=== PATIENT | female | born 1945 | race Hispanic/Latino ===

== ENCOUNTER 2017-05-20 18:56 | Emergency (ER) | payer MEDICARE ==
[~2017-05-20] VITALS: Ht 157.5 cm; Wt 59.0 kg
[~2017-05-20 18:56] MED LIST: ATORVASTATIN CA10 MG PO; CALCIUM600 MG PO; FISH OIL 1,2001 EACH PO; FOLIC ACID PO; LISINOPRIL-HCT1 EAC3 PO; METOPROLOL TART25 MG PO; PANTOPRAZOLE SO40 MG PO; SUCRALFATE1 GM PO; TRADJENTA5 MG PO; Z ALPRAZOLAM PO; Z.0.ESTRADIOL0.5 MG PO; Z.0.LEVOTHYROXINE150 PO; Z.0.METFORMIN HCL850 PO; [UNRECOGNIZED DRUG - OTHER] PO
== END 2017-05-20 21:02 | disposition home or self-care (01) ==
LOC: ER 18:56
DX: L03.113 Cellulitis of right upper limb (principal); M79.631 Pain in right forearm
CPT/HCPCS: 99282

== ENCOUNTER → 2017-05-22 | Outpatient (CLI) | payer MEDICARE ==
--- NOTE | 2017-05-22 11:39 | Diagnostic Imaging Report ---
EXAM: DXA BONE DENSITY INDICATIONS: OSTEOPOROSIS WITHOUT PATH FX COMPARISON: Bone mineral density study 04/23/2014. FINDINGS: Proximal left femur total bone mineral density (BMD) (g/cm2):0.617 Femur T-score (standard deviation relative to young adult mean BMD): -2.6 Femur Z-score (standard deviation relative to age-matched control group):-1.0 Proximal left femur neck bone mineral density (BMD) (g/cm2):0.615 Femur T-score (standard deviation relative to young adult mean BMD): -2.2 Femur Z-score (standard deviation relative to age-matched control group):-0.3 Lumbar bone mineral density (BMD) (g/cm2):0.918 Lumbar T-score (standard deviation relative to young adult mean BMD): -1.2 Lumbar Z-score (standard deviation relative to age-matched control group):1.1 Change since prior exam (%): Femur:-5.0. Spine:-0.3. Change since oldest prior exam (%): Femur:Not applicable. Spine:Not applicable. CONCLUSION: 1. Bone mineral density in the left femur is classified as osteoporosis. Fracture risk is high. 2. Bone mineral density in the spine is classified as osteopenia. Fracture risk is increased. World Health Organization Classification: *The Z-score is provided for informational purposes. The T-score is preferable for clinical decisions. When comparing exams, a change of >4% is considered statistically significant. SUGGESTED RECOMMENDATIONS: Normal \T\ Osteopenia:Consideration should be given to use of calcium supplementation, daily multiple vitamins and adequate exercise, as preventive measures against osteoporosis, if clinically indicated. Osteoporosis \T\ Severe Osteoporosis:In addition to the above, consideration should be given to medical therapy against osteoporosis, if clinically indicated. Carlos Sweeney M.D. Dictated by: Carlos wSeeney M.D. on 05/22/2017 at 11:48 Electronically approved by: Carlos Sweeney M.D. on 05/22/2017 at 11:48
== END ==
LOC: DX 10:29
PROVIDERS: ATTEND Family Medicine
DX: M81.0 Age-related osteoporosis without current pathological fracture (principal)
CPT/HCPCS: 77080

== ENCOUNTER → 2017-06-11 | Outpatient (CLI) | payer MEDICARE ==
--- NOTE | 2017-06-25 08:25 | Diagnostic Imaging Report ---
#[id number] - MGSCRBIL #BILATERAL DIGITAL SCREENING MAMMOGRAM WITH CAD: 06/11/2017 CLINICAL: Routine screening. Comparison is made to exams dated: 05/04/2016 mammogram, 05/09/2015 mammogram and 04/23/2014 mammogram - [facility]. Current study contains 4 films. The tissue of both breasts is extremely dense, which lowers the sensitivity of mammography. Current study was also evaluated with a Computer Aided Detection (CAD) system. There are benign vascular calcifications and calcifications in both breasts. There also is a biopsy clip in the left breast. No significant masses, calcifications, or other findings are seen in either breast. There has been no significant interval change. IMPRESSION: BENIGN There is no mammographic evidence of malignancy. A 1 year screening mammogram is recommended. The patient will be notified by letter of the results. Chauncey ruby/vanita:06/24/2017 10:08:57 Apartment Coordinator: Genoveva CERRATO(R)(M), [facility] letter sent: Compared to Prior B9 Mammogram BI-RADS: 2 Benign
== END ==
LOC: MAMMO 13:36
PROVIDERS: ATTEND Family Medicine
DX: Z12.31 Encounter for screening mammogram for malignant neoplasm of breast (principal)
CPT/HCPCS: 77067

== ENCOUNTER → 2018-06-09 | Outpatient (CLI) | payer MEDICARE ==
--- NOTE | 2018-06-09 15:49 | Diagnostic Imaging Report ---
EXAM: BONE MINERAL DENSITY HISTORY: Bone mineralization evaluation COMPARISON: None DISCUSSION: Evaluation of the left hip and lumbar spine was performed utilizing DEXA Hologic bone densitometer. The study is technically adequate. Left hip femoral neck bone mineral density: 0.61 g/cm2, T-score is -2.3, Z-score is -0.3. Left hip total bone mineral density: 0.62 g/cm2, T-score is -2.6, Z-score is -0.9. Bone mineralization increased by 0.4%. Lumbar spine total bone mineral density: 0.88 gm/cm2, T-score is -1.5, Z-score is 0.8. Bone mineralization decreased by 3.9%. Impression: Bone mineralization by WHO Classification is osteoporosis, the fracture risk is increased. Signed by: Dr. Laurent Negrete M.D. on 06/09/2018 3:46 PM
== END ==
LOC: DX 13:22
PROVIDERS: ATTEND Internal Medicine
DX: M81.0 Age-related osteoporosis without current pathological fracture (principal)
CPT/HCPCS: 77080

== ENCOUNTER → 2018-06-27 | Outpatient (CLI) | payer MEDICARE | LOC: MAMMO 12:43 | PROVIDERS: ATTEND Family Medicine | DX: Z12.31 Encounter for screening mammogram for malignant neoplasm of breast (principal) | CPT/HCPCS: 77067 ==

== ENCOUNTER → 2018-12-25 | Day surgery (SDC) | payer MEDICARE ==
[2018-12-24 13:59] LABS: BASOPHILS # (AUTO) 0.1 (0.0-0.1); BASOPHILS % 0.5 % (0.0-1.0); EOSINOPHILS # (AUTO) 0.7 (0.0-0.4); EOSINOPHILS % 5.3 % (0.0-6.0); HEMATOCRIT 33.6 % (34.2-44.1); HEMOGLOBIN 10.4 g/dL (12.0-16.0); LYMPHOCYTES # (AUTO) 2.2 (1.0-3.2); MEAN CORPUSCULAR HEMOGLOBIN 30.7 pg (28-32); MEAN CORPUSCULAR VOLUME 99.1 fL (81-99); NEUTROPHILS # (AUTO) 8.9 (2.1-6.9); NEUTROPHILS % 68.9 % (38.7-80.0); PLATELET COUNT 227 x10e3/uL (140-360); RED BLOOD COUNT 3.39 x10e6/uL (3.6-5.1)
[2018-12-24 14:09] LABS: INR 0.99; PROTHROMBIN TIME 13.6 seconds (11.9-14.5)
[2018-12-24 14:10] LABS: PARTIAL THROMBOPLASTIN TIME 36.9 seconds (23.8-35.5)
[2018-12-24 14:19] LABS: ALBUMIN 3.4 g/dL (3.5-5.0); ALBUMIN/GLOBULIN RATIO 0.7 (0.8-2.0); ANION GAP 16.1 mmol/L (8-16); CREATININE, SERUM 2.62 mg/dL (0.57-1.11); POTASSIUM 3.1 mmol/L (3.5-5.1)
[~2018-12-25] MED LIST changes: +ATROPINE SULFATE 1 MG/ML VIAL ONE; +FENTANYL CITRATE/PF 100MCG/2 ML INJ ONE; +HYOSCYAMINE 0.125 MG TAB ONE; +MIDAZOLAM HCL 2 MG/2 ML VIAL ONE; +PROPOFOL IV EMULSION 10 MG/ML 50 ML VIAL ONE
--- OUTSIDE RECORDS SUMMARY | 2018-12-25 10:15 | XMS REPORT | Clinical Summary ---
Author Author [facility] Address Unknown Phone Unavailable Care Team Providers Care Esl Instructional Assistant Name Role Phone Osmin Marte DO PCP Allergies Comments Active Allergy Reactions Severity Noted Date HALUCINATES Propoxyphene Other (See 09/30/2017 N-Acetaminophen Comments) HALUCINATES Penicillins Other (See 09/04/2016 Comments) Medications End Date Status Medication Sig Dispensed Refills Start Date Active levothyroxine (SYNTHROID, Take 112 mcg 0 LEVOXYL) 112 mcg tablet by mouth 7 daily. Active ALPRAZolam (XANAX) 0.5 MG Take 0.5 mg 0 tablet by mouth 7 nightly. Active atorvastatin (LIPITOR) 20 Take 20 mg by 0 MG tablet mouth daily. 7 Active leflunomide (ARAVA) 10 MG Take 1 tablet 0 tablet by mouth 9 daily. Active allopurinol (ZYLOPRIM) Take 1 tablet 0 100 MG tablet by mouth 9 daily. Active mirtazapine (REMERON) 15 Take 15 mg by 0 MG tablet mouth nightly. Active aspirin (ECOTRIN) 325 MG Take 325 mg 0 enteric coated tablet by mouth every 6 (six) hours as needed for mild pain. 08/13/2018 Discontinued lisinopril-hydrochlorothi 0 azide 7 (PRINZIDE,ZESTORETIC) 20-25 mg per tablet 08/13/2018 Discontinued pantoprazole (PROTONIX) Take 40 mg by 0 40 MG EC tablet mouth daily. 7 08/19/2018 Discontinued sucralfate (CARAFATE) 1 Take 1 g by 0 gram tablet mouth 2 (two) times a day. 08/13/2018 Discontinued estradiol (ESTRACE) 0.5 Take 0.5 mg 0 MG tablet by mouth every other day. 03/11/2018 ciprofloxacin (CIPRO) 500 Take 1 tablet 14 tablet 0 MG tablet (500 mg 8 total) by mouth 2 (two) times a day for 7 days. 04/03/2018 ondansetron ODT (ZOFRAN Take 1 tablet 15 tablet 0 ODT) 4 MG disintegrating (4 mg total) 8 tablet by mouth every 8 (eight) hours as needed for nausea or vomiting for up to 30 days. 08/19/2018 Discontinued omeprazole (PriLOSEC) 20 Take 20 mg by 0 MG capsule mouth daily. 08/19/2018 Discontinued ibuprofen (ADVIL,MOTRIN) Take 200 mg 0 200 MG tablet by mouth every 6 (six) hours as needed for mild pain. 09/18/2018 bisacodyl (DULCOLAX) 10 Insert 1 0 mg suppository suppository 9 (10 mg total) into the rectum daily as needed for constipation for up to 30 days. 09/18/2018 sucralfate (CARAFATE) 1 Take 1 tablet 60 tablet 0 gram tablet (1 g total) 9 by mouth 4 (four) times a day for 30 days. 09/18/2018 pantoprazole (PROTONIX) Take 1 tablet 60 tablet 0 40 MG EC tablet (40 mg total) 9 by mouth 2 (two) times a day for 30 days. Active Problems Problem Noted Date Hypophosphatemia 08/16/2018 Disease of thyroid gland 08/14/2018 Osteoporosis 08/14/2018 Multiple gastric ulcers 08/14/2018 C. difficile colitis 05/15/2017 Hypokalemia 05/15/2017 GRAYSON (acute kidney injury) 05/13/2017 CKD (chronic kidney disease), stage IV 05/13/2017 Generalized weakness 05/12/2017 UTI (urinary tract infection) 09/06/2016 Diabetes mellitus 09/06/2016 Hyperlipemia 09/06/2016 Hypertension 09/06/2016 Dehydration 09/05/2016 Septicemia due to Klebsiella pneumoniae 09/05/2016 Gastroenteritis, acute 09/05/2016 Encounters Care Team Description Date Type Specialty Jean-Paul Fischer MD 08/15/2018 Anesthesia Gastroenterology Event Porfirio Ruffin MD ESOPHAGOGASTRODUODENOSCOPY (EGD) 08/15/2018 Surgery Gastroenterology Debora Santiago MD Mayen Nunez, Jose Isaias, MD GRAYSON (acute kidney injury) (HCC) (Primary Dx); Acute pancreatitis, unspecified complication status, unspecified pancreatitis type; Anemia, unspecified type; Diarrhea, unspecified type; Gastroenteritis, acute 08/13/2018 Hospital General Internal Medicine - Encounter 08/19/2018 Saurabh Farias DO Acute cystitis with hematuria (Primary Dx) 03/04/2018 Emergency Emergency Medicine Jd Marques MD Age-related osteoporosis without current pathological fracture; Left shoulder pain, unspecified chronicity 02/27/2018 Hospital Radiology Encounter Jd Marques MD Age-related osteoporosis without current pathological fracture; Left shoulder pain, unspecified chronicity 02/27/2018 Hospital Radiology Encounter Jd Marques MD Age-related osteoporosis without current pathological fracture (Primary Dx); Left shoulder pain, unspecified chronicity 02/21/2018 Transcribe Access Orders after 12/24/2017 Family History Medical History Relation Name Comments Diabetes Brother Hypertension Brother Stroke Father Diabetes Mother Diabetes Sister Hypertension Sister Relation Name Status Comments Brother Father Mother Sister Social History Date Tobacco Use Types Packs/Day Years Used Current Every Day Smoker 1 Smokeless Tobacco: Never Used Tobacco Cessation: Counseling Given: Yes Comments: will try Alcohol Use Drinks/Week oz/Week Comments No Sex Assigned at Date Recorded Not on file Industry Job Start Date Occupation Not on file Not on file Not on file Travel End Travel History Travel Start No recent travel history available. Last Filed Vital Signs Time Taken Vital Sign Reading 08/19/2018 3:41 PM CDT Blood Pressure 130/79 08/19/2018 3:41 PM CDT Pulse 76 08/19/2018 3:41 PM CDT Temperature 36.7 C (98.1 F) 08/19/2018 3:41 PM CDT Respiratory Rate 18 08/19/2018 3:41 PM CDT Oxygen Saturation 95% - Inhaled Oxygen - Concentration 08/13/2018 2:48 PM CDT Weight 55.8 kg (123 lb) 03/04/2018 1:02 PM CDT Height 160 cm (5' 3") 03/04/2018 1:02 PM CDT Body Mass Index 21.79 Plan of Treatment Health Maintenance Due Date Last Done Comments DIABETIC RETINAL EYE EXAM 1945 DIABETIC FOOT EXAM 1955 BREAST CANCER SCREENING 1995 COLONOSCOPY SCREENING 1995 SHINGLES VACCINES (#1) 1995 65+ PNEUMOCOCCAL VACCINE 2010 (1 of 2 - PCV13) INFLUENZA VACCINE 12/11/2018 Procedures Comments Procedure Name Priority Date/Time Associated Diagnosis HC COMPLETE BLD COUNT STAT 08/19/2018 W/AUTO DIFF 5:10 AM CDT ESTIMATED GFR Routine 08/19/2018 5:00 AM CDT BASIC METABOLIC PANEL Routine 08/19/2018 5:00 AM CDT LIPASE LEVEL Routine 08/19/2018 5:00 AM CDT MAGNESIUM LEVEL Routine 08/18/2018 7:50 PM CDT POC GLUCOSE Routine 08/18/2018 4:30 PM CDT POC GLUCOSE Routine 08/18/2018 11:55 AM CDT MAGNESIUM LEVEL Routine 08/18/2018 6:43 AM CDT PHOSPHORUS LEVEL Routine 08/18/2018 6:43 AM CDT ESTIMATED GFR Routine 08/18/2018 6:43 AM CDT BASIC METABOLIC PANEL Routine 08/18/2018 6:43 AM CDT LIPASE LEVEL Routine 08/18/2018 6:43 AM CDT POC GLUCOSE Routine 08/17/2018 5:41 PM CDT MRI BRAIN WO CONTRAST STAT 08/17/2018 4:02 PM CDT GASTROINTESTINAL PANEL Routine 08/17/2018 9:41 AM CDT LIPASE LEVEL Routine 08/17/2018 6:39 AM CDT ESTIMATED GFR Routine 08/17/2018 6:39 AM CDT PHOSPHORUS LEVEL Routine 08/17/2018 6:39 AM CDT HC COMPLETE BLD COUNT Routine 08/17/2018 W/AUTO DIFF 6:39 AM CDT BASIC METABOLIC PANEL Routine 08/17/2018 6:39 AM CDT TRANSFUSE RED BLOOD CELLS Routine 08/16/2018 9:28 PM CDT TRANSFUSE RED BLOOD CELLS Routine 08/16/2018 3:00 PM CDT PREPARE RBC Routine 08/16/2018 9:05 AM CDT TYPE AND SCREEN Routine 08/16/2018 9:05 AM CDT SMEAR REVIEW Routine 08/16/2018 5:00 AM CDT PHOSPHORUS LEVEL Routine 08/16/2018 5:00 AM CDT ESTIMATED GFR Routine 08/16/2018 5:00 AM CDT HEMOGLOBIN A1C Routine 08/16/2018 5:00 AM CDT THYROID STIMULATING Routine 08/16/2018 HORMONE 5:00 AM CDT MAGNESIUM LEVEL Routine 08/16/2018 5:00 AM CDT LIPASE LEVEL Routine 08/16/2018 5:00 AM CDT HC COMPLETE BLD COUNT Routine 08/16/2018 W/AUTO DIFF 5:00 AM CDT COMPREHENSIVE METABOLIC Routine 08/16/2018 PANEL 5:00 AM CDT SURGICAL PATHOLOGY Routine 08/15/2018 REQUEST 12:10 PM CDT ESOPHAGOGASTRODUODENOSCOP 08/15/2018 epigastric pain Y (EGD) 11:30 AM CDT LIPASE LEVEL Routine 08/15/2018 5:38 AM CDT ESTIMATED GFR Routine 08/15/2018 5:38 AM CDT MAGNESIUM LEVEL Routine 08/15/2018 5:38 AM CDT PHOSPHORUS LEVEL Routine 08/15/2018 5:38 AM CDT HC COMPLETE BLD COUNT Routine 08/15/2018 W/AUTO DIFF 5:38 AM CDT COMPREHENSIVE METABOLIC Routine 08/15/2018 PANEL 5:38 AM CDT NM HEPATOBILIARY W PHARM STAT 08/14/2018 11:18 PM CDT US GALLBLADDER Routine 08/14/2018 7:55 PM CDT ESTIMATED GFR STAT 08/14/2018 5:12 PM CDT COMPREHENSIVE METABOLIC STAT 08/14/2018 PANEL 5:12 PM CDT ARTERIAL BLOOD GAS Routine 08/14/2018 7:50 AM CDT ESTIMATED GFR Routine 08/14/2018 4:58 AM CDT COMPREHENSIVE METABOLIC Routine 08/14/2018 PANEL 4:58 AM CDT HC COMPLETE BLD COUNT Routine 08/14/2018 W/AUTO DIFF 4:58 AM CDT LIPASE LEVEL Routine 08/14/2018 4:48 AM CDT POC GLUCOSE Routine 08/13/2018 9:16 PM CDT BLOOD CULTURE, AEROBIC & Routine 08/13/2018 ANAEROBIC 6:35 PM CDT BLOOD CULTURE, AEROBIC & Routine 08/13/2018 ANAEROBIC 6:25 PM CDT URINALYSIS SCREEN AND Routine 08/13/2018 MICROSCOPY, WITH REFLEX 4:[address] ABDOMEN PELVIS WO STAT 08/13/2018 CONTRAST 3:[address] HEAD WO CONTRAST STAT 08/13/2018 3:38 PM CDT ESTIMATED GFR STAT 08/13/2018 3:00 PM CDT LIPASE LEVEL STAT 08/13/2018 3:00 PM CDT LACTIC ACID LEVEL STAT 08/13/2018 3:00 PM CDT PARTIAL THROMBOPLASTIN STAT 08/13/2018 TIME (PTT) 3:00 PM CDT PROTHROMBIN TIME WITH INR STAT 08/13/2018 3:00 PM CDT COMPREHENSIVE METABOLIC STAT 08/13/2018 PANEL 3:00 PM CDT HC COMPLETE BLD COUNT STAT 08/13/2018 W/AUTO DIFF 3:00 PM CDT URINALYSIS SCREEN AND STAT 03/04/2018 MICROSCOPY, WITH REFLEX 1:15 PM CDT TO CULTURE GRAM STAIN STAT 03/04/2018 1:15 PM CDT URINE CULTURE STAT 03/04/2018 1:15 PM CDT XR SHOULDERS BILATERAL Routine 02/27/2018 Age-related osteoporosis 2:30 PM CDT without current pathological fracture Left shoulder pain, unspecified chronicity BONE DENSITY Routine 02/27/2018 Age-related osteoporosis 2:05 PM CDT without current pathological fracture Left shoulder pain, unspecified chronicity TRANSFUSE RED BLOOD CELLS Routine 01/15/2018 5:47 PM CDT after 12/24/2017 Results * CBC with platelet and differential (08/19/2018 5:10 AM CDT) Only the most recent of 6 results within the time period is included. WBC 8.55 4.50 - 11.00 k/uL [facility] RBC 3.81 (L) 4.20 - 5.50 m/uL [facility] HGB 11.7 (L) 12.0 - 16.0 g/dL [facility] HCT 37.2 37.0 - 47.0 % [facility] MCV 97.6 82.0 - 100.0 fL [facility] MCH 30.7 27.0 - 34.0 pg [facility] MCHC 31.5 31.0 - 37.0 g/dL [facility] RDW - SD 49.9 37.0 - 55.0 fL [facility] MPV 12.6 8.8 - 13.2 fL [facility] Platelet count 162 150 - 400 k/uL [facility] Nucleated RBC 0.00 /100 WBC [facility] Neutrophils 56.7 39.0 - 69.0 % [facility] Lymphocytes 26.4 25.0 - 45.0 % [facility] Monocytes 10.4 (H) 0.0 - 10.0 % [facility] Eosinophils 5.6 (H) 0.0 - 5.0 % [facility] Basophils 0.7 0.0 - 1.0 % [facility] Specimen Blood Performing Organization Address City/State/Zipcode [place] Number [place] [address] [place] [address] PATHOLOGY AND GENOMIC MEDICINE [facility] [address] [place] [address] [facility] * Estimated GFR (08/19/2018 5:00 AM CDT) Only the most recent of 8 results within the time period is included. Estimated GFR 24 (A) mL/min/1.73 m2 CARMINE Comment: [facility] rpretation G1 >=90 Normal or high G2 60-89Mildly decreased [id number] Mildly to moderately decreased [id number] Moderately to severely decreased G4 15-29Severely decreased G5 <15Kidney failure The eGFR was calculated using the Chronic Kidney Disease Epidemiology Collaboration (CKD-EPI) equation. Interpretation is based on recommendations of the National Kidney Foundation-Kidney Disease Outcomes Quality Initiative (NKF-KDOQI) published in 2014. Specimen Plasma specimen Performing Organization Address City/[facility]/Zipcode Phone Number [address] [place] [address] PATHOLOGY [address] * Lipase level (08/19/2018 5:00 AM CDT) Only the most recent of 7 results within the time period is included. Lipase 52 13 - 60 U/L [facility] Specimen Plasma specimen Performing Organization Address [facility] Phone Number [facility] DEPARTMENT [address] [place] [address] PATHOLOGY AND [address] * Basic metabolic panel (08/19/2018 5:00 AM CDT) Only the most recent of 3 results within the time period is included. Sodium 138 135 - 148 mEq/L [facility] Potassium 4.3 3.5 - 5.0 mEq/L [facility] Chloride 104 98 - 112 mEq/L [facility] CO2 22 (L) 24 - 31 mEq/L [facility] Anion gap 12@ANIO 7 - 15 mEq/L [facility] BUN 16 8 - 23 mg/dL [facility] Creatinine 2.00 (H) 0.50 - 0.90 mg/dL [facility] Glucose 99 65 - 99 mg/dL [facility] Calcium 9.2 8.8 - 10.2 mg/dL [facility] Specimen Plasma specimen Performing Organization Address [facility] Phone Number [address] [place] [address] PATHOLOGY AND [address] * Magnesium level (08/18/2018 7:50 PM CDT) Only the most recent of 4 results within the time period is included. Magnesium 2.2 1.6 - 2.4 mg/dL [facility] Specimen Plasma specimen Performing Organization Address City/[facility]/Zipcode Phone Number [facility] DEPARTMENT [address] [place] [address] PATHOLOGY AND GENOMIC MEDICINE [address] * POC glucose (08/18/2018 4:30 PM CDT) Only the most recent of 4 results within the time period is included. POC glucose 168 (H) 65 - 99 mg/dL CARMINE Comment: [facility] Meter ID: [id number] [facility] Health Science Instructor: Cristel Hicks Specimen Performing Organization Address [facility] Phone Number [address] [place] [address] PATHOLOGY AND GENOMIC MEDICINE [address] * Phosphorus level (08/18/2018 6:43 AM CDT) Only the most recent of 4 results within the time period is included. Pathologist [facility] Phosphorus 3.1 2.4 - 4.5 mg/dL [facility] Specimen Plasma specimen Performing Organization Address City/[facility] Phone Number [address] [place] [address] PATHOLOGY AND GENOMIC MEDICINE [address] * MRI Brain Wo Contrast (08/17/2018 4:02 PM CDT) Specimen Narrative Performed At EXAMINATION: MRI BRAIN WO CONTRAST RADIANT CLINICAL HISTORY: Neuro deficit(s)subacute, Tobacco use COMPARISON:CT brain from August 13, 2018 TECHNIQUE: Multiplanar and multisequence MRI imaging of the brain was obtained without contrast. FINDINGS: There is no evidence of acute infarct, intracranial hemorrhage or mass, hydrocephalus or midline shift. 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 There is nonspecific enlargement of the ventricles and extra axial space and white matter changes. There are old infarcts or perivascular spaces in the thalami and basal ganglia. The sella is partially empty. There is pseudophakia. The sinuses and mastoid air cells do not show significant acute abnormality. IMPRESSION: No acute findings in the brain. [id number] Procedure Note Hm Interface, Radiology Results Incoming - 08/17/2018 4:07 PM CDT EXAMINATION: MRI BRAIN WO CONTRAST CLINICAL HISTORY: Neuro deficit(s) subacute, Tobacco use COMPARISON: CT brain from August 13, 2018 TECHNIQUE: Multiplanar and multisequence MRI imaging of the brain was obtained without contrast. FINDINGS: There is no evidence of acute infarct, intracranial hemorrhage or mass, hydrocephalus or midline shift. 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 There is nonspecific enlargement of the ventricles and extra axial space and white matter changes. There are old infarcts or perivascular spaces in the thalami and basal ganglia. The sella is partially empty. There is pseudophakia. The sinuses and mastoid air cells do not show significant acute abnormality. IMPRESSION: No acute findings in the brain. [facility]-[id number] Performing Organization Address City/State/Zipcode Phone Number [place] [phone] * Gastrointestinal panel (08/17/2018 9:41 AM CDT) Gastrointestina Negative for all pathogens [facility] panel tested: CA[facility]AISM Negative for Salmonella HOSPITAL Negative for Campylobacter Negative for Diarrheagenic E coli/Shigella Negative for Shiga-like toxin-producing E coli Negative for Plesiomonas shigelloides Negative for Yersinia enterocolitica Negative for Vibrio species Negative for Clostridium difficile (Toxin A/B) Negative for Cryptosporidium Negative for Giardia lamblia Negative for Cyclospora cayeteanensis Negative for Entamoeba histolytica Negative for Adenovirus F 40/41 Negative for Astrovirus Negative for Norovirus GI/GII Negative for Rotavirus A Negative for Sapovirus Negative for Clostridium difficile toxin Negative for E coli 0157 This real-time PCR assay detects the presence of nucleic acids (RNA or DNA) for the gastrointestinal pathogens listed. A result of "Not-detected" does not exclude the possibility of the presence of one or more pathogens at concentrations less than the detectable limits of the assay. Comment: Specimen Information Specimen Source: Stool Specimen Site: Nonpreserved Specimen Stool - Nonpreserved Performing Organization Address City/State/Zipcode Phone Number [facility] DEPARTMENT [address] [address] PATHOLOGY AND GENOMIC MEDICINE [facility] [address] [place] [address] HOSPITAL * Transfuse RBC (08/16/2018 9:28 PM CDT) Only the most recent of 4 results within the time period is included. * Prepare RBC, 2 Units (08/16/2018 9:05 AM CDT) Product name Red Blood Cells -1, Leukored [facility] Unit number [id number] [facility] Product code [id number] [facility] Dispense status Transfused [facility] Blood CARMINE expiration date [facility] Blood type code 6200 [facility] Blood type A POSITIVE [facility] Product name Red Blood Cells -1, Leukored [facility] Unit number [id number] [facility] Product code [id number] [facility] Dispense status Transfused [facility] Blood CARMINE expiration date [facility] Blood type code 6200 [facility] Blood type A POSITIVE [facility] Specimen Blood Performing Organization Address [facility] Phone Number [address] [place] [address] PATHOLOGY AND GENOMIC MEDICINE [address] * Type and screen (08/16/2018 9:05 AM CDT) ABO grouping A [facility] Rh type POS [facility] Antibody screen NEG [facility] Specimen Blood Performing Organization Address City/[facility] Phone Number [address] [place] [address] PATHOLOGY AND GENOMIC MEDICINE [address] * Smear review (08/16/2018 5:00 AM CDT) Platelet slide Marlo adequate [facility] Anisocytosis few [facility] Schistocytes Occasional [facility] Ovalocytes few [facility] Stomatocytes Occasional [facility] Specimen Performing Organization Address City/[facility] Phone Number [facility] DEPARTMENT [address] [place] [address] PATHOLOGY AND GENOMIC MEDICINE [address] * Thyroid stimulating hormone (08/16/2018 5:00 AM CDT) Pathologist [facility] TSH 0.93 0.27 - 4.20 uIU/mL [facility] Specimen Plasma specimen Performing Organization Address [facility] Phone Number [address] [place] [address] PATHOLOGY AND GENOMIC MEDICINE [address] * Hemoglobin A1c (08/16/2018 5:00 AM CDT) Pathologist [facility] Hemoglobin A1C 4.8 4.0 - 5.6 % CARMINE Comment: [facility] HbA1c cutoffs for diagnosing [facility] diabetes: 4.0% - 5.6%=normal 5.7% - 6.4%=increased risk for diabetes (prediabetes) >=6.5%=diabetes Goals for glycemic control (ADA 2016) < 7.0%Target for non adults with diabetes. More or less stringent targets may be appropriate for individual patients. <7.5% Target for Children and adolescents with type 1 diabetes. Specimen Blood Performing Organization Address [facility] Phone Number [address] [place] [address] PATHOLOGY AND [facility] MEDICINE [address] * Comprehensive metabolic panel (08/16/2018 5:00 AM CDT) Only the most recent of 5 results within the time period is included. Pathologist [facility] Sodium 144 135 - 148 mEq/L [facility] Potassium 4.2 3.5 - 5.0 mEq/L [facility] Chloride 99 98 - 112 mEq/L [facility] CO2 35 (H) 24 - 31 mEq/L [facility] Anion gap 10@ANIO 7 - 15 mEq/L [facility] BUN 27 (H) 8 - 23 mg/dL [facility] Creatinine 1.70 (H) 0.50 - 0.90 mg/dL [facility] Glucose 125 (H) 65 - 99 mg/dL [facility] Calcium 7.8 (L) 8.8 - 10.2 mg/dL [facility] Protein 6.3 6.3 - 8.3 g/dL CARMINE Comment: [facility] 4.6-7.0 g/dL 1 week 4.4-7.6 g/dL 7 months-1year 5.1-7.3 g/dL 1-2 years5.6-7 .5 g/dL >3 years6.0-8 .0 g/dL 18-150 6.3-8.3 g/dL Albumin 3.0 (L) 3.5 - 5.0 g/dL [facility] A/G ratio 0.9 0.7 - 3.8 [facility] Alkaline 92 35 - 104 U/L [facility] phosphatase [facility] AST 17 10 - 35 U/L [facility] ALT 5 5 - 50 U/L [facility] Total bilirubin 0.4 0.0 - 1.2 mg/dL [facility] Specimen Plasma specimen Performing Organization Address [facility] Phone Number [address] [place] [address] PATHOLOGY AND GENOMIC MEDICINE [address] * Surgical pathology request (08/15/2018 12:10 PM CDT) [facility] DEPARTMENT OF PATHOLOGY AND GENOMIC MEDICINE Surgical See link below for PDF Lab [facility] pathology Report DEPARTMENT OF report PATHOLOGY AND GENOMIC MEDICINE Result status This is Final Report for [facility] [id number] DEPARTMENT OF PATHOLOGY AND GENOMIC MEDICINE Specimen Performing Organization Address City/[facility] Phone Number [address] [place] [phone] PATHOLOGY AND GENOMIC MEDICINE * [place] Hepatobiliary W Pharm (HIDA Scan w Pharm) (08/14/2018 11:18 PM CDT) Specimen Narrative Performed At PROCEDURE: NM HEPATOBILIARY W PHARM (HIDA SCAN W PHARM) RADIANT INDICATION: RUQ painno feverno elev WBC COMPARISON: Gallbladder ultrasound 08/14/2018 TECHNIQUE: The patient was injected with 6 mCi of [id number]-Tfxyccdw and dynamic images of the abdomen were acquired for up to 1 hour. The patient was then injected with intravenous CCK per protocol and imaged for an additional 60 minutes. FINDINGS: Tracer activity is seen within the gallbladder and small bowel by one hour of imaging. With CCK infusionthere is poor contraction of the gallbladder with a calculated ejection fraction of 9%. IMPRESSION: 1.No scintigraphic evidence of acute cholecystitis or common bile duct obstruction. 2.Reduced gallbladder ejection fraction in response to CCK stimulation. In the appropriate clinical context, this finding is compatible with chronic cholecystitis/biliary dyskinesia. Please note that recently administered opiates may also reduce the gallbladder ejection fraction. [facility] Procedure Note [facility], Radiology Results Incoming - 08/14/2018 11:25 PM CDT PROCEDURE: NM HEPATOBILIARY W PHARM (HIDA SCAN W PHARM) INDICATION: RUQ pain no fever no elev WBC COMPARISON: Gallbladder ultrasound 08/14/2018 TECHNIQUE: The patient was injected with 6 mCi of [id number]-Eocoabam and dynamic images of the abdomen were acquired for up to 1 hour. The patient was then injected with intravenous CCK per protocol and imaged for an additional 60 minutes. FINDINGS: Tracer activity is seen within the gallbladder and small bowel by one hour of imaging. With CCK infusion there is poor contraction of the gallbladder with a calculated ejection fraction of 9%. IMPRESSION: 1. No scintigraphic evidence of acute cholecystitis or common bile duct obstruction. 2. Reduced gallbladder ejection fraction in response to CCK stimulation. In the appropriate clinical context, this finding is compatible with chronic cholecystitis/biliary dyskinesia. Please note that recently administered opiates may also reduce the gallbladder ejection fraction. [facility] Performing Organization Address City/State/Zipcode Phone Number [facility] [address] [place] [address] * US Gallbladder (08/14/2018 7:55 PM CDT) Specimen Narrative Performed At EXAMINATION:US GALLBLADDER [facility] CLINICAL HISTORY:RUQ painno feverno elev WBC COMPARISON:None. TECHNIQUE:Sonographic evaluation of the gallbladder. FINDINGS: GALLBLADDER: The gallbladder is distended (11 x 5.7 x 4.0 cm) and contains a small amount of layering echogenic sludge. The gallbladder wall measures approximately 3-4 mm in thickness. There is no pericholecystic fluid. There is a negative sonographic Rivera sign. BILIARY: The common bile duct measures 5 mm, within normal limits. VASCULATURE:The portal vein is normal in size and patent with hepatopedal flow. OTHER: No ascites in the right upper quadrant. IMPRESSION: Distended, sludge-containing gallbladder without definite evidence of acute cholecystitis. [facility]-[id number] Procedure Note Hm Interface, Radiology Results Incoming - 08/14/2018 10:58 PM CDT EXAMINATION: US GALLBLADDER CLINICAL HISTORY: RUQ pain no fever no elev WBC COMPARISON: None. TECHNIQUE: Sonographic evaluation of the gallbladder. FINDINGS: GALLBLADDER: The gallbladder is distended (11 x 5.7 x 4.0 cm) and contains a small amount of layering echogenic sludge. The gallbladder wall measures approximately 3-4 mm in thickness. There is no pericholecystic fluid. There is a negative sonographic Rivera sign. BILIARY: The common bile duct measures 5 mm, within normal limits. VASCULATURE: The portal vein is normal in size and patent with hepatopedal flow. OTHER: No ascites in the right upper quadrant. IMPRESSION: Distended, sludge-containing gallbladder without definite evidence of acute cholecystitis. [facility]-[id number] Performing Organization Address [facility]/Zipcode Phone Number [facility] [address] [place] [address] * Arterial blood gas (08/14/2018 7:50 AM CDT) pH, arterial 7.13 (LL)Comment: Results 7.35 - 7.45 CARMINE called to and read back by DONNA KENT ON 08/14/2018 [facility] 08:10 BY ELLEN pCO2, arterial 20 (LL)Comment: Results called 35 - 45 mmHg CARMINE to and read back by KATIE MILLAN ON 08/14/2018 08:10 [facility] BY ELLEN pO2, arterial 125 (H) 80 - 90 mmHg [facility] Bicarbonate, 8.9 (L) 21.0 - 28.0 mmol/L CARMINE arterial [facility] Base excess, -21 (L) -2 - 2 mEq/L CARMINE arterial [facility] O2 saturation, 98 95 - 100 % CARMINE arterial [facility] FiO2, inspired 21 % CARMINE O2% [facility] Specimen Blood Performing Organization Address City/State/Zipcode [place] Number [place] [address] [place] [address] PATHOLOGY AND GENOMIC MEDICINE [facility] [address] [place] [address] [facility] * Blood culture, aerobic & anaerobic (08/13/2018 6:35 PM CDT) Only the most recent of 2 results within the time period is included. Blood culture No growth after 5 days of CARMINE isolate incubation. [facility] Comment: HOSPITAL Specimen Information Specimen Source: Blood Specimen Site: Arm, left Specimen Blood - Arm, left Performing Organization Address City/[facility]/Zipcode Phone Number [facility] DEPARTMENT OF [address] [place] [address] PATHOLOGY AND GENOMIC MEDICINE [facility] [place] [place] [address] [place] [address] [facility] * CT Abdomen Pelvis Wo Contrast (08/13/2018 3:38 PM CDT) Specimen Narrative Performed At EXAMINATION:CT ABDOMEN PELVIS WO CONTRAST [facility] CLINICAL HISTORY:nausea vomitingdiarrhea TECHNIQUE:Multiple axial images of the abdomen and pelvis were obtained without intravenous administration of iodinated contrast. Sagittal and coronal computerized reformatted images were also obtained. The lack of intravenous contrast reduces the sensitivity of detecting solid organ disease. CT imaging was performed with iterative reconstruction techniques and/or automated exposure control to reduce radiation dose. COMPARISON:To previous study from 04/26/2017 IMPRESSION: Abdomen: 1. No parenchymal abnormality is noted in the lung bases. 2.The liver and the spleen are normal in appearance. 3.The gallbladder is distended but there is no evidence of biliary ductal dilatation. 4.The pancreas is atrophic. The adrenal glands are normal in appearance. There is no evidence of hydronephrosis involving either kidney. Pelvis: 1. Surgical clips related to a right colectomy are noted. 2.No bowel distention is appreciated. 3.There is no evidence pelvic mass, or fluid collection. Moderate feces is noted especially in the rectum. 4.No bony abnormalities appreciated. [id number] Procedure Note Interface, Radiology Results Incoming - 08/13/2018 3:49 PM CDT EXAMINATION: CT ABDOMEN PELVIS WO CONTRAST CLINICAL HISTORY: nausea vomiting diarrhea TECHNIQUE: Multiple axial images of the abdomen and pelvis were obtained without intravenous administration of iodinated contrast. Sagittal and coronal computerized reformatted images were also obtained. The lack of intravenous contrast reduces the sensitivity of detecting solid organ disease. CT imaging was performed with iterative reconstruction techniques and/or automated exposure control to reduce radiation dose. COMPARISON: To previous study from 04/26/2017 IMPRESSION: Abdomen: 1. No parenchymal abnormality is noted in the lung bases. 2. The liver and the spleen are normal in appearance. 3. The gallbladder is distended but there is no evidence of biliary ductal dilatation. 4. The pancreas is atrophic. The adrenal glands are normal in appearance. There is no evidence of hydronephrosis involving either kidney. Pelvis: 1. Surgical clips related to a right colectomy are noted. 2. No bowel distention is appreciated. 3. There is no evidence pelvic mass, or fluid collection. Moderate feces is noted especially in the rectum. 4. No bony abnormalities appreciated. [id number] Performing Organization Address City/State/Zipcode Phone Number [facility] [address] [place] [address] * CT Head Wo Contrast (08/13/2018 3:38 PM CDT) Specimen Narrative Performed At EXAMINATION:CT HEAD WO CONTRAST [facility] CT IMAGING WAS PERFORMED WITH ITERATIVE RECONSTRUCTION TECHNIQUE AND/OR AUTOMATED EXPOSURE CONTROL TO REDUCE RADIATION DOSE. CLINICAL HISTORY:fall COMPARISON:CT brain September 06, 2016. FINDINGS: 1. There is no acute intracranial abnormality. Specifically there is no intracranial hemorrhage, mass effect or acute infarction. 2.Small chronic infarct seen again noted involving the cortex and subcortical white matter in the superior right frontal lobe. There is chronic lacunar infarction in the posterior aspect of the lenticular nucleus on the left and also in the thalamus on the left. There are otherwise very mild nonspecific cerebral white matter microvascular changes. 3.There is mild to moderate cerebral cortical volume loss and cerebellar volume. 4.There is minimal basal ganglia calcification. Atherosclerotic calcifications noted in the distal internal carotid and vertebral arteries. 5.There is minimal mucosal thickening in the ethmoid and maxillary sinuses. There is minimal mucosal thickening or fluid in the mastoids. IMPRESSION: No acute abnormality and no change from the prior study. [id number] Procedure Note Interface, Radiology Results Incoming - 08/13/2018 3:53 PM CDT EXAMINATION: CT HEAD WO CONTRAST CT IMAGING WAS PERFORMED WITH ITERATIVE RECONSTRUCTION TECHNIQUE AND/OR AUTOMATED EXPOSURE CONTROL TO REDUCE RADIATION DOSE. CLINICAL HISTORY: fall COMPARISON: CT brain September 06, 2016. FINDINGS: 1. There is no acute intracranial abnormality. Specifically there is no intracranial hemorrhage, mass effect or acute infarction. 2. Small chronic infarct seen again noted involving the cortex and subcortical white matter in the superior right frontal lobe. There is chronic lacunar infarction in the posterior aspect of the lenticular nucleus on the left and also in the thalamus on the left. There are otherwise very mild nonspecific cerebral white matter microvascular changes. 3. There is mild to moderate cerebral cortical volume loss and cerebellar volume. 4. There is minimal basal ganglia calcification. Atherosclerotic calcifications noted in the distal internal carotid and vertebral arteries. 5. There is minimal mucosal thickening in the ethmoid and maxillary sinuses. There is minimal mucosal thickening or fluid in the mastoids. IMPRESSION: No acute abnormality and no change from the prior study. [id number] Performing Organization Address [facility] Phone Number [facility] [address] [place] [address] * Partial thromboplastin time, activated (08/13/2018 3:00 PM CDT) PTT 37.6 (H) 23.0 - 36.0 sec CARMINE Comment: DONNA BOWDEN PTT therapeutic range for [facility] unfractionated heparin is 61.0-112.0 seconds which corresponds to Anti-Xa 0.3-0.7 U/ml. Specimen Blood Performing Organization Address [facility] Phone Number [address] [place] AND [address] * Prothrombin time with INR (08/13/2018 3:00 PM CDT) Pathologist [facility] Prothrombin 16.3 (H) 11.5 - 14.[address] [facility] INR 1.4 CARMINE Comment: DONNA NESS The International Normalized [facility] Ratio (INR) is a therapeutic monitoring tool for patients who are stable on oral anticoagulant therapy. An INR of 2.0-3.0 is suggested for deep vein thrombosis/pulmonary embolism. Specimen Blood Performing Organization Address [facility] Phone Number [address] [place] [id number] PATHOLOGY AND [address] HOSPITAL * Lactic acid level (08/13/2018 3:00 PM CDT) Pathologist [facility] Lactic acid 0.7 0.5 - 2.2 mmol/L [facility] Specimen Plasma specimen Performing Organization Address City/State/Zipcode Phone Number [facility] [address] [place] [address] PATHOLOGY AND GENOMIC MEDICINE [facility] [address] [place] * Urinalysis screen and microscopy, with reflex to culture (03/04/2018 1:15 PM CDT) Pathologist [facility] Specimen site Clean catch [facility] DEPARTMENT OF PATHOLOGY AND GENOMIC MEDICINE Color, UA Yellow [facility] DEPARTMENT OF PATHOLOGY AND GENOMIC MEDICINE Appearance, UA Cloudy [facility] DEPARTMENT OF PATHOLOGY AND GENOMIC MEDICINE Specific 1.012 1.001 - 1.035 [facility] gravity, DEPARTMENT OF PATHOLOGY AND GENOMIC MEDICINE pH, UA 6.0 5.0 - 8.5 [facility] DEPARTMENT OF PATHOLOGY AND GENOMIC MEDICINE Protein, UA 2+ (A) Negative [facility] DEPARTMENT OF PATHOLOGY AND GENOMIC MEDICINE Glucose, UA 2+ (A) Negative [facility] DEPARTMENT OF PATHOLOGY AND GENOMIC MEDICINE Ketones, UA Negative Negative [facility] DEPARTMENT OF PATHOLOGY AND GENOMIC MEDICINE Bilirubin, UA Negative Negative [facility] DEPARTMENT OF PATHOLOGY AND GENOMIC MEDICINE Blood, UA Small (A) Negative [facility] DEPARTMENT OF PATHOLOGY AND GENOMIC MEDICINE Nitrite, UA Negative Negative [facility] DEPARTMENT OF PATHOLOGY AND GENOMIC MEDICINE Urobilinogen, Negative <2.0 [facility] DE[facility] OF [facility]OLOGY AND GENOMIC MEDICINE Leukocyte Large (A) Negative [facility] esterase, DEPARTMENT OF PATHOLOGY AND GENOMIC MEDICINE Epithelial Few /HPF [facility] cells, DEPARTMENT OF PATHOLOGY AND GENOMIC MEDICINE Round Many 0 - 1 /HPF [facility] epithelial DEPARTMENT OF cells, PATHOLOGY AND GENOMIC MEDICINE WBC, UA 61-80 (H) 0 - 4 /HPF [facility] DEPARTMENT OF PATHOLOGY AND GENOMIC MEDICINE RBC, UA 11-20 (H) 0 - 5 /HPF [facility] DEPARTMENT OF PATHOLOGY AND GENOMIC MEDICINE Bacteria, UA Trace None seen [facility] DEPARTMENT OF PATHOLOGY AND GENOMIC MEDICINE WBC clumps, UA Many (A) [facility] DEPARTMENT OF PATHOLOGY AND GENOMIC MEDICINE Yeast, UA None seen [facility] DEPARTMENT OF PATHOLOGY AND GENOMIC MEDICINE Yeast with None seen [facility] pseudohyphae, DEPARTMENT OF UA PATHOLOGY AND GENOMIC MEDICINE Specimen Urine Performing Organization Address City/State/Zipcode Phone Number [facility] [place] [address] [address] [place] [address] PATHOLOGY AND GENOMIC MEDICINE * Gram stain (03/04/2018 1:15 PM CDT) Gram stain Moderate WBC's [facility] DEPARTMENT result Few Gram negative rods OF PATHOLOGY Comment: AND GENOMIC Specimen Information MEDICINE Specimen Source: Urine Specimen Site: Clean catch Specimen Urine Performing Organization Address City/State/Zipcode Phone Number [facility] DEPARTMENT OF [address] [place] [address] PATHOLOGY AND GENOMIC MEDICINE * Urine culture (03/04/2018 1:15 PM CDT) Urine culture Escherichia coli [facility] DEPARTMENT isolate >10-5 cfu/ml OF PATHOLOGY (A) AND GENOMIC Comment: MEDICINE Specimen Information Specimen Source: Urine Specimen Site: Clean catch Urine culture Enterococcus faecalis [facility] DEPARTMENT isolate 10-4 cfu/ml OF PATHOLOGY The performance AND GENOMIC characteristics of this assay MEDICINE on this isolate were validated by the Microbiology Laboratory at [facility].This source has not been approved by the U.S. Food and Drug Administration.The results are not intended to be used as the sole means for clinical diagnosis or patient management.The Microbiology Laboratory is authorized under the clinical Laboratory Improvement Amendments of 1988 (CLIA-88) to perform high complexity testing. This organism is Vancomycin Sensitive. (A) Urine culture Mixed Gram positive zak [facility] DEPARTMENT isolate 10-1 cfu/ml OF PATHOLOGY (A) AND GENOMIC MEDICINE Specimen Urine Antibiotic Method Susceptibility Organism Ampicillin DVAEY <=2 mcg/mL: Susceptible Escherichia coli Amoxicillin/Clavulanate DAVEY 4/2 mcg/mL: Susceptible Escherichia coli Amikacin DAVEY <=4 mcg/mL: Susceptible Escherichia coli Aztreonam DAVEY <=1 mcg/mL: Susceptible Escherichia coli Ceftazidime DAVEY <=0.5 mcg/mL: Susceptible Escherichia coli Ciprofloxacin DAVEY <=0.5 mcg/mL: Susceptible Escherichia coli Ceftriaxone DAVEY <=0.5 mcg/mL: Susceptible Escherichia coli Cefuroxime Sodium DAVEY <=4 mcg/mL: Susceptible Escherichia coli Cefazolin DAVEY <=1 mcg/mL: Susceptible Escherichia coli Cefepime DAVEY <=0.5 mcg/mL: Susceptible Escherichia coli Nitrofurantoin DAVEY <=16 mcg/mL: Susceptible Escherichia coli Cefoxitin DAVEY <=4 mcg/mL: Susceptible Escherichia coli Gentamicin DAVEY 2 mcg/mL: Susceptible Escherichia coli Imipenem DAVEY <=0.25 mcg/mL: Susceptible Escherichia coli Levofloxacin DAVEY <=1 mcg/mL: Susceptible Escherichia coli Meropenem DAVEY <=0.125 mcg/mL: Susceptible Escherichia coli Tobramycin DAVEY 1 mcg/mL: Susceptible Escherichia coli Ampicillin/Sulbactam DAVEY 2/1 mcg/mL: Susceptible Escherichia coli Trimethoprim/Sulfamethoxazole DAVEY <=0.5/9.5 mcg/mL: Susceptible Escherichia coli Tetracycline DAVEY <=1 mcg/mL: Susceptible Escherichia coli Piperacillin/Tazobactam DAVEY <=2/4 mcg/mL: Susceptible Escherichia coli Ertapenem DAVEY <=0.125 mcg/mL: Susceptible Escherichia coli Tigecycline DAVEY <=0.5 mcg/mL: Susceptible Escherichia coli Ampicillin DAVEY 2 mcg/mL: Susceptible Enterococcus faecalis Nitrofurantoin DAVEY <=16 mcg/mL: Susceptible Enterococcus faecalis Levofloxacin DAVEY <=1 mcg/mL: Susceptible Enterococcus faecalis Linezolid DAVEY <=1 mcg/mL: Susceptible Enterococcus faecalis Minocycline DAVEY 8 mcg/mL: Resistant Enterococcus faecalis Tetracycline DAVEY >8 mcg/mL: Resistant Enterococcus faecalis Vancomycin DAVEY <=0.5 mcg/mL: Susceptible Enterococcus faecalis Performing Organization Address City/State/Zipcode Phone Number [facility] DEPARTMENT OF [address] [place] [address] PATHOLOGY AND GENOMIC MEDICINE * XR Shoulders Bilateral (02/27/2018 2:30 PM CDT) Specimen Narrative Performed At EXAMINATION:XR SHOULDERS BILATERAL [facility] CLINICAL HISTORY:M81.0 Age-related osteoporosis without current pathological fracture, M25.512 Pain in left shoulder, osteoporosis left shoulder pain COMPARISON:None. FINDINGS: The bones are osteopenic. There is narrowing of the AC joint and glenohumeral joint. There are no fractures or other acute findings visualized. IMPRESSION: Osteopenia with arthritic changes involving the AC joint and glenohumeral joint. [id number] Procedure Note Interface, Radiology Results Incoming - 02/27/2018 3:53 PM CDT EXAMINATION: XR SHOULDERS BILATERAL CLINICAL HISTORY: M81.0 Age-related osteoporosis without current pathological fracture, M25.512 Pain in left shoulder, osteoporosis left shoulder pain COMPARISON: None. FINDINGS: The bones are osteopenic. There is narrowing of the AC joint and glenohumeral joint. There are no fractures or other acute findings visualized. IMPRESSION: Osteopenia with arthritic changes involving the AC joint and glenohumeral joint. [facility]-[id number] Performing Organization Address City/State/Zipcode Phone Number [facility] [address] [place] [address] * Bone Density (02/27/2018 2:05 PM CDT) Specimen Narrative Performed At EXAMINATION:BONE DENSITY [facility] CLINICAL HISTORY:M81.0 Age-related osteoporosis without current pathological fracture, M25.512 Pain in left shoulder, osteoporosis left shoulder pain.Osteoporosis screening. COMPARISON:None. The results of this study expressed as bone mineral density (BMD) were as follows: AP spine (L1- L4) BMD:0.949g/cm2 T-Score: -0.9 Right Femur (Total Mean): BMD: 0.719g/cm2 T-Score: -1.8 Left Femur (Total Mean): BMD: 0.697g/cm2 T-Score: -2.0 Impression: Osteopenia bilateral femurs. Within normal range lumbar spine [facility]-[id number] A copy of this scans including a report detailing these results will follow. Note: The world health organization (WHO) has classified the patient's T-score as follows: Above (-1) as normal (-1) to (-2.5) as low (osteopenia) Below (-2.5) as abnormally low (osteoporosis, increased fracture risk) Procedure Note Interface, Radiology Results Incoming - 02/27/2018 2:23 PM CDT EXAMINATION: BONE DENSITY CLINICAL HISTORY: M81.0 Age-related osteoporosis without current pathological fracture, M25.512 Pain in left shoulder, osteoporosis left shoulder pain. Osteoporosis screening. COMPARISON: None. The results of this study expressed as bone mineral density (BMD) were as follows: AP spine (L1- L4) BMD: 0.949 g/cm2 T-Score: -0.9 Right Femur (Total Mean): BMD: 0.719 g/cm2 T-Score: -1.8 Left Femur (Total Mean): BMD: 0.697 g/cm2 T-Score: -2.0 Impression: Osteopenia bilateral femurs. Within normal range lumbar spine [facility]-[id number] A copy of this scans including a report detailing these results will follow. Note: The world health organization (WHO) has classified the patient's T-score as follows: Above (-1) as normal (-1) to (-2.5) as low (osteopenia) Below (-2.5) as abnormally low (osteoporosis, increased fracture risk) Performing Organization Address City/State/Zipcode Phone Number [facility] [address] [place] [address] after 12/24/2017 Insurance Type Payer Benefit Subscriber ID Effective Phone Address Plan / Dates Group Medicare MEDICARE MEDICARE xxxxxxxxxxx 2010- [place], PART A AND Present [place] Commercial AARP AARP xxxxxxxxxxx [id number] SUPPLEMENT resent Advance Directives Patient has advance care planning documents, and code status on file. For more i nformation, please contact: Tigre Mendoza [address] [place] [address] Date Inactivated Comments Code Status Date Activated 08/19/2018 9:03 PM Full Code 08/13/2018 6:36 PM Code Status decision reached by: Patient
--- OUTSIDE RECORDS SUMMARY | 2018-12-25 10:16 | XMS REPORT ---
Author Author Teri Garcia Organization [employer] Address Unknown Phone Unavailable Care Team Providers Care Retail Cosmetics Sales Beauty Advisor Name Role Phone Teri Garcia CP Unavailable Allergies, Adverse Reactions, Alerts Substance Reaction Event Type N.K.D.A. Info Not Available Non Drug Allergy Problems Problem Type Condition Code Onset Dates Condition Status Problem Other specified local infections of the skin and subcutaneous tissue L08.89 Active Assessment Type 1 diabetes mellitus with foot ulcer E10.621 Active Problem Methicillin susceptible Staphylococcus aureus infection as the cause of diseases classified elsewhere B95.61 Active Assessment Other specified local infections of the skin and subcutaneous tissue L08.89 Active Problem 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 Active Problem Low back pain M54.5 Active Problem Hypothyroidism, unspecified E03.9 Active Problem Other idiopathic peripheral autonomic neuropathy G90.09 Active Problem Cellulitis of right toe L03.031 Active Problem Noninfective gastroenteritis and colitis, unspecified K52.9 Active Problem Other Gram-negative sepsis A41.59 Active Problem Tinea unguium B35.1 Active Assessment Abrasion, unspecified great toe, initial encounter S90.413A Active Problem Infective myositis, unspecified toe(s) M60.078 Active Problem Essential (primary) hypertension I10 Active Problem Pain in unspecified foot M79.673 Active Problem Pressure ulcer of other site, unspecified stage L89.899 Active Problem Gangrene, not elsewhere classified I96 Active Problem Type 2 diabetes mellitus with diabetic neuropathy, unspecified E11.40 Active Problem Acute lymphangitis, unspecified L03.91 Active Problem Cellulitis, unspecified L03.90 Active Problem Pain in unspecified toe(s) M79.676 Active Problem Abrasion, unspecified great toe, initial encounter S90.413A Active Problem Abscess of bursa, right ankle and foot M71.071 Active Problem Type 2 diabetes mellitus with foot ulcer E11.621 Active Medications Medication Code System Code Instructions Start Date End Date Status Dosage Metoprolol Tartrate [facility] 71900938908 25 MG Orally Twice a day Active 1 tablet with food Amlodipine Besylate [facility] 48260761356 10 MG Orally Once a day Active 1 tablet Levothyroxine Sodium [facility] [address]-00 112 MCG Orally Once a day Active 1 capsule on an empty stomach in the morning Sucralfate [facility] [id number] 1 GM/10ML Orally Twice a day Active 10 ml ALPRAZolam ER [facility] 53360425556 0.5 MG Orally Once a day Active 1 tablet in the morning Vital Signs Date/Time: Dec 11, 2016 BMI 25.24 Index Weight 138 lbs Blood Pressure Systolic 126 mm Hg Respiratory Rate 16 /min Cardiac Monitoring Heart Rate 69 /min Temperature 99.2 F Blood Pressure Diastolic 80 mm Hg Results No Known Results Summary Purpose [employer] Submission
--- OUTSIDE RECORDS SUMMARY | 2018-12-25 10:16 | XMS REPORT ---
Author Author Teri Garcia Organization [employer] Address Unknown Phone Unavailable Care Team Providers Care Lapper Name Role Phone Teri Garcia CP Unavailable Allergies No Known Allergies Problems Problem Type Condition Code Onset Dates Condition Status Problem 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 Active Problem Abrasion, unspecified great toe, initial encounter S90.413A Active Problem Hypothyroidism, unspecified E03.9 Active Problem Methicillin susceptible Staphylococcus aureus infection as the cause of diseases classified elsewhere B95.61 Active Problem Essential (primary) hypertension I10 Active Problem Low back pain M54.5 Active Problem Infective myositis, unspecified toe(s) M60.078 Active Problem Pressure ulcer of other site, unspecified stage L89.899 Active Problem Pain in unspecified foot M79.673 Active Problem Cellulitis of right toe L03.031 Active Problem Chronic multifocal osteomyelitis, right ankle and foot M86.371 Active Problem Age-related osteoporosis without current pathological fracture M81.0 Active Problem Other idiopathic peripheral autonomic neuropathy G90.09 Active Problem Hyperlipidemia, unspecified E78.5 Active Problem Chronic kidney disease, stage 3 (moderate) N18.3 Active Problem Essential (primary) hypertension I10 Active Problem Atherosclerosis of [place] arteries of left leg with ulceration of other part of foot I70.245 Active Problem Hyperuricemia without signs of inflammatory arthritis and tophaceous disease E79.0 Active Problem Other acute osteomyelitis, right ankle and foot M86.171 Active Problem Chronic pain syndrome G89.4 Active Problem Pain in unspecified toe(s) M79.676 Active Problem Other acute osteomyelitis, left ankle and foot M86.172 Active Problem Tinea unguium B35.1 Active Problem Type 2 diabetes mellitus with foot ulcer E11.621 Active Problem Pain in left shoulder M25.512 Active Problem Other Gram-negative sepsis A41.59 Active Problem Pain in unspecified hip M25.559 Active Problem Noninfective gastroenteritis and colitis, unspecified K52.9 Active Problem Rheumatoid arthritis without rheumatoid factor, multiple sites M06.09 Active Problem 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 Active Problem Cellulitis, unspecified L03.90 Active Problem Chronic kidney disease, stage 4 (severe) N18.4 Active Problem Other specified local infections of the skin and subcutaneous tissue L08.89 Active Problem Primary osteoarthritis, 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 Active Problem Abscess of bursa, right ankle and foot M71.071 Active Problem Pressure ulcer of other site, stage 4 L89.894 Active Problem Acute lymphangitis, unspecified L03.91 Active Problem Peripheral vascular disease, unspecified I73.9 Active Problem Type 2 diabetes mellitus with diabetic neuropathy, unspecified E11.40 Active Problem Disruption of external operation (surgical) wound, not elsewhere classified, initial encounter T81.31XA Active Problem Gangrene, not elsewhere classified I96 Active Problem Disruption of external operation (surgical) wound, not elsewhere classified, subsequent encounter T81.31XD Active Problem Xerosis cutis L85.3 Active Problem Other pruritus L29.8 Active Medications No Known Medications Results No Known Results Summary Purpose [employer] Submission
--- OUTSIDE RECORDS SUMMARY | 2018-12-25 10:16 | XMS REPORT ---
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 Active Problem Abrasion, unspecified great toe, initial encounter S90.413A Active Problem Methicillin susceptible Staphylococcus aureus infection as the cause of diseases classified elsewhere B95.61 Active Problem Hypothyroidism, unspecified E03.9 Active Problem Essential (primary) hypertension I10 Active Problem Low back pain M54.5 Active Problem Infective myositis, unspecified toe(s) M60.078 Active Problem Disruption of external operation (surgical) wound, not elsewhere classified, initial encounter T81.31XA Active Problem Pressure ulcer of other site, unspecified stage L89.899 Active Problem Disruption of external operation (surgical) wound, not elsewhere classified, subsequent encounter T81.31XD Active Problem Pain in unspecified foot M79.673 Active Problem Chronic multifocal osteomyelitis, right ankle and foot M86.371 Active Problem Hyperlipidemia, unspecified E78.5 Active Problem Age-related osteoporosis without current pathological fracture M81.0 Active Problem Rheumatoid arthritis without rheumatoid factor, multiple sites M06.09 Active Problem 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 Active Problem Tinea unguium B35.1 Active Problem Other idiopathic peripheral autonomic neuropathy G90.09 Active Problem Other Gram-negative sepsis A41.59 Active Problem Hyperuricemia without signs of inflammatory arthritis and tophaceous disease E79.0 Active Problem Cellulitis of right toe L03.031 Active Problem Noninfective gastroenteritis and colitis, unspecified K52.9 Active Problem Chronic kidney disease, stage 3 (moderate) N18.3 Active Problem Essential (primary) hypertension I10 Active Problem Pain in left shoulder M25.512 Active Problem Pain in unspecified hip M25.559 Active Problem Abscess of bursa, right ankle and foot M71.071 Active Problem Pressure ulcer of other site, stage 4 L89.894 Active Problem Acute lymphangitis, unspecified L03.91 Active Problem Peripheral vascular disease, unspecified I73.9 Active Problem Type 2 diabetes mellitus with diabetic neuropathy, unspecified E11.40 Active Problem Chronic pain syndrome G89.4 Active Problem Gangrene, not elsewhere classified I96 Active Problem Other acute osteomyelitis, right ankle and foot M86.171 Active Problem Type 2 diabetes mellitus with foot ulcer E11.621 Active Problem Xerosis cutis L85.3 Active Problem Pain in unspecified toe(s) M79.676 Active Problem Other pruritus L29.8 Active Problem Chronic kidney disease, stage 4 (severe) N18.4 Active Problem Primary osteoarthritis, 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 Active Medications No Known Medications Results No Known Results Summary Purpose [employer] Submission
--- OUTSIDE RECORDS SUMMARY | 2018-12-25 10:16 | XMS REPORT ---
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 Active Assessment Low back pain M54.5 Active Problem Low back pain M54.5 Active Problem Other Gram-negative sepsis A41.59 Active Problem Essential (primary) hypertension I10 Active Problem Infective myositis, unspecified toe(s) M60.078 Active Problem Hypothyroidism, unspecified E03.9 Active Problem Other acute osteomyelitis, right ankle and foot M86.171 Active Problem Tinea unguium B35.1 Active Problem Pain in unspecified toe(s) M79.676 Active Problem Type 2 diabetes mellitus with foot ulcer E11.621 Active Problem Pressure ulcer of other site, stage 4 L89.894 Active Problem Noninfective gastroenteritis and colitis, unspecified K52.9 Active Problem Pain in unspecified foot M79.673 Active Problem Pressure ulcer of other site, unspecified stage L89.899 Active Problem Other idiopathic peripheral autonomic neuropathy G90.09 Active Problem Cellulitis of right toe L03.031 Active Problem Gangrene, not elsewhere classified I96 Active Problem Type 2 diabetes mellitus with diabetic neuropathy, unspecified E11.40 Active Problem Acute lymphangitis, unspecified L03.91 Active Problem Cellulitis, unspecified L03.90 Active Problem Other specified local infections of the skin and subcutaneous tissue L08.89 Active Problem Methicillin susceptible Staphylococcus aureus infection as the cause of diseases classified elsewhere B95.61 Active Problem Abscess of bursa, right ankle and foot M71.071 Active Problem Abrasion, unspecified great toe, initial encounter S90.413A Active Medications Medication Code System Code Instructions Start Date End Date Status Dosage Voltaren [facility] [id number] 1 % Transdermal four times a day (qid) prn Jan 03, 2017 Feb 04, 2017 Active 2 grams Results No Known Results Summary Purpose [employer] Submission
--- OUTSIDE RECORDS SUMMARY | 2018-12-25 10:16 | XMS REPORT ---
Author Author Gary Ulrich Organization [employer] Address Unknown Phone Unavailable Care Team Providers Care Medical Reception Specialist Name Role Phone Gary Ulrich CP Unavailable Allergies No Known Allergies Problems Problem Type Condition Code Onset Dates Condition Status Problem Gangrene, not elsewhere classified I96 Active Problem Cellulitis, unspecified L03.90 Active Problem Abscess of bursa, right ankle and foot M71.071 Active Problem Pain in unspecified toe(s) M79.676 Active Problem Abrasion, unspecified great toe, initial encounter S90.413A Active Problem Other specified local infections of the skin and subcutaneous tissue L08.89 Active Problem 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 Active Problem Methicillin susceptible Staphylococcus aureus infection as the cause of diseases classified elsewhere B95.61 Active Problem Hypothyroidism, unspecified E03.9 Active Problem Primary osteoarthritis, 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 Active Problem Essential (primary) hypertension I10 Active Problem Xerosis cutis L85.3 Active Problem Low back pain M54.5 Active Problem Other pruritus L29.8 Active Problem Disruption of external operation (surgical) wound, not elsewhere classified, subsequent encounter T81.31XD Active Problem Disruption of external operation (surgical) wound, not elsewhere classified, initial encounter T81.31XA Active Problem Hyperlipidemia, unspecified E78.5 Active Problem Age-related osteoporosis without current pathological fracture M81.0 Active Problem Pain in unspecified foot M79.673 Active Problem Pressure ulcer of other site, unspecified stage L89.899 Active Problem Essential (primary) hypertension I10 Active Problem Infective myositis, unspecified toe(s) M60.078 Active Problem Chronic kidney disease, stage 3 (moderate) N18.3 Active Problem Chronic multifocal osteomyelitis, right ankle and foot M86.371 Active Problem Pain in left shoulder M25.512 Active Problem Pain in unspecified hip M25.559 Active Problem Type 2 diabetes mellitus with diabetic neuropathy, unspecified E11.40 Active Problem Tinea unguium B35.1 Active Problem Acute lymphangitis, unspecified L03.91 Active Problem Chronic pain syndrome G89.4 Active Problem Other Gram-negative sepsis A41.59 Active Problem Cellulitis of right toe L03.031 Active Problem Type 2 diabetes mellitus with foot ulcer E11.621 Active Problem Other idiopathic peripheral autonomic neuropathy G90.09 Active Problem Peripheral vascular disease, unspecified I73.9 Active Problem Noninfective gastroenteritis and colitis, unspecified K52.9 Active Problem Chronic kidney disease, stage 4 (severe) N18.4 Active Problem Other acute osteomyelitis, right ankle and foot M86.171 Active Problem Pressure ulcer of other site, stage 4 L89.894 Active Medications No Known Medications Results No Known Results Summary Purpose [employer] Submission
--- OUTSIDE RECORDS SUMMARY | 2018-12-25 10:16 | XMS REPORT ---
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 Active Problem Low back pain M54.5 Active Problem Hypothyroidism, unspecified E03.9 Active Problem Other idiopathic peripheral autonomic neuropathy G90.09 Active Problem Noninfective gastroenteritis and colitis, unspecified K52.9 Active Problem Cellulitis of right toe L03.031 Active Problem Other Gram-negative sepsis A41.59 Active Problem Tinea unguium B35.1 Active Problem Infective myositis, unspecified toe(s) M60.078 [...] right ankle and foot M71.071 Active Problem Other specified local infections of the skin and subcutaneous tissue L08.89 Active Problem Type 2 diabetes mellitus with foot ulcer E11.621 Active Problem Methicillin susceptible Staphylococcus aureus infection as the cause of diseases classified elsewhere B95.61 Active Medications No Known Medications Results No Known Results Summary Purpose [employer] Submission
--- OUTSIDE RECORDS SUMMARY | 2018-12-25 10:16 | XMS REPORT | Continuity of Care Document ---
Author Author [employer] Address Unknown Phone Unavailable Care Team Providers Care Supervisor Heading Name Role Phone [employer] Unavailable Unavailable Problems Problem Status Onset Date Classification Date Reported Comments Source Essential hypertension Active Problem 11/19/2018 [facility] Infective myositis, unspecified toe Active Problem 11/19/2018 [facility] Hypothyroidism, unspecified Active Problem 11/19/2018 [facility] Other acute osteomyelitis, right ankle and foot Active Problem 11/19/2018 [facility] Pain in unspecified toe Active Problem 11/19/2018 [facility] Tinea unguium Active Problem 11/19/2018 [facility] Type 2 diabetes mellitus with foot ulcer Active Problem 11/19/2018 [facility] Noninfective gastroenteritis and colitis, unspecified Active Problem 11/19/2018 [facility] Pressure ulcer of other site, stage 4 Active Problem 11/19/2018 [facility] Pain in unspecified foot Active Problem 11/19/2018 [facility] Pressure ulcer of other site, unspecified stage Active Problem 11/19/2018 [facility] Other idiopathic peripheral autonomic neuropathy Active Problem 11/19/2018 [facility] Cellulitis of right toe Active Problem 11/19/2018 [facility] Gangrene, not elsewhere classified Active Problem 11/19/2018 [facility] Type 2 diabetes mellitus with diabetic neuropathy, unspecified Active Problem 11/19/2018 [facility] Acute lymphangitis, unspecified Active Problem 11/19/2018 [facility] Cellulitis, unspecified Active Problem 11/19/2018 [facility] Other specified local infections of the skin and subcutaneous tissue Active Problem 11/19/2018 [facility] Methicillin susceptible Staphylococcus aureus infection as the cause of diseases classified elsewhere Active Problem 11/19/2018 [facility] Abscess of bursa, right ankle and foot Active Problem 11/19/2018 [facility] Non-pressure chronic ulcer of other part of right foot with unspecified severity Active Problem 11/19/2018 [facility] Other Gram-negative sepsis Active Problem 11/19/2018 [facility] Abrasion, unspecified great toe, initial encounter Active Problem 11/19/2018 [facility] Low back pain Active Problem 11/19/2018 [facility] Disruption of external operation wound, not elsewhere classified, initial encounter Active Problem 11/19/2018 [facility] Disruption of external operation wound, not elsewhere classified, subsequent encounter Active Problem 11/19/2018 [facility] Chronic multifocal osteomyelitis, right ankle and foot Active Problem 11/19/2018 [facility] Hyperlipidemia, unspecified Active Problem 11/19/2018 [facility] Age-related osteoporosis without current pathological fracture Active Problem 11/19/2018 [facility] Rheumatoid arthritis without rheumatoid factor, multiple sites Active Problem 11/19/2018 [facility] Inflammatory polyarthropathy Active Problem 11/19/2018 [facility] Hyperuricemia without signs of inflammatory arthritis and tophaceous disease Active Problem 11/19/2018 [facility] Chronic kidney disease, stage 3 Active Problem 11/19/2018 [facility] Pain in left shoulder Active Problem 11/19/2018 [facility] Pain in unspecified hip Active Problem 11/19/2018 [facility] Peripheral vascular disease, unspecified Active Problem 11/19/2018 [facility] Chronic pain syndrome Active Problem 11/19/2018 [facility] Xerosis cutis Active Problem 11/19/2018 [facility] Other pruritus Active Problem 11/19/2018 [facility] Chronic kidney disease, stage 4 Active Problem 11/19/2018 [facility] Primary osteoarthritis, left shoulder Active Problem 11/19/2018 [facility] Type 1 diabetes mellitus with foot ulcer Active Diagnosis 05/12/2017 [facility] Pain in right toe Active Diagnosis 12/08/2017 [facility] Atherosclerosis of [place] arteries of left leg with ulceration of other part of foot Active Problem 11/19/2018 [facility] Other acute osteomyelitis, left ankle and foot Active Problem 11/19/2018 [facility] Non-pressure chronic ulcer of other part of left foot with necrosis of bone Active Problem 11/19/2018 [facility] Medications Medication Details Route Status Patient Instructions Ordering Provider Order Date Source Cefazolin in D5W as directed Intravenous Active 2 Grams- Solution Reconstituted Intravenous Q 24 hours Nseir 06/26/2017 [facility] Tramadol HCl 1 tablet as needed Orally Active 50 mg Orally daily Nseir 05/09/2017 [facility] Gabapentin 1 tablet Orally Active 100 MG Orally twice a day (bid) Nseir 04/15/2017 [facility] Gabapentin 1 capsule Orally Active 400 MG Orally Q 12 hours Gosia 04/11/2017 [facility] Voltaren 2 grams Transdermal Active 1 % [facility] four times a day [facility]id[facility] Cefazolin in D5W as directed Intravenous Active 2 GM/100ML Intravenous Q 24 hours starting 12/29/16 [facility] 12/28/2016 [facility] Tramadol one tab orally Active 50 mg orally every 4-6 hours prn pain [facility] 12/21/2016 [facility] Silvadene 1 application to affected area Externally Active 1 % Externally Once a day [facility] 12/11/2016 [facility] Metoprolol Tartrate 1 tablet with food Orally Active 25 MG Orally Twice a day [facility] ALPRAZolam ER 1 tablet in the morning Orally Active 0.5 MG Orally Once a day [facility] Sucralfate 10 ml Orally Active 1 GM/10ML Orally Twice a day [facility] Levothyroxine Sodium 1 capsule on an empty stomach in the morning Orally Active 112 MCG Orally Once a day [facility] Amlodipine Besylate 1 tablet Orally Active 10 MG Orally Once a day [facility] HydrOXYzine HCl 1 tablet as needed Orally Active 50 MG Orally daily [facility] Atorvastatin Calcium 1 tablet Orally Active 20 MG Orally daily [facility] Alendronate Sodium 1 tablet Orally Active 70 MG Orally weekly [facility] Mirtazapine 1 tablet Orally Active 15 MG Orally daily [facility] Levothyroxine Sodium 1 capsule on an empty stomach in the morning Orally Active 112 MCG Orally Once a day [facility] Allergies, Adverse Reactions, Alerts Substance Category Reaction Severity Reaction type Status Date Reported Comments Source N.K.D.A. Adverse Reaction Info Not Available Adverse Reaction Active 06/25/2017 [facility] Immunizations No Data Provided for This Section Results No Data Provided for This Section Pathology Reports No Data Provided for This Section Diagnostic Reports No Data Provided for This Section Consultation Notes No Data Provided for This Section Discharge Summaries No Data Provided for This Section History and Physicals No Data Provided for This Section Vital Signs Vital Sign Value Date Comments Source Weight 123 06/25/2017 [facility] Systolic (mm Hg) 120 06/25/2017 [facility] Respitory Rate 16 06/25/2017 [facility] Heart Rate 68 06/25/2017 [facility] Temperature Oral (F) 97.0 F 06/25/2017 [facility] Diastolic (mm Hg) 73 06/25/2017 [facility] Weight 135 01/15/2017 [facility] Systolic (mm Hg) 111 01/15/2017 [facility] Respitory Rate 16 01/15/2017 [facility] Heart Rate 63 01/15/2017 [facility] Temperature Oral (F) 97.5 F 01/15/2017 [facility] Diastolic (mm Hg) 68 01/15/2017 [facility] Weight 135 01/03/2017 [facility] Systolic (mm Hg) 120 01/03/2017 [facility] Respitory Rate 16 01/03/2017 [facility] Heart Rate 64 01/03/2017 [facility] Temperature Oral (F) 97.6 F 01/03/2017 [facility] Diastolic (mm Hg) 60 01/03/2017 [facility] Weight 144 12/25/2016 [facility] Systolic (mm Hg) 132 12/25/2016 [facility] Respitory Rate 16 12/25/2016 [facility] Heart Rate 74 12/25/2016 [facility] Temperature Oral (F) 98.8 F 12/25/2016 [facility] Diastolic (mm Hg) 66 12/25/2016 [facility] Weight 138 12/11/2016 [facility] Systolic (mm Hg) 126 12/11/2016 [facility] Respitory Rate 16 12/11/2016 [facility] Heart Rate 69 12/11/2016 [facility] Temperature Oral (F) 99.2 F 12/11/2016 [facility] Diastolic (mm Hg) 80 12/11/2016 [facility] Encounters No Data Provided for This Section Procedures No Data Provided for This Section Assessment and Plan No Data Provided for This Section Plan of Care No Data Provided for This Section Social History No Data Provided for This Section Family History No Data Provided for This Section Advance Directives No Data Provided for This Section Functional Status No Data Provided for This Section
--- OUTSIDE RECORDS SUMMARY | 2018-12-25 10:16 | XMS REPORT ---
Author Author Gary Ulrich Organization [employer] Address Unknown Phone Unavailable Care Team Providers Care Firmware Manager Name Role Phone Gary Ulrich CP Unavailable [...]
--- OUTSIDE RECORDS SUMMARY | 2018-12-25 10:16 | XMS REPORT ---
Author Author Teri Garcia Organization [employer] Address Unknown Phone Unavailable Care Team Providers Care Inside Sales Advertising Executive Name Role Phone Teri Garcia CP Unavailable [...]
--- OUTSIDE RECORDS SUMMARY | 2018-12-25 10:16 | XMS REPORT ---
Author Author Neema Elise Organization [employer] Address Unknown Phone Unavailable Care Team Providers Care Bottom Cementer Name Role Phone Neema Elise CP Unavailable Allergies No Known Allergies Problems Problem Type Condition Code Onset Dates Condition Status Problem Essential (primary) hypertension I10 Active Problem Infective myositis, unspecified toe(s) M60.078 Active Problem Hypothyroidism, unspecified E03.9 Active Problem Other acute osteomyelitis, right ankle and foot M86.171 Active Problem Pain in unspecified toe(s) M79.676 Active Problem Tinea unguium B35.1 Active Problem Type 2 diabetes mellitus with foot ulcer E11.621 Active Problem Noninfective gastroenteritis and colitis, unspecified K52.9 Active Problem Pressure ulcer of other site, stage 4 L89.894 Active Problem Pain in unspecified foot M79.673 [...] right ankle and foot M71.071 Active Problem 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
--- OUTSIDE RECORDS SUMMARY | 2018-12-25 10:16 | XMS REPORT ---
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 Active Problem Tinea unguium B35.1 Active Problem [...] skin and subcutaneous tissue L08.89 Active Assessment Methicillin susceptible Staphylococcus aureus infection as the cause of diseases classified elsewhere B95.61 Active Problem Type 2 diabetes mellitus with foot ulcer E11.621 Active Problem Methicillin susceptible Staphylococcus aureus infection as the cause of diseases classified elsewhere B95.61 Active Medications Medication Code System Code Instructions Start Date End Date Status Dosage Metoprolol Tartrate [facility] 27526346758 25 MG Orally Twice a day Active 1 tablet with food Tramadol [facility] 87198780843 50 mg orally every 4-6 hours prn pain Dec 21, 2016 Active one tab ALPRAZolam ER [facility] 73870710965 0.5 MG Orally Once a day Active 1 tablet in the morning Sucralfate [facility] 00970223159 1 GM/10ML Orally Twice a day Active 10 ml Levothyroxine Sodium [facility] [address]-73 112 MCG Orally Once a day Active 1 capsule on an empty stomach in the morning Silvadene [facility] 86200911753 1 % Externally Once a day Dec 11, 2016 Active 1 application to affected area Amlodipine Besylate [facility] 51170600394 10 MG Orally Once a day Active 1 tablet Vital Signs Date/Time: Dec 25, 2016 BMI 26.34 Index Weight 144 lbs Blood Pressure Systolic 132 mm Hg Respiratory Rate 16 /min Cardiac Monitoring Heart Rate 74 /min Temperature 98.8 F Blood Pressure Diastolic 66 mm Hg Results No Known Results Summary Purpose [employer] Submission
--- OUTSIDE RECORDS SUMMARY | 2018-12-25 10:16 | XMS REPORT ---
Author Author Teri Garcia Organization [employer] Address Unknown Phone Unavailable Care Team Providers Care Loom Changeover Operator Name Role Phone Teri Garcia CP Unavailable [...]
--- OUTSIDE RECORDS SUMMARY | 2018-12-25 10:16 | XMS REPORT ---
Author Author Neema Elise Organization [employer] Address Unknown Phone Unavailable Care Team Providers Care Chimney Supervisor Brick Name Role Phone Neema Elise CP Unavailable [...]
--- OUTSIDE RECORDS SUMMARY | 2018-12-25 10:16 | XMS REPORT ---
Author Author Gary Ulrich Organization [employer] Address Unknown Phone Unavailable Care Team Providers Care Intermediate School Teacher Name Role Phone Gary Ulrich CP Unavailable [...]
--- OUTSIDE RECORDS SUMMARY | 2018-12-25 10:16 | XMS REPORT ---
Author Author Gary Ulrich Organization [employer] Address Unknown Phone Unavailable Care Team Providers Care B Operator Name Role Phone Gary Ulrich CP Unavailable [...]
--- OUTSIDE RECORDS SUMMARY | 2018-12-25 10:16 | XMS REPORT ---
Author Author Teri Garcia Organization [employer] Address Unknown Phone Unavailable Care Team Providers Care Inspector Wire Rope Name Role Phone Teri Garcia CP Unavailable [...]
--- OUTSIDE RECORDS SUMMARY | 2018-12-25 10:17 | XMS REPORT ---
[facility] Address Unknown Phone Unavailable Care Team Providers Care Construction Accountant Name Role Phone MEET VALERO Unavailable Unavailable MEETA WHITE Unavailable Unavailable Problems This patient has no known problems. Allergies, Adverse Reactions, Alerts This patient has no known allergies or adverse reactions. Medications This patient has no known medications. Results Test Description Test Time Test Comments Text Results Atomic Results Result Comments MAMMOGRAPHY DIGITAL SCR BILAT 2018-06-27 13:40:00 [place] [address] Patient Name: CJ PALMA MR #: [id number] : 1945 Age/Sex: 73/F Req #: [id number] Adm Physician: Ordered by: MEET VALERO DO Report #: [id number] Location: MAMMO Room/Bed: Procedure: [id number] MG/MAMMOGRAPHY DIGITAL SCR BILAT Exam Date: 06/27/18 Exam Time: 1300 REPORT STATUS: Signed #[id number] - MGSCRBIL #BILATERAL DIGITAL SCREENING MAMMOGRAM WITH CAD: 06/27/2018 CLINICAL: Routine screening. Comparison is made to exams dated: 06/11/2017 mammogram and 05/09/2015 mammogram - [facility]. Current study contains 4 films. The tissue of both breasts is extremely dense, which lowers the sensitivity of mammography. Current study was also evaluated with a Computer Aided Detection (CAD) system. There are benign vascular calcifications and calcifications in both breasts. There also is a biopsy clip in the left breast. No significant masses, calcifications, or other findings are seen in either breast. There has been no significant interval change. IMPRESSION: BENIGN There is no mammographic evidence of malignancy. A 1 year screening mammogram is recommended. The patient will be notified by letter of the results. Tommie ruby/radha:07/11/2018 15:59:56 Ehs Specialist: Genoveva CERRATO([place]quita)([place]), [facility] letter sent: Compared to Prior B9 Mammogram BI-RADS: 2 Benign Dictated By: TOMMIE AGUIRRE DO 58 Transcribed By: RADHA on 07/11/181558 COPY TO: MEET VALERO DO BONE DXA DUAL ENERGY 2018-06-09 15:44:00 [place] [address] Patient Name: CJ PALMA MR #: [id number] : 1945 Age/Sex: 73/F Req #: [id number] Adm Physician: Ordered by: MEETA WHITE MD Report #: [id number] Location: DX Room/Bed: Procedure: [id number] DX/BONE DXA DUAL ENERGY Exam Date: Exam Time: REPORT STATUS: Signed EXAM: BONE MINERAL DENSITY HISTORY: Bone mineralization evaluation COMPARISON: None DISCUSSION: Evaluation of the left hip and lumbar spine was performed utilizing DEXA Hologic bone densitometer. The study is technically adequate. Left hip femoral neck bone mineral density: 0.61 g/cm2, T-score is -2.3, Z-score is -0.3. Left hip total bone mineral density: 0.62 g/cm2, T-score is -2.6, Z-score is -0.9. Bone mineralization increased by 0.4%. Lumbar spine total bone mineral density: 0.88 gm/cm2, T- score is -1.5, Z-score is 0.8. Bone mineralization decreased by 3.9%. Impression: Bone mineralization by WHO Classification is osteoporosis, the fracture risk is increased. Signed by: Dr. Amando Cornelius M.D. on 06/09/2018 3:46 PM Dictated By: AMNADO CORNELIUS MD 45 Transcribed By: JESSIE on 06/09/181545 COPY TO: MEETA WHITE MD MAMMOGRAPHY DIGITAL SCR BILAT [place] [address] Patient Name: CJ PALMA MR #: [id number] : 1945 Age/Sex: 72/F Req #: [id number] [facility] Physician: Ordered by: MEET VALERO DO Report #: [id number] Location: MAMMO Room/Bed: Procedure: [id number] MG/MAMMOGRAPHY DIGITAL SCR BILAT Exam Date: 06/11/17 Exam Time: 1426 REPORT STATUS: Signed #[id number] - MGSCRBIL #BILATERAL DIGITAL SCREENING MAMMOGRAM WITH CAD: 06/11/2017 CLINICAL: Routine screening. Comparison is made to exams dated: 05/04/2016 mammogram, 05/09/2015 mammogram and 04/23/2014 mammogram - [facility]. Current study contains 4 films. The tissue of both breasts is extremely dense, which lowers the sensitivity of mammography. Current study was also evaluated with a Computer Aided Detection (CAD) system. There are benign vascular calcifications and calcifications in both breasts. There also is a biopsy clip in the left breast. No significant masses, calcifications, or other findings are seen in either breast. There has been no significant interval change. IMPRESSION: BENIGN There is no mammographic evidence of malignancy. A 1 year screening mammogram is recommended. The patient will be notified by letter of the results. Tommie ruby/radha:06/24/2017 10:08:57 Ehs Specialist: Genoveva CAN)(M), [facility] letter sent: Compared to Prior B9 Mammogram BI-RADS: 2 Benign Dictated By: TOMMIE AGUIRRE DO 1008 Transcribed By: RADHA on 06/24/17 1008 COPY TO: MEET VALERO DO BONE DXA DUAL ENERGY [place] [address] Patient Name: CJ PALMA MR #: [id number] : 1945 Age/Sex: 72/F Req #: [id number] Adm Physician: Ordered by: MEET VALERO DO Report #: [id number] Location: DX Room/Bed: Procedure: [id number] DX/BONE DXA DUAL ENERGY Exam Date: Exam Time: REPORT STATUS: Signed EXAM: DXA BONE DENSITY INDICATIONS: OSTEOPOROSIS WITHOUT PATH FX COMPARISON: Bone mineral density study 04/23/2014. FINDINGS: Proximal left femur total bone mineral density (BMD) (g/cm2): 0.617 Femur T-score (standard deviation relative to young adult mean BMD): -2.6 Femur Z-score (standard deviation relative to age-matched control group): -1.0 Proximal left femur neck bone mineral density (BMD) (g/cm2): 0.615 Femur T-score (standard deviation relative to young adult mean BMD): -2.2 Femur Z-score (standard deviation relative to age-matched control group): -0.3 Lumbar bone mineral density (BMD) (g/cm2): 0.918 Lumbar T-score (standard deviation relative to young adult mean BMD): -1.2 Lumbar Z-score (standard deviation relative to age-matched control group): 1.1 Change since prior exam (%): Femur: -5.0. Spine: -0.3. Change since oldest prior exam (%): Femur: Not applicable. Spine: Not applicable. CONCLUSION: 1. Bone mineral density in the left femur is classified as osteoporosis. Fracture risk is high. 2. Bone mineral density in the spine is classified as osteopenia. Fracture risk is increased. World Health Organization Classification: *The Z-score is provided for informational purposes. The T-score is preferable for clinical decisions. When comparing exams, a change of >4% is considered statistically significant. SUGGESTED RECOMMENDATIONS: Normal T Osteopenia: Consideration should be given to use of calcium supplementation, daily multiple vitamins and adequate exercise, as preventive measures against osteoporosis, if clinically indicated. Osteoporosis T Severe Osteoporosis: In addition to the above, consideration should be given to medical therapy against osteoporosis, if clinically indicated. Dilia Sweeney M.D. Dictated by: Dilia Sweeney M.D. on 05/22/2017 at 11:48 Electronically approved by: Dilia Sweeney M.D. on 05/22/2017 at 11:48 Dictated By: DILIA SWEENEY MD 1148 Transcribed By: TORY on 05/22/17 1148 COPY TO: MEET VALERO DO
--- OUTSIDE RECORDS SUMMARY | 2018-12-25 10:17 | XMS REPORT ---
Author Author Teri Garcia Organization [employer] Address Unknown Phone Unavailable Care Team Providers Care Patient Relations Manager Name Role Phone Teri Garcia CP Unavailable Allergies, Adverse Reactions, Alerts Substance Reaction Event Type N.K.D.A. 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 Active Assessment Methicillin susceptible Staphylococcus aureus infection as the cause of diseases classified elsewhere B95.61 Active Problem Low back pain M54.5 Active Problem Other Gram-negative sepsis A41.59 Active Problem Essential (primary) hypertension I10 Active Problem Noninfective gastroenteritis and colitis, unspecified K52.9 Active Problem Hypothyroidism, unspecified E03.9 Active Problem Pressure ulcer of other site, unspecified stage L89.899 Active Problem Infective myositis, unspecified toe(s) M60.078 Active Problem Other acute osteomyelitis, right ankle and foot M86.171 Active Problem Chronic pain syndrome G89.4 Active Problem Acute lymphangitis, unspecified L03.91 Active Problem Pain in unspecified toe(s) M79.676 Active Problem Pressure ulcer of other site, stage 4 L89.894 Active Problem Type 2 diabetes mellitus with foot ulcer E11.621 Active Problem Cellulitis of right toe L03.031 Active Problem Pain in unspecified foot M79.673 Active Problem Tinea unguium B35.1 Active Problem Other idiopathic peripheral autonomic neuropathy G90.09 Active Problem Type 2 diabetes mellitus with diabetic neuropathy, unspecified E11.40 Active Problem Abscess of bursa, right ankle and foot M71.071 Active Problem Cellulitis, unspecified L03.90 Active Problem Gangrene, not elsewhere classified I96 Active Problem Methicillin susceptible Staphylococcus aureus infection as the cause of diseases classified elsewhere B95.61 Active Problem 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 Active Problem Abrasion, unspecified great toe, initial encounter S90.413A Active Problem Other specified local infections of the skin and subcutaneous tissue L08.89 Active Medications Medication Code System Code Instructions Start Date End Date Status Dosage HydrOXYzine HCl [facility] 81047709117 50 MG Orally daily Active 1 tablet as needed ALPRAZolam ER [facility] 26428392281 0.5 MG Orally Once a day Active 1 tablet in the morning Amlodipine Besylate [facility] 21046822354 10 MG Orally Once a day Active 1 tablet Atorvastatin Calcium [facility] 81275295608 20 MG Orally daily Active 1 tablet Sucralfate [facility] 38446158964 1 GM/10ML Orally Twice a day Active 10 ml Alendronate Sodium [facility] 22029261985 70 MG Orally weekly Active 1 tablet Levothyroxine Sodium [facility] [address]-38 112 MCG Orally Once a day Active 1 capsule on an empty stomach in the morning Voltaren [facility] 94489435646 1 % Transdermal four times a day (qid) prn Jan 03, 2017 Feb 04, 2017 Active 2 grams Metoprolol Tartrate [facility] 36236046838 25 MG Orally Twice a day Active 1 tablet with food Mirtazapine [facility] 08513662691 15 MG Orally daily Active 1 tablet Vital Signs Date/Time: Jan 15, 2017 BMI 24.69 Index Weight 135 lbs Blood Pressure Systolic 111 mm Hg Respiratory Rate 16 /min Cardiac Monitoring Heart Rate 63 /min Temperature 97.5 F Blood Pressure Diastolic 68 mm Hg Results No Known Results Summary Purpose [employer] Submission
--- OUTSIDE RECORDS SUMMARY | 2018-12-25 10:17 | XMS REPORT ---
Author Author Prem Hart [employer] Address Unknown Phone Unavailable Care Team Providers Care Powerhouse Electrician Name Role Phone Prem Hart CP Unavailable [...]
--- OUTSIDE RECORDS SUMMARY | 2018-12-25 10:17 | XMS REPORT ---
Author Author Teri Garcia Organization [employer] Address Unknown Phone Unavailable Care Team Providers Care Mounted Police Name Role Phone Teri Garcia CP Unavailable Allergies No Known Allergies Problems Problem Type Condition Code Onset Dates Condition Status Problem Low back pain M54.5 Active Problem [...] skin and subcutaneous tissue L08.89 Active Medications No Known Medications Results No Known Results Summary Purpose [employer] Submission
--- OUTSIDE RECORDS SUMMARY | 2018-12-25 10:17 | XMS REPORT ---
Author Author Gary Ulrich Organization [employer] Address Unknown Phone Unavailable Care Team Providers Care Acquisitions Librarian Name Role Phone Gary Ulrich CP Unavailable Allergies No Known Allergies Problems Problem Type Condition Code Onset Dates Condition Status Problem Other Gram-negative sepsis A41.59 Active Problem Noninfective gastroenteritis and colitis, unspecified K52.9 Active Problem Type 2 diabetes mellitus with diabetic neuropathy, unspecified E11.40 Active Problem Infective myositis, unspecified toe(s) M60.078 Active Problem Gangrene, not elsewhere classified I96 Active Problem Pressure ulcer of other site, unspecified stage L89.899 Active Problem Acute lymphangitis, unspecified L03.91 Active Problem Pain in unspecified foot M79.673 Active Problem Other idiopathic peripheral autonomic neuropathy G90.09 Active Problem Cellulitis of right toe L03.031 Active Problem Chronic kidney disease, stage 4 (severe) N18.4 Active Problem Peripheral vascular disease, unspecified I73.9 Active Problem Type 2 diabetes mellitus with foot ulcer E11.621 Active Problem Abscess of bursa, right ankle and foot M71.071 Active Problem Primary osteoarthritis, 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 Active Problem Cellulitis, unspecified L03.90 Active Problem Chronic pain syndrome G89.4 Active Problem Tinea unguium B35.1 Active Problem Pressure ulcer of other site, stage 4 L89.894 Active Problem Other acute osteomyelitis, right ankle and foot M86.171 Active Problem Other specified local infections of the skin and subcutaneous tissue L08.89 Active Problem 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
--- OUTSIDE RECORDS SUMMARY | 2018-12-25 10:17 | XMS REPORT ---
Author Author Gary Ulrich Organization [employer] Address Unknown Phone Unavailable Care Team Providers Care Tractor Mechanic Name Role Phone Gary Ulrich CP Unavailable [...]
--- OUTSIDE RECORDS SUMMARY | 2018-12-25 10:17 | XMS REPORT ---
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 Active Problem Essential (primary) hypertension I10 Active Problem Hypothyroidism, unspecified E03.9 Active Problem Low back pain M54.5 Active Problem Infective myositis, unspecified toe(s) M60.078 Active Problem Pressure ulcer of other site, unspecified stage L89.899 Active Problem Pain in unspecified foot M79.673 Active Problem Cellulitis of right toe L03.031 Active Problem Other idiopathic peripheral autonomic neuropathy G90.09 Active Problem Age-related osteoporosis without current pathological fracture M81.0 Active Problem Hyperlipidemia, unspecified E78.5 Active Problem Tinea unguium B35.1 Active Problem Essential (primary) hypertension I10 Active Problem Pain in unspecified hip M25.559 Active Problem Chronic kidney disease, stage 3 (moderate) N18.3 Active Problem Other acute osteomyelitis, left ankle and foot M86.172 Active Problem 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 with ulceration of other part of foot I70.245 Active Problem Pressure ulcer of other site, stage 4 L89.894 Active Problem Other acute osteomyelitis, right ankle and foot M86.171 Active Problem Type 2 diabetes mellitus with diabetic neuropathy, unspecified E11.40 Active Problem 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 Active Problem Chronic pain syndrome G89.4 Active Problem Pain in unspecified toe(s) M79.676 Active Problem 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 Active Problem Type 2 diabetes mellitus with foot ulcer E11.621 Active Problem Pain in left shoulder M25.512 Active Problem Other Gram-negative sepsis A41.59 Active Problem Hyperuricemia without signs of inflammatory arthritis and tophaceous disease E79.0 Active Problem Noninfective gastroenteritis and colitis, unspecified K52.9 Active Problem Rheumatoid arthritis without rheumatoid factor, multiple sites M06.09 Active Problem Other specified local infections of the skin and subcutaneous tissue L08.89 Active Problem Primary osteoarthritis, 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 Active Problem Abrasion, unspecified great toe, initial encounter S90.413A Active Problem Xerosis cutis L85.3 Active Problem Acute lymphangitis, unspecified L03.91 Active Problem Peripheral vascular disease, unspecified I73.9 Active Problem Cellulitis, unspecified L03.90 Active Problem Chronic kidney disease, stage 4 (severe) N18.4 Active Problem Gangrene, not elsewhere classified I96 Active Problem Disruption of external operation (surgical) wound, not elsewhere classified, subsequent encounter T81.31XD Active Problem Abscess of bursa, right ankle and foot M71.071 Active Problem Chronic multifocal osteomyelitis, right ankle and foot M86.371 Active Problem Other pruritus L29.8 Active Problem Disruption of external operation (surgical) wound, not elsewhere classified, initial encounter T81.31XA Active Medications No Known Medications Results No Known Results Summary Purpose [employer]ClinicalWorks Submission
--- OUTSIDE RECORDS SUMMARY | 2018-12-25 10:17 | XMS REPORT ---
Author Author Gary Ulrich Organization [employer] Address Unknown Phone Unavailable Care Team Providers Care State Director Name Role Phone Gary Ulrich CP Unavailable [...]
--- OUTSIDE RECORDS SUMMARY | 2018-12-25 10:17 | XMS REPORT ---
Author Author Teri Garcia Organization [employer] Address Unknown Phone Unavailable Care Team Providers Care Rice Cleaning Machine Tender Name Role Phone Teri Garcia CP Unavailable [...] Instructions Start Date End Date Status Dosage Cefazolin in D5W [facility] 83124232473 2 GM/100ML Intravenous Q 24 hours starting 12/29/16 Dec 28, 2016 Jan 18, 2017 Active as directed Results No Known Results Summary Purpose [employer]ClinicalWorks Submission
--- OUTSIDE RECORDS SUMMARY | 2018-12-25 10:17 | XMS REPORT ---
Author Author Teri Garcia Organization [employer] Address Unknown Phone Unavailable Care Team Providers Care Sugar Refinery Supervisor Name Role Phone Teri Garcia CP Unavailable [...]
--- OUTSIDE RECORDS SUMMARY | 2018-12-25 10:17 | XMS REPORT ---
Author Author Neema Elise Organization [employer] Address Unknown Phone Unavailable Care Team Providers Care Subway Operator Name Role Phone Neema Elise CP Unavailable Allergies No Known Allergies Problems Problem Type Condition Code Onset Dates Condition Status Assessment Pain in right toe(s) M79.674 Active Problem Noninfective gastroenteritis and colitis, unspecified K52.9 Active Problem Other Gram-negative sepsis A41.59 Active Problem Type 2 diabetes mellitus with diabetic neuropathy, unspecified E11.40 Active Problem Gangrene, not elsewhere classified I96 Active Problem Acute lymphangitis, unspecified L03.91 Active Problem Cellulitis, unspecified L03.90 Active Problem Abscess of bursa, right ankle and foot M71.071 Active Problem Other idiopathic peripheral autonomic neuropathy G90.09 Active Problem Type 2 diabetes mellitus with foot ulcer E11.621 Active Problem Tinea unguium B35.1 Active Problem Pain in unspecified toe(s) M79.676 Active Problem Chronic pain syndrome G89.4 Active Problem Pressure ulcer of other site, stage 4 L89.894 Active Problem Other acute osteomyelitis, right ankle and foot M86.171 Active Problem Disruption of external operation (surgical) wound, not elsewhere classified, initial encounter T81.31XA Active Problem Other pruritus L29.8 Active Problem 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 Active Problem Other specified local infections of the skin and subcutaneous tissue L08.89 Active Problem Disruption of external operation (surgical) wound, not elsewhere classified, subsequent encounter T81.31XD Active Problem Abrasion, unspecified great toe, initial encounter S90.413A Active Problem Chronic kidney disease, stage 4 (severe) N18.4 Active Problem Peripheral vascular disease, unspecified I73.9 Active Problem Xerosis cutis L85.3 Active Problem Primary osteoarthritis, 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 Active Problem Low back pain M54.5 Active Problem Hypothyroidism, unspecified E03.9 Active Problem Methicillin susceptible Staphylococcus aureus infection as the cause of diseases classified elsewhere B95.61 Active Problem Essential (primary) hypertension I10 Active Problem Pain in unspecified foot M79.673 Active Problem Cellulitis of right toe L03.031 Active Problem Infective myositis, unspecified toe(s) M60.078 Active Problem Pressure ulcer of other site, unspecified stage L89.899 Active Medications Medication Code System Code Instructions Start Date End Date Status Dosage Gabapentin [facility] 98362786346 100 MG Orally twice a day (bid) Apr 15, 2017 Active [address] [facility] 55584001573 400 MG Orally Q 12 hours Apr 11, 2017 Inactive 1 capsule Results No Known Results Summary Purpose [employer]ClinicalWorks Submission
--- OUTSIDE RECORDS SUMMARY | 2018-12-25 10:17 | XMS REPORT ---
Author Author Teri Garcia Organization [employer] Address Unknown Phone Unavailable Care Team Providers Care Metal Refiner Name Role Phone Teri Garcia CP Unavailable [...] of other site, unspecified stage L89.899 Active Assessment Other acute osteomyelitis, right ankle and foot M86.171 Active Problem Essential (primary) hypertension I10 Active Problem Infective myositis, unspecified toe(s) M60.078 Active Assessment Chronic kidney disease, stage 4 (severe) N18.4 Active Problem Chronic kidney disease, stage 3 (moderate) N18.3 Active Assessment Peripheral vascular disease, unspecified I73.9 Active Problem Chronic multifocal osteomyelitis, right ankle [...] other site, stage 4 L89.894 Active Medications Medication Code System Code Instructions Start Date End Date Status Dosage Mirtazapine [facility] 66729800413 15 MG Orally daily Active 1 tablet Alendronate Sodium [facility] 29660977885 70 MG Orally weekly Active 1 tablet Levothyroxine Sodium [facility] [address]-50 112 MCG Orally Once a day Active 1 capsule on an empty stomach in the morning ALPRAZolam ER [facility] 07312424398 0.5 MG Orally Once a day Active 1 tablet in the morning Atorvastatin Calcium [facility] 36035740202 20 MG Orally daily Active 1 tablet Sucralfate [facility] 58945135430 1 GM/10ML Orally Twice a day Active 10 ml Gabapentin [facility] 24071006531 100 MG Orally twice a day (bid) Apr 15, 2017 Active 1 tablet Tramadol HCl [facility] 76411210773 50 mg Orally daily May 09, 2017 July 11, 2017 Active 1 tablet as needed Amlodipine Besylate [facility] 58150984956 10 MG Orally Once a day Active 1 tablet HydrOXYzine HCl [facility] 28791319562 50 MG Orally daily Active 1 tablet as needed Metoprolol Tartrate [facility] 66373922199 25 MG Orally Twice a day Active 1 tablet with food Vital Signs Date/Time: Jun 25, 2017 BMI 22.49 Index Weight 123 lbs Blood Pressure Systolic 120 mm Hg Respiratory Rate 16 /min Cardiac Monitoring Heart Rate 68 /min Temperature 97.0 F Blood Pressure Diastolic 73 mm Hg Results No Known Results Summary Purpose eClinicalWorks Submission
--- OUTSIDE RECORDS SUMMARY | 2018-12-25 10:17 | XMS REPORT ---
Author Author Teri Garcia Organization [employer] Address Unknown Phone Unavailable Care Team Providers Care Property Insurance Inspector Name Role Phone Teri Garcia CP Unavailable [...] and foot M86.172 Active Problem Atherosclerosis of [place] arteries of left leg with ulceration of [...]
--- OUTSIDE RECORDS SUMMARY | 2018-12-25 10:17 | XMS REPORT ---
Author Author Prem Hart Organization [employer] Address Unknown Phone Unavailable Care Team Providers Care Securities Attorney Name Role Phone Prem Hart CP Unavailable Allergies, Adverse Reactions, Alerts Substance Reaction Event Type N.K.D.A. Info Not Available Non Drug Allergy Problems Problem Type Condition Code Onset Dates Condition Status Assessment Essential (primary) hypertension I10 Active Assessment Hypothyroidism, unspecified E03.9 Active Assessment Type 2 diabetes mellitus with foot ulcer E11.621 Active Problem Non-pressure chronic ulcer of other [...] Instructions Start Date End Date Status Dosage Atorvastatin Calcium [facility] 57364512013 20 MG Orally daily Active 1 tablet Voltaren [facility] 46285071602 1 % Transdermal four times a day (qid) Jan 03, 2017 Feb 03, 2017 Active as directed Alendronate Sodium [facility] 19506008491 70 MG Orally weekly Active 1 tablet Mirtazapine [facility] 38805376891 15 MG Orally daily Active 1 tablet Amlodipine Besylate [facility] 53522404958 10 MG Orally Once a day Active 1 tablet Levothyroxine Sodium [facility] [address]-04 112 MCG Orally Once a day Active 1 capsule on an empty stomach in the morning Sucralfate [facility] 28523552844 1 GM/10ML Orally Twice a day Active 10 ml Metoprolol Tartrate [facility] 01316611224 25 MG Orally Twice a day Active 1 tablet with food HydrOXYzine HCl [facility] 22201105758 50 MG Orally daily Active 1 tablet as needed ALPRAZolam ER [facility] 67549318508 0.5 MG Orally Once a day Active 1 tablet in the morning Vital Signs Date/Time: Jan 03, 2017 BMI 24.69 Index Weight 135 lbs Blood Pressure Systolic 120 mm Hg Respiratory Rate 16 /min Cardiac Monitoring Heart Rate 64 /min Temperature 97.6 F Blood Pressure Diastolic 60 mm Hg Results No Known Results Summary Purpose eClinicalWorks Submission
--- OUTSIDE RECORDS SUMMARY | 2018-12-25 10:17 | XMS REPORT ---
Author Author Teri Garcia Organization [employer] Address Unknown Phone Unavailable Care Team Providers Care Nascar Racer Name Role Phone Teri Garcia CP Unavailable [...] Primary osteoarthritis, 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 Active Medications Medication Code System Code Instructions Start Date End Date Status Dosage Cefazolin in D5W [facility] 0 2 Grams- Solution Reconstituted Intravenous Q 24 hours Jun 26, 2017 August 07, 2017 Active as directed Results No Known Results Summary Purpose eClinicalWorks Submission
[2018-12-25 12:50] VITALS: BP 130/42
--- NOTE | 2018-12-25 17:48 | Operative Report ---
DATE OF PROCEDURE: 12/25/2018 SURGEON: Sy Dorman MD PROCEDURES: EGD with esophageal dilatation and biopsies and colonoscopy. INDICATIONS FOR EGD: Dysphagia, upper abdominal pain. INDICATIONS FOR COLONOSCOPY: Surveillance colonoscopy, personal history of colon polyps. MEDICATIONS: The patient was done under MAC, please see anesthesiologist's note. PROCEDURE IN DETAIL: With the patient in the left lateral decubitus position, a flexible fiberoptic Olympus gastroscope was introduced into the esophagus under direct visualization without any difficulty. A grade 1 to 2 esophageal varices were noted in the esophagus without active bleeding or stigmata of recent hemorrhage. Esophagus was dilated to size 52-[place]. The scope was then advanced with ease into the stomach, mucosa overlying the antrum and the body revealed some patchy erythema, low-grade edema and biopsies were obtained and sent to stain for H. pylori. Pylorus was of normal contour and shape, was intubated with ease and the scope was advanced all the way to the second portion of the duodenum. The scope was then withdrawn slowly, mucosa overlying the proximal and second portion and duodenal bulb appeared to be within normal limits. The scope was then withdrawn back into the stomach and retroflexed, mucosa overlying the fundus and the cardia appeared to be within normal limits. The scope was then straightened out, it was subsequently withdrawn, and the patient tolerated the procedure well. IMPRESSION: 1. Grade 1 to 2 esophageal varices without active bleeding or stigmata of recent hemorrhage. 2. Esophagus dilated to size 52-[place]. 3. Gastritis, biopsied, biopsies sent to stain for Helicobacter pylori. PLAN: Follow up histology. Increase Protonix to 40 mg one p.o. before meals b.i.d. Continue Carafate 1 g p.o. before meals t.i.d. and at bedtime. Check ultrasound of liver. Check acute hepatitis panel. The patient was then turned around and after adequate lubrication of the anal canal, a flexible fiberoptic Olympus colonoscope was advanced. It was inserted into the rectum and advanced all the way to approximately 80 cm from the anal verge. It was not advanced any further due to the presence of large amount of retained fecal material. The scope was then withdrawn slowly whatever was visualized the mucosa overlying the descending, sigmoid, and rectum grossly appeared to be within normal limits. The scope was then retroflexed into the distal rectum and small internal hemorrhoids were noted, none of which was actively bleeding. The scope was then straightened out, it was subsequently withdrawn, and the patient tolerated the procedure well. IMPRESSION: 1. Colonoscopy to approximately 80 cm from the anal verge, could not advance any further secondary to presence of large amount of retained fecal material. 2. Internal hemorrhoids, none actively bleeding. PLAN: The patient will need a repeat colonoscopy after a better prep. Sy Dorman MD [facility] /[id number] cc: Osmin Marte DO
== END | disposition home or self-care (01) ==
LOC: OR 10:12
PROVIDERS: ATTEND Internal Medicine Gastroenterology
DX: K29.70 Gastritis, unspecified, without bleeding (principal); I85.00 Esophageal varices without bleeding; K20.8 Other esophagitis; K59.00 Constipation, unspecified; K64.8 Other hemorrhoids; E03.9 Hypothyroidism, unspecified; E11.9 Type 2 diabetes mellitus without complications; I25.10 Atherosclerotic heart disease of native coronary artery without angina pectoris; I10 Essential (primary) hypertension; R00.1 Bradycardia, unspecified; F17.210 Nicotine dependence, cigarettes, uncomplicated; Z88.0 Allergy status to penicillin; Z01.810 Encounter for preprocedural cardiovascular examination; Z01.812 Encounter for preprocedural laboratory examination; Z79.84 Long term (current) use of oral hypoglycemic drugs; Z86.73 Personal history of transient ischemic attack (TIA), and cerebral infarction without residual deficits
CPT/HCPCS: 36415 ×2; 43239; 43450; 45378; 80053; 82948; 85025; 85610; 85730; 88305; 88312; 93005; J0461; J2250; J2704; J3010

== ENCOUNTER → 2019-01-23 | Outpatient (CLI) | payer MEDICARE ==
[~2019-01-23] MED LIST changes: -ATROPINE SULFATE 1 MG/ML VIAL ONE; -FENTANYL CITRATE/PF 100MCG/2 ML INJ ONE; -HYOSCYAMINE 0.125 MG TAB ONE; -MIDAZOLAM HCL 2 MG/2 ML VIAL ONE; -PROPOFOL IV EMULSION 10 MG/ML 50 ML VIAL ONE
--- NOTE | 2019-01-23 13:06 | Diagnostic Imaging Report ---
Right upper quadrant abdominal ultrasound Clinical History: Possible cirrhosis Discussion: Sonographic evaluation of the right upper quadrant of the abdomen is performed. The liver has normal size and measures 11.8 cm in length. The liver echotexture is normal, without focal mass. There is no intra or extrahepatic biliary dilatation. The common bile duct measures 4 mm. A 6 mm echogenic nonshadowing structure is noted near the fundus. This is not mobile and may represent a gallbladder polyp. There is no evidence of gallbladder wall thickening, pericholecystic fluid, or sonographic Rivera's sign. The main portal vein diameter is normal, measuring 8 mm. The pancreatic head, body, and proximal tail demonstrate no abnormality. There is no ascites. The right kidney measures 9.4 cm in length and is normal in size. There is no hydronephrosis, or shadowing renal calculus. In the upper pole right kidney, a 7 x 6 x 8 mm hyperechoic lesion is noted which may represent an angiomyolipoma. Segments of the inferior vena cava and aorta visualized demonstrate no abnormality. Impression: 1. No definite ultrasound evidence of liver cirrhosis. 2. There is a 6 mm gallbladder polyp. 3. There is a hyperechoic solid lesion in the right kidney measuring up to 8 mm which may represent an angiomyolipoma. Signed by: Dr. Glenn Castellanos MD on 01/23/2019 1:03 PM
== END ==
LOC: US 10:49
PROVIDERS: ATTEND Internal Medicine Gastroenterology
DX: N28.9 Disorder of kidney and ureter, unspecified (principal); K82.4 Cholesterolosis of gallbladder
CPT/HCPCS: 76705

== ENCOUNTER 2019-02-06 14:07 | Inpatient (IN) | payer MEDICARE ==
[~2019-02-06] VITALS: Ht 157.5 cm; Wt 54.4 kg
--- OUTSIDE RECORDS SUMMARY | 2019-02-06 14:11 | XMS REPORT | Clinical Summary ---
Author Author Tigre Yazidi Organization [facility] Address Unknown Phone Unavailable Care Team Providers Care Leaf Conditioner Helper Name Role Phone RosannaOsmin DO PCP Allergies Comments Active Allergy Reactions [...] as needed for mild pain. 08/13/2018 Discontinued (Med List Cleanup) lisinopril-hydrochlorothi 0 azide 7 (PRINZIDE,ZESTORETIC) 20-25 mg per tablet 08/13/2018 Discontinued (Med List Cleanup) pantoprazole (PROTONIX) Take 40 mg by 0 40 MG EC tablet mouth daily. 7 08/19/2018 Discontinued (Reorder) sucralfate (CARAFATE) 1 Take 1 g by 0 gram tablet mouth 2 (two) times a day. 08/13/2018 Discontinued (Med List Cleanup) estradiol (ESTRACE) 0.5 Take 0.5 mg 0 [...] for up to 30 days. 08/19/2018 Discontinued (Stop Taking at Discharge) omeprazole (PriLOSEC) 20 Take 20 mg by 0 MG capsule mouth daily. 08/19/2018 Discontinued (Stop Taking at Discharge) ibuprofen (ADVIL,MOTRIN) Take 200 mg 0 200 [...] type; Diarrhea, unspecified type; Gastroenteritis, acute 08/13/2018 [facility] General Internal Medicine - Encounter 08/19/2018 Saurabh [...] unspecified chronicity 02/21/2018 Transcribe Access Orders after 02/05/2018 Family History Medical History Relation Name Comments Diabetes Brother Hypertension Brother Stroke Father Diabetes Mother Diabetes Sister Hypertension Sister Relation Name Status Comments Brother Father Mother Sister Social History Date Tobacco Use Types Packs/Day Years Used Current Every Day Smoker 1 Smokeless Tobacco: Never Used Tobacco Cessation: Counseling Given: Yes Comments: will try Drinks/Week oz/Week Comments Alcohol Use No Sex Assigned at Date Recorded Not on file Industry Job Start Date Occupation Not on file Not on file Not on file Travel End Travel History Travel Start No recent travel history available. Last Filed Vital Signs Reading Time Taken Comments Vital Sign 130/79 08/19/2018 3:41 PM CDT Blood Pressure 76 08/19/2018 3:41 PM CDT Pulse 36.7 C (98.1 F) 08/19/2018 3:41 PM CDT Temperature 18 08/19/2018 3:41 PM CDT Respiratory Rate 95% 08/19/2018 3:41 PM CDT Oxygen Saturation - - Inhaled Oxygen Concentration 55.8 kg (123 lb) 08/13/2018 2:48 PM CDT Weight 160 cm (5' 3") 03/04/2018 1:02 PM CDT Height 21.79 03/04/2018 1:02 PM CDT Body Mass Index Plan of Treatment Health Maintenance Due Date [...] CDT ESOPHAGOGASTRODUODENOSCOP 08/15/2018 epigastric pain Y (EGD) 11:19 AM CDT LIPASE LEVEL Routine 08/15/2018 5:38 [...] pathological fracture Left shoulder pain, unspecified chronicity after 02/05/2018 Results * CBC with platelet and differential (08/19/2018 5:10 AM CDT) Only the most recent of 6 results within the time period is included. WBC 8.55 4.50 - 11.00 k/uL [facility] RBC 3.81 (L) 4.20 - 5.50 m/uL [facility] HGB 11.7 (L) 12.0 - 16.0 g/dL [facility] HCT 37.2 37.0 - 47.0 % [facility] MCV 97.6 82.0 - 100.0 fL [facility] MCH 30.7 27.0 - 34.0 pg [facility] MCHC 31.5 31.0 - 37.0 g/dL [facility] RDW - SD 49.9 37.0 - 55.0 fL [facility] MPV 12.6 8.8 - 13.2 fL [facility] Platelet count 162 150 - 400 k/uL [facility] Nucleated RBC 0.00 /100 WBC [facility] Neutrophils 56.7 39.0 - 69.0 % [facility] Lymphocytes 26.4 25.0 - 45.0 % [facility] Monocytes 10.4 (H) 0.0 - 10.0 % [facility] Eosinophils 5.6 (H) 0.0 - 5.0 % [facility] Basophils 0.7 0.0 - 1.0 % [facility] Specimen Blood Performing Organization Address City/State/Zipcode Phone Number [facility] DEPARTMENT [address] [place] [address] PATHOLOGY AND GENOMIC MEDICINE [facility] [id number] [place] [address] * Estimated GFR (08/19/2018 5:00 AM CDT) Only the most recent of 8 results within the time period is included. Estimated GFR 24 (A) mL/min/1.73 m2 [place] Comment: [facility] rpretation G1 >=90 Normal or high G2 60-89Mildly decreased [id number] Mildly to moderately decreased [id number] Moderately to severely decreased G4 15-29Severely decreased G5 <15Kidney failure The eGFR was calculated using the Chronic Kidney Disease Epidemiology Collaboration (CKD-EPI) equation. Interpretation is based on recommendations of the National Kidney Foundation-Kidney Disease Outcomes Quality Initiative (NKF-KDOQI) published in 2014. Specimen Plasma specimen Performing Organization Address City/[facility] Phone Number [address] [place] [address] PATHOLOGY AND [facility] MEDICINE [address] * Lipase level (08/19/2018 5:00 AM CDT) Only the most recent of 7 results within the time period is included. Pathologist [facility] Lipase 52 13 - 60 U/L [facility] Specimen Plasma specimen Performing Organization Address [facility] Phone Number [address] [place] [address] PATHOLOGY [address] * Basic metabolic panel (08/19/2018 5:00 AM CDT) Only the most recent of 3 results within the time period is included. Pathologist [facility] Sodium 138 135 - 148 mEq/L [facility] Potassium 4.3 3.5 - 5.0 mEq/L [facility] Chloride 104 98 - 112 mEq/L [facility] CO2 22 (L) 24 - 31 mEq/L [facility] Anion gap 12@ANIO 7 - 15 mEq/L [facility] BUN 16 8 - 23 mg/dL [facility] Creatinine 2.00 (H) 0.50 - 0.90 mg/dL [facility] Glucose 99 65 - 99 mg/dL [facility] Calcium 9.2 8.8 - 10.2 mg/dL [facility] Specimen Plasma specimen Performing Organization Address [facility] Phone Number [address] [place] [address] PATHOLOGY AND [address] * Magnesium level (08/18/2018 7:50 PM CDT) Only the most recent of 4 results within the time period is included. Pathologist [facility] Magnesium 2.2 1.6 - 2.4 mg/dL [facility] Specimen Plasma specimen Performing Organization Address City/[facility]/Zipcode Phone Number [address] [place] [address] PATHOLOGY AND GENOMIC MEDICINE [address] * POC glucose (08/18/2018 4:30 PM CDT) Only the most recent of 4 results within the time period is included. POC glucose 168 (H) 65 - 99 mg/dL [place] Comment: [facility] Meter ID: [id number] [facility] Senior Storage Engineer: Cristel Hicks Specimen Performing Organization Address [facility] Phone Number [address] [place] [address] PATHOLOGY AND GENOMIC MEDICINE [address] * Phosphorus level (08/18/2018 6:43 AM CDT) Only the most recent of 4 results within the time period is included. Phosphorus 3.1 2.4 - 4.5 mg/dL [facility] Specimen Plasma specimen Performing Organization Address [facility] Phone Number [address] [place] [address] PATHOLOGY AND GENOMIC MEDICINE [address] * MRI Brain Wo Contrast (08/17/2018 [...] IMPRESSION: No acute findings in the brain. [facility]-[id number] Procedure Note Hm Interface, Radiology Results Incoming [...] IMPRESSION: No acute findings in the brain. [facility]-[id number] Performing Organization Address City/State/Zipcode Phone Number [facility] [address] [place] [address] * Gastrointestinal panel (08/17/2018 9:41 AM CDT) Pathologist [facility] Gastrointestina Negative for all pathogens [facility] panel tested: [facility] Negative for Salmonella HOSPITAL Negative for Campylobacter [...] Nonpreserved Performing Organization Address City/State/Zipcode Phone Number [facility] DEPARTMENT OF [address] [place] [id number] PATHOLOGY AND GENOMIC MEDICINE [place] [facility] [address] [place] [address] HOSPITAL * Transfuse RBC (08/16/2018 9:28 PM CDT) Only the most recent of 2 results within the time period is included. * Prepare RBC, 2 Units (08/16/2018 9:05 AM CDT) Product name Red Blood Cells -1, Leukored [facility] Unit number [id number] [facility] Product code [id number] [facility] Dispense status Transfused [facility] Blood [place] expiration date [facility] Blood type code 6200 [facility] Blood type A POSITIVE [facility] Product name Red Blood Cells -1, Leukored [facility] Unit number [id number] [facility] Product code [id number] [facility] Dispense status Transfused [facility] Blood [id number] [place] expiration date [facility] Blood type code 6200 [facility] Blood type A POSITIVE [facility] Specimen Blood Performing Organization Address City/[facility] Phone Number [address] [place] [address] PATHOLOGY AND GENOMIC MEDICINE [address] * Type and screen (08/16/2018 9:05 AM CDT) ABO grouping A [facility] Rh type POS [facility] Antibody screen NEG [facility] Specimen Blood Performing Organization Address City/[facility] Phone Number [address] [place] [address] PATHOLOGY AND GENOMIC MEDICINE [address] * Smear review (08/16/2018 5:00 AM CDT) Platelet slide Marlo adequate [facility] Anisocytosis few [facility] Schistocytes Occasional [facility] Ovalocytes few [facility] Stomatocytes Occasional [facility] Specimen Performing Organization Address City/State/[facility] Phone Number [address] [place] [address] PATHOLOGY AND GENOMIC MEDICINE [address] * Thyroid stimulating hormone (08/16/2018 5:00 AM CDT) TSH 0.93 0.27 - 4.20 uIU/mL [facility] Specimen Plasma specimen Performing Organization Address City/[facility]/Zipcode Phone Number [address] [place] [address] PATHOLOGY AND GENOMIC MEDICINE [address] * Hemoglobin A1c (08/16/2018 5:00 AM CDT) Pathologist [facility] Hemoglobin A1C 4.8 4.0 - 5.6 % [place] Comment: [facility] HbA1c cutoffs for diagnosing [facility] diabetes: 4.0% - 5.6%=normal 5.7% - 6.4%=increased risk for diabetes (prediabetes) >=6.5%=diabetes Goals for glycemic control (ADA 2016) < 7.0%Target for non adults with diabetes. More or less stringent targets may be appropriate for individual patients. <7.5% Target for Children and adolescents with type 1 diabetes. Specimen Blood Performing Organization Address City/[facility] Phone Number [address] [place] [address] PATHOLOGY AND [facility] MEDICINE [address] * Comprehensive metabolic panel (08/16/2018 5:00 AM CDT) Only the most recent of 5 results within the time period is included. Sodium 144 135 - 148 mEq/L [facility] Potassium 4.2 3.5 - 5.0 mEq/L [facility] Chloride 99 98 - 112 mEq/L [facility] CO2 35 (H) 24 - 31 mEq/L [facility] Anion gap 10@ANIO 7 - 15 mEq/L [facility] BUN 27 (H) 8 - 23 mg/dL [facility] Creatinine 1.70 (H) 0.50 - 0.90 mg/dL [facility] Glucose 125 (H) 65 - 99 mg/dL [facility] Calcium 7.8 (L) 8.8 - 10.2 mg/dL [facility] Protein 6.3 6.3 - 8.3 g/dL [place] Comment: [facility] 4.6-7.0 g/dL 1 week 4.4-7.6 g/dL 7 months-1year 5.1-7.3 g/dL 1-2 years5.6-7 .5 g/dL >3 years6.0-8 .0 g/dL 18-150 6.3-8.3 g/dL Albumin 3.0 (L) 3.5 - 5.0 g/dL [facility] A/G ratio 0.9 0.7 - 3.8 [facility] Alkaline 92 35 - 104 U/L [place] phosphatase [facility] AST 17 10 - 35 U/L [facility] ALT 5 5 - 50 U/L [facility] Total bilirubin 0.4 0.0 - 1.2 mg/dL [facility] Specimen Plasma specimen Performing Organization Address [facility]/Zipcode Phone Number [address] [place] [address] PATHOLOGY AND GENOMIC MEDICINE [address] * Surgical pathology request (08/15/2018 12:10 PM CDT) [facility] DEPARTMENT OF PATHOLOGY AND GENOMIC MEDICINE Surgical See link below for PDF Lab [facility] pathology Report DEPARTMENT OF report PATHOLOGY AND GENOMIC MEDICINE Result status This is Final Report for [facility] [id number] DEPARTMENT OF PATHOLOGY AND GENOMIC MEDICINE Specimen Performing Organization Address City/[facility]/Zipcode Phone Number [address] [place] [address] PATHOLOGY AND GENOMIC MEDICINE * NM Hepatobiliary W Pharm (HIDA Scan w Pharm) (08/14/2018 11:18 PM CDT) Specimen Narrative Performed At PROCEDURE: NM HEPATOBILIARY W PHARM (HIDA SCAN W PHARM) [facility] INDICATION: RUQ painno feverno elev WBC COMPARISON: Gallbladder ultrasound 08/14/2018 TECHNIQUE: The patient was injected with 6 mCi of [id number] and dynamic images of the abdomen were [...] may also reduce the gallbladder ejection fraction. [facility] Procedure Note [facility], Radiology Results Incoming - 08/14/2018 11:25 PM CDT PROCEDURE: NM HEPATOBILIARY W PHARM (HIDA SCAN W PHARM) INDICATION: RUQ pain no fever no elev WBC COMPARISON: Gallbladder ultrasound 08/14/2018 TECHNIQUE: The patient was injected with 6 mCi of [id number] and dynamic images of the abdomen were [...] may also reduce the gallbladder ejection fraction. [facility] Performing Organization Address City/State/Zipcode Phone Number [facility] [address] [place] [address] * US Gallbladder (08/14/2018 7:55 PM CDT) Specimen Narrative Performed At EXAMINATION:US GALLBLADDER [facility] CLINICAL HISTORY:RUQ painno feverno elev WBC COMPARISON:None. [...] gallbladder without definite evidence of acute cholecystitis. [facility]-[id number] Procedure Note Interface, Radiology Results - 08/14/2018 10:58 PM CDT EXAMINATION: US [...] gallbladder without definite evidence of acute cholecystitis. [facility]-[id number] Performing Organization Address City/State/Zipcode Phone Number [facility] [address] [place] [address] * Arterial blood gas (08/14/2018 7:50 AM CDT) pH, arterial 7.13 (LL)Comment: Results 7.35 - 7.45 [place] called to and read back by DONNA KENT ON 08/14/2018 [facility] 08:10 BY ELLEN pCO2, arterial 20 (LL)Comment: Results called 35 - 45 mmHg [place] to and read back by KATIE MILLAN ON 08/14/2018 08:10 [facility] BY ELLEN pO2, arterial 125 (H) 80 - 90 mmHg [facility] Bicarbonate, 8.9 (L) 21.0 - 28.0 mmol/L [place] arterial [facility] Base excess, -21 (L) -2 - 2 mEq/L [place] arterial [facility] O2 saturation, 98 95 - 100 % [place] arterial [facility] FiO2, inspired 21 % [place] O2% [facility] Specimen Blood Performing Organization Address City/State/Zipcode [place] [address] [place] [address] PATHOLOGY AND GENOMIC MEDICINE [facility] [address] [place] [address] [facility] * Blood culture, aerobic & anaerobic (08/13/2018 6:35 PM CDT) Only the most recent of 2 results within the time period is included. Blood culture No growth after 5 days of [place] isolate incubation. [facility] Comment: HOSPITAL Specimen Information Specimen Source: Blood Specimen Site: Arm, left Specimen Blood - Arm, left Performing Organization Address City/[facility]/Zipcode Phone Number [facility] DEPARTMENT OF [address] [place] [address] PATHOLOGY AND GENOMIC MEDICINE [facility] [address] [place] [address] [facility] * CT Abdomen Pelvis Wo Contrast (08/13/2018 [...] in the rectum. 4.No bony abnormalities appreciated. [id number] Procedure Note Interface, Radiology Results Incoming - [...] the rectum. 4. No bony abnormalities appreciated. [id number] Performing Organization Address City/State/Zipcode Phone Number [facility] [address] [place] [address] * CT Head Wo Contrast (08/13/2018 3:38 PM CDT) Specimen Narrative Performed At EXAMINATION:[facility] PERFORMED WITH ITERATIVE RECONSTRUCTION [...] and no change from the prior study. [id number] Procedure Note Interface, Radiology Results Incoming - [...] and no change from the prior study. [id number] Performing Organization Address [facility] Phone Number [facility] [address] [place] [address] * Partial thromboplastin time, activated (08/13/2018 3:00 PM CDT) Pathologist [facility] PTT 37.6 (H) 23.0 - 36.0 sec [place] Comment: DONNA BOWDEN PTT therapeutic range for [facility] unfractionated heparin is 61.0-112.0 seconds which corresponds to Anti-Xa 0.3-0.7 U/ml. Specimen Blood Performing Organization Address [facility] Phone Number [address] * Prothrombin time with INR (08/13/2018 3:00 PM CDT) Pathologist [facility] Prothrombin 16.3 (H) 11.5 - 14.5 sec [place] time [facility] INR 1.4 [place] Comment: DONNA BOWDEN The International Normalized [facility] Ratio (INR) is a therapeutic monitoring tool for patients who are stable on oral anticoagulant therapy. An INR of 2.0-3.0 is suggested for deep vein thrombosis/pulmonary embolism. Specimen Blood Performing Organization Address [facility] Phone Number [facility] DEPARTMENT [address] [place] [id number] PATHOLOGY AND GENOMIC MEDICINE [facility] [address] [place] [address] [facility] * Lactic acid level (08/13/2018 3:00 PM CDT) Pathologist [facility] Lactic acid 0.7 0.5 - 2.2 mmol/L [facility] Specimen Plasma specimen Performing Organization Address City/State/Zipcode Phone Number [facility] [id number] [place] [address] [place] [id number] PATHOLOGY AND GENOMIC MEDICINE [facility] [address] [place] [address] * Urinalysis screen and microscopy, with reflex to culture (03/04/2018 1:15 PM CDT) Pathologist [facility] Specimen site Clean catch [facility] DEPARTMENT OF PATHOLOGY AND GENOMIC MEDICINE Color, UA Yellow [facility] DEPARTMENT OF PATHOLOGY AND GENOMIC MEDICINE Appearance, UA Cloudy [facility] DEPARTMENT OF PATHOLOGY AND GENOMIC MEDICINE Specific 1.012 1.001 - 1.035 [facility], DEPARTMENT OF PATHOLOGY AND GENOMIC MEDICINE pH, UA 6.0 5.0 - 8.5 [facility] DEPARTMENT OF PATHOLOGY AND GENOMIC MEDICINE Protein, UA 2+ (A) Negative [facility] DEPARTMENT OF PATHOLOGY AND GENOMIC MEDICINE Glucose, UA 2+ (A) Negative [facility] DEPARTMENT OF PATHOLOGY AND GENOMIC MEDICINE Ketones, UA Negative Negative [facility] DEPARTMENT OF PATHOLOGY AND GENOMIC MEDICINE Bilirubin, UA Negative Negative [facility] DEPARTMENT OF PATHOLOGY AND GENOMIC MEDICINE Blood, UA Small (A) Negative [facility] DEPARTMENT OF PATHOLOGY AND GENOMIC MEDICINE Nitrite, UA Negative Negative [facility] DEPARTMENT OF PATHOLOGY AND GENOMIC MEDICINE Urobilinogen, Negative <2.0 [facility] DEPARTMENT OF PATHOLOGY AND GENOMIC MEDICINE Leukocyte Large (A) Negative [facility] esterase, DEPARTMENT OF PATHOLOGY AND GENOMIC MEDICINE Epithelial Few /HPF [facility] cells, DEPARTMENT OF PATHOLOGY AND GENOMIC MEDICINE Round Many 0 - 1 /HPF [facility] epithelial DEPARTMENT OF cells, PATHOLOGY AND GENOMIC MEDICINE WBC, UA 61-80 (H) 0 - 4 /HPF [facility] DEPARTMENT OF PATHOLOGY AND GENOMIC MEDICINE RBC, UA 11-20 (H) 0 - 5 /HPF [facility] DEPARTMENT OF PATHOLOGY AND GENOMIC MEDICINE Bacteria, UA Trace None seen [facility] DEPARTMENT OF PATHOLOGY AND GENOMIC MEDICINE WBC clumps, UA Many (A) [facility] DEPARTMENT OF PATHOLOGY AND GENOMIC MEDICINE Yeast, UA None seen [facility] DEPARTMENT OF PATHOLOGY AND GENOMIC MEDICINE Yeast with None seen [facility] pseudohyphae, DEPARTMENT OF UA PATHOLOGY AND GENOMIC MEDICINE Specimen Urine Performing Organization Address City/State/Zipcode Phone Number [facility] [place] [address] [place] [address] PATHOLOGY AND GENOMIC MEDICINE * Gram stain (03/04/2018 1:15 PM CDT) Gram stain Moderate WBC's [facility] DEPARTMENT result Few Gram negative rods OF PATHOLOGY Comment: AND GENOMIC Specimen Information MEDICINE Specimen Source: Urine Specimen Site: Clean catch Specimen Urine Performing Organization Address City/State/Zipcode Phone Number [facility] DEPARTMENT OF [address] [place] [address] PATHOLOGY AND GENOMIC MEDICINE * Urine culture (03/04/2018 1:15 PM CDT) Urine culture Escherichia coli [facility] DEPARTMENT isolate >10-5 cfu/ml OF PATHOLOGY (A) AND GENOMIC Comment: MEDICINE Specimen Information Specimen Source: Urine Specimen Site: Clean catch Urine culture Enterococcus faecalis [facility] DEPARTMENT isolate 10-4 cfu/ml OF PATHOLOGY The performance AND GENOMIC characteristics of this assay MEDICINE on this isolate were validated by the Microbiology Laboratory at [facility].This source has not been approved by the U.S. Food and Drug Administration.The results are not intended to be used as the sole means for clinical diagnosis or patient management.[facility] is authorized under the clinical Laboratory Improvement Amendments of 1988 (CLIA-88) to perform high complexity testing. This organism is Vancomycin Sensitive. (A) Urine culture Mixed Gram positive zak [facility] isolate 10-1 cfu/ml OF PATHOLOGY (A) AND GENOMIC MEDICINE Specimen Urine Antibiotic Method Susceptibility Organism Ampicillin DAVEY <=2 mcg/mL: Susceptible Escherichia coli Amoxicillin/Clavulanate DAVEY [...] faecalis Performing Organization Address City/State/Zipcode Phone Number [facility] OF [address] [place] [address] PATHOLOGY AND GENOMIC MEDICINE * XR Shoulders [...] involving the AC joint and glenohumeral joint. [id number] Procedure Note Interface, Radiology Results Incoming - [...] involving the AC joint and glenohumeral joint. [facility]-[id number] Performing Organization Address City/State/Zipcode Phone Number [facility] [address] [place] [address] * Bone Density (02/27/2018 2:05 PM CDT) Specimen Narrative Performed At [facility]IN[facility]M81.0 Age-related osteoporosis without current pathological [...] bilateral femurs. Within normal range lumbar spine [id number] A copy of this scans including a [...] bilateral femurs. Within normal range lumbar spine [id number] A copy of this scans including a report detailing these results will follow. Note: The world health organization (WHO) has classified the patient's T-score as follows: Above (-1) as normal (-1) to (-2.5) as low (osteopenia) Below (-2.5) as abnormally low (osteoporosis, increased fracture risk) Performing Organization Address City/State/Zipcode Phone Number [facility]ART[facility] REH[facility] [address] [place] [address] after 02/05/2018 Insurance Type Payer Benefit Subscriber ID Effective Phone Address Plan / Dates Group Medicare MEDICARE MEDICARE xxxxxxxxxxx 2010- [place], PART A AND Present [place] Commercial AARP AARP xxxxxxxxxxx [id number] SUPPLEMENT resent Advance Directives For more information, please contact: [phone] 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
--- OUTSIDE RECORDS SUMMARY | 2019-02-06 14:11 | XMS REPORT | Continuity of Care Document ---
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 Name Role Phone [employer] Information [employer] Unavailable Unavailable Problems Problem Status Onset Date Classification Date Reported Comments Source Essential hypertension Active Problem 11/19/2018 [facility] Infective myositis, unspecified toe Active Problem 11/19/2018 [facility] Hypothyroidism, unspecified Active Problem 11/19/2018 [facility] Other acute osteomyelitis, right ankle and foot Active Problem 11/19/2018 [facility] Pain in unspecified toe Active Problem 11/19/2018 [facility] Tinea unguium Active Problem 11/19/2018 [facility] Type 2 diabetes mellitus with foot ulcer Active Problem 11/19/2018 [facility] Noninfective gastroenteritis and colitis, unspecified Active Problem 11/19/2018 [facility] Pressure ulcer of other site, stage 4 Active Problem 11/19/2018 [facility] Pain in unspecified foot Active Problem 11/19/2018 [facility] Pressure ulcer of other site, unspecified stage Active Problem 11/19/2018 [facility] Other idiopathic peripheral autonomic neuropathy Active Problem 11/19/2018 [facility] Cellulitis of right toe Active Problem 11/19/2018 [facility] Gangrene, not elsewhere classified Active Problem 11/19/2018 [facility] Type 2 diabetes mellitus with diabetic neuropathy, unspecified Active Problem 11/19/2018 [facility] Acute lymphangitis, unspecified Active Problem 11/19/2018 [facility] Cellulitis, unspecified Active Problem 11/19/2018 [facility] Other specified local infections of the skin and subcutaneous tissue Active Problem 11/19/2018 [facility] Methicillin susceptible Staphylococcus aureus infection as the cause of diseases classified elsewhere Active Problem 11/19/2018 [facility] Abscess of bursa, right ankle and foot Active Problem 11/19/2018 [facility] Non-pressure chronic ulcer of other part of right foot with unspecified severity Active Problem 11/19/2018 [facility] Other Gram-negative sepsis Active Problem 11/19/2018 [facility] Abrasion, unspecified great toe, initial encounter Active Problem 11/19/2018 [facility] Low back pain Active Problem 11/19/2018 [facility] Disruption of external operation wound, not elsewhere classified, initial encounter Active Problem 11/19/2018 [facility] Disruption of external operation wound, not elsewhere classified, subsequent encounter Active Problem 11/19/2018 [facility] Chronic multifocal osteomyelitis, right ankle and foot Active Problem 11/19/2018 [facility] Hyperlipidemia, unspecified Active Problem 11/19/2018 [facility] Age-related osteoporosis without current pathological fracture Active Problem 11/19/2018 [facility] Rheumatoid arthritis without rheumatoid factor, multiple sites Active Problem 11/19/2018 [facility] Inflammatory polyarthropathy Active Problem 11/19/2018 [facility] Hyperuricemia without signs of inflammatory arthritis and tophaceous disease Active Problem 11/19/2018 [facility] Chronic kidney disease, stage 3 Active Problem 11/19/2018 [facility] Pain in left shoulder Active Problem 11/19/2018 [facility] Pain in unspecified hip Active Problem 11/19/2018 [facility] Peripheral vascular disease, unspecified Active Problem 11/19/2018 [facility] Chronic pain syndrome Active Problem 11/19/2018 [facility] Xerosis cutis Active Problem 11/19/2018 [facility] Other pruritus Active Problem 11/19/2018 [facility] Chronic kidney disease, stage 4 Active Problem 11/19/2018 [facility] Primary osteoarthritis, left shoulder Active Problem 11/19/2018 [facility] Type 1 diabetes mellitus with foot ulcer Active Diagnosis 05/12/2017 [facility] Pain in right toe Active Diagnosis 12/08/2017 [facility] Atherosclerosis of [place] arteries of left leg with ulceration of other part of foot Active Problem 11/19/2018 [facility] Other acute osteomyelitis, left ankle and foot Active Problem 11/19/2018 [facility] Non-pressure chronic ulcer of other part of left foot with necrosis of bone Active Problem 11/19/2018 [facility] Medications Medication Details Route Status Patient Instructions Ordering Provider Order Date Source Cefazolin in D5W as directed Intravenous Active 2 Grams- Solution Reconstituted Intravenous Q 24 hours Nseir 06/26/2017 [facility] Tramadol HCl 1 tablet as needed Orally Active 50 mg Orally daily Nseir 05/09/2017 [facility] Gabapentin 1 tablet Orally Active 100 MG Orally twice a day (bid) Nseir 04/15/2017 [facility] Gabapentin 1 capsule Orally Active 400 MG Orally Q 12 hours Gosia 04/11/2017 [facility] Voltaren 2 grams Transdermal Active 1 % Transdermal four times a day (qid) [facility] Cefazolin in D5W as directed Intravenous Active 2 GM/100ML Intravenous Q 24 hours starting 12/29/16 [facility] 12/28/2016 [facility] Tramadol one tab orally Active 50 mg orally every 4-6 hours prn pain [facility] 12/21/2016 [facility] Silvadene 1 application to affected area Externally Active 1 % Externally Once a day [facility] 12/11/2016 [facility] Metoprolol Tartrate 1 tablet with food Orally Active 25 MG Orally Twice a day [facility] ALPRAZolam ER 1 tablet in the morning Orally Active 0.5 MG Orally Once a day [facility] Sucralfate 10 ml Orally Active 1 GM/10ML Orally Twice a day [facility] Levothyroxine Sodium 1 capsule on an empty stomach in the morning Orally Active 112 MCG Orally Once a day [facility] Amlodipine Besylate 1 tablet Orally Active 10 MG Orally Once a day [facility] HydrOXYzine HCl 1 tablet as needed Orally Active 50 MG Orally daily [facility] Atorvastatin Calcium 1 tablet Orally Active 20 MG Orally daily [facility] Alendronate Sodium 1 tablet Orally Active 70 MG Orally weekly [facility] Mirtazapine 1 tablet Orally Active 15 MG Orally daily [facility] Levothyroxine Sodium 1 capsule on an empty stomach in the morning Orally Active 112 MCG Orally Once a day [facility] Allergies, Adverse Reactions, Alerts Substance Category Reaction Severity Reaction type Status Date Reported Comments Source N.K.D.A. Adverse Reaction Info Not Available Adverse Reaction Active 06/25/2017 [facility] Immunizations No Data Provided for This Section [...] Value Date Comments Source Weight 123 06/25/2017 [facility] Systolic (mm Hg) 120 06/25/2017 [facility] Respitory Rate 16 06/25/2017 [facility] Heart Rate 68 06/25/2017 [facility] Temperature Oral (F) 97.0 F 06/25/2017 [facility] Diastolic (mm Hg) 73 06/25/2017 [facility] Weight 135 01/15/2017 [facility] Systolic (mm Hg) 111 01/15/2017 [facility] Respitory Rate 16 01/15/2017 [facility] Heart Rate 63 01/15/2017 [facility] Temperature Oral (F) 97.5 F 01/15/2017 [facility] Diastolic (mm Hg) 68 01/15/2017 [facility] Weight 135 01/03/2017 [facility] Systolic (mm Hg) 120 01/03/2017 [facility] Respitory Rate 16 01/03/2017 [facility] Heart Rate 64 01/03/2017 [facility] Temperature Oral (F) 97.6 F 01/03/2017 [facility] Diastolic (mm Hg) 60 01/03/2017 [facility] Weight 144 12/25/2016 [facility] Systolic (mm Hg) 132 12/25/2016 [facility] Respitory Rate 16 12/25/2016 [facility] Heart Rate 74 12/25/2016 [facility] Temperature Oral (F) 98.8 F 12/25/2016 [facility] Diastolic (mm Hg) 66 12/25/2016 [facility] Weight 138 12/11/2016 [facility] Systolic (mm Hg) 126 12/11/2016 [facility] Respitory Rate 16 12/11/2016 [facility] Heart Rate 69 12/11/2016 [facility] Temperature Oral (F) 99.2 F 12/11/2016 [facility] Diastolic (mm Hg) 80 12/11/2016 [facility] Encounters No Data Provided for This [...]
[2019-02-06] MEDS ORDERED: SODIUM CHLORIDE 0.9% 1000ML 1,000 ML IV SCH (14:30)
--- NOTE | 2019-02-06 15:42 | Diagnostic Imaging Report ---
Chest, 1 view, 02/06/2019. History: Dehydration, weakness. Comparison: None available. Findings: The cardiomediastinal silhouette and pulmonary vasculature are within normal limits for a portable exam. There is no focal consolidation or pleural effusion. Degenerative changes are noted in the left shoulder. There are no acute osseous or soft tissue abnormalities. Impression: No acute cardiopulmonary abnormality. Signed by: Ezekiel Belle on 02/06/2019 3:38 PM
[2019-02-06 16:26] LABS: BASOPHILS % 0.3 % (0.0-1.0); EOSINOPHILS # (AUTO) 0.1 (0.0-0.4); EOSINOPHILS % 0.6 % (0.0-6.0); HEMATOCRIT 28.6 % (34.2-44.1); HEMOGLOBIN 9.3 g/dL (12.0-16.0); LYMPHOCYTES # (AUTO) 2.7 (1.0-3.2); MEAN CORPUSCULAR HEMOGLOBIN 32.7 pg (28-32); MEAN CORPUSCULAR HGB CONC 32.5 g/dL (31-35); MEAN CORPUSCULAR VOLUME 100.7 fL (81-99); MONOCYTES # (AUTO) 0.6 (0.2-0.8); MONOCYTES % 5.6 % (4.4-11.3); NEUTROPHILS # (AUTO) 7.2 (2.1-6.9); PLATELET COUNT 212 x10e3/uL (140-360); RED BLOOD COUNT 2.84 x10e6/uL (3.6-5.1); RED CELL DISTRIBUTION WIDTH 15.3 % (11.7-14.4)
[2019-02-06 16:36] LABS: INR 1.14; PROTHROMBIN TIME 15.2 seconds (11.9-14.5)
[2019-02-06 16:37] LABS: PARTIAL THROMBOPLASTIN TIME 30.9 seconds (23.8-35.5)
[2019-02-06 16:47] LABS: ALBUMIN/GLOBULIN RATIO 0.7 (0.8-2.0); ANION GAP 17.5 mmol/L (8-16); CALCIUM 10.1 mg/dL (8.4-10.2); CREATININE, SERUM 4.12 mg/dL (0.57-1.11); POTASSIUM 3.5 mmol/L (3.5-5.1)
[2019-02-06 16:53] LABS: CREATINE KINASE MB 0.5 ng/mL (0-5.0); MAGNESIUM 4.7 MG/DL (1.3-2.1)
--- NOTE | 2019-02-06 17:23 | NUR ---
AUNDREA TIMMONS INFORMED OF CRITICAL MAGNESIUM
[2019-02-06] MEDS ORDERED: ONDANSETRON HCL INJ 2MG/ML 2ML 2 MG/ML VIAL IV PRN (18:15)
[2019-02-06] MEDS ORDERED: DEXTROSE 50% SYRINGE 50 ML IV PRN (18:15)
--- OUTSIDE RECORDS SUMMARY | 2019-02-06 18:51 | XMS REPORT | Clinical Summary ---
Author Author [employer] Address Unknown Phone Unavailable Care Team Providers Care Census Enumerator Name Role Phone RosannaOsmin DO PCP Allergies [...] type; Diarrhea, unspecified type; Gastroenteritis, acute 08/13/2018 [facility] General Internal Medicine - Encounter 08/19/2018 [...] included. WBC 8.55 4.50 - 11.00 k/uL [facility] RBC 3.81 (L) 4.20 - 5.50 m/uL [facility] HGB 11.7 (L) 12.0 - 16.0 g/dL [facility] HCT 37.2 37.0 - 47.0 % [facility] MCV 97.6 82.0 - 100.0 fL [facility] MCH 30.7 27.0 - 34.0 pg [facility] MCHC 31.5 31.0 - 37.0 g/dL [facility] RDW - SD 49.9 37.0 - 55.0 fL [facility] MPV 12.6 8.8 - 13.2 fL [facility] Platelet count 162 150 - 400 k/uL [facility] Nucleated RBC 0.00 /100 WBC [facility] Neutrophils 56.7 39.0 - 69.0 % [facility] Lymphocytes 26.4 25.0 - 45.0 % [facility] Monocytes 10.4 (H) 0.0 - 10.0 % [facility] Eosinophils 5.6 (H) 0.0 - 5.0 % [facility] Basophils 0.7 0.0 - 1.0 % [facility] Specimen Blood Performing Organization Address City/State/Zipcode Phone Number [facility] DEPARTMENT [address] [place] [address] PATHOLOGY AND GENOMIC MEDICINE [facility] [id number] [place] [address] * Estimated GFR (08/19/2018 5:00 AM CDT) Only the most recent of 8 results within the time period is included. Estimated GFR 24 (A) mL/min/1.73 m2 [place] Comment: [facility] rpretation G1 >=90 Normal or high G2 60-89Mildly decreased [id number] Mildly to moderately decreased [id number] Moderately to severely decreased G4 15-29Severely decreased G5 <15Kidney failure The eGFR was calculated using the Chronic Kidney Disease Epidemiology Collaboration (CKD-EPI) equation. Interpretation is based on recommendations of the National Kidney Foundation-Kidney Disease Outcomes Quality Initiative (NKF-KDOQI) published in 2014. Specimen Plasma specimen Performing Organization Address City/[facility] Cent[facility] Phone Number [address] [place] [address] PATHOLOGY AND [facility] MEDICINE [address] * Lipase level (08/19/2018 5:00 AM CDT) Only the most recent of 7 results within the time period is included. Pathologist [facility] Lipase 52 13 - 60 U/L [facility] Specimen Plasma specimen Performing Organization Address [facility] Center[facility]il Phone Number [address] [place] [address] PATHOLOGY [address] * Basic metabolic panel (08/19/2018 5:00 AM CDT) Only the most recent of 3 results within the time period is included. Pathologist [facility] Sodium 138 135 - 148 mEq/L [facility] Potassium 4.3 3.5 - 5.0 mEq/L [facility] Chloride 104 98 - 112 mEq/L [facility] CO2 22 (L) 24 - 31 mEq/L [facility] Anion gap 12@ANIO 7 - 15 mEq/L [facility] BUN 16 8 - 23 mg/dL [facility] Creatinine 2.00 (H) 0.50 - 0.90 mg/dL [facility] Glucose 99 65 - 99 mg/dL [facility] Calcium 9.2 8.8 - 10.2 mg/dL [facility] Specimen Plasma specimen Performing Organization Address [facility] Phone Number [address] [place] [address] PATHOLOGY AND [address] * Magnesium level (08/18/2018 7:50 PM CDT) Only the most recent of 4 results within the time period is included. Pathologist [facility] Magnesium 2.2 1.6 - 2.4 mg/dL [facility] Specimen Plasma specimen Performing Organization Address City/[facility]/Zipcode Phone Number [address] [place] [address] PATHOLOGY AND GENOMIC MEDICINE [address] * POC glucose (08/18/2018 4:30 PM CDT) Only the most recent of 4 results within the time period is included. POC glucose 168 (H) 65 - 99 mg/dL [place] Comment: [facility] Meter ID: [id number] [facility] Salesperson [employer]: Cristel Hicks Specimen Performing Organization Address [facility] Centercode Phone Number [address] [place] [address] PATHOLOGY AND GENOMIC MEDICINE [address] * Phosphorus level (08/18/2018 6:43 AM CDT) Only the most recent of 4 results within the time period is included. Phosphorus 3.1 2.4 - 4.5 mg/dL [facility] Specimen Plasma specimen Performing Organization Address [facility] Centercode Phone Number [address] [place] [address] PATHOLOGY AND GENOMIC MEDICINE [address] * MRI Brain Wo Contrast (08/17/2018 [...] IMPRESSION: No acute findings in the brain. [facility]-[id number] Procedure Note Hm Interface, Radiology Results Incoming [...] IMPRESSION: No acute findings in the brain. [facility]-[id number] Performing Organization Address City/State/Zipcode Phone Number [facility] [address] [place] [address] * Gastrointestinal panel (08/17/2018 9:41 AM CDT) Pathologist [facility] Gastrointestina Negative for all pathogens [facility] panel tested: [facility] Negative for Salmonella HOSPITAL Negative for Campylobacter [...] Nonpreserved Performing Organization Address City/State/Zipcode Phone Number [facility] DEPARTMENT OF [address] [place] [address] PATHOLOGY AND GENOMIC MEDICINE [place] [facility] [address] [place] [address] HOSPITAL * Transfuse RBC (08/16/2018 9:28 PM CDT) Only the most recent of 2 results within the time period is included. * Prepare RBC, 2 Units (08/16/2018 9:05 AM CDT) Product name Red Blood Cells -1, Leukored [facility] Unit number [id number] [facility] Product code [id number] [facility] Dispense status Transfused [facility] Blood [place] expiration date [facility] Blood type code 6200 [facility] Blood type A POSITIVE [facility] Product name Red Blood Cells -1, Leukored [facility] Unit number [id number] [facility] Product code [id number] [facility] Dispense status Transfused [facility] Blood [id number] [place] expiration date [facility] Blood type code 6200 [facility] Blood type A POSITIVE [facility] Specimen Blood Performing Organization Address City/[facility] Phone Number [address] [place] [address] PATHOLOGY AND GENOMIC MEDICINE [address] * Type and screen (08/16/2018 9:05 AM CDT) ABO grouping A [facility] Rh type POS [facility] Antibody screen NEG [facility] Specimen Blood Performing Organization Address City/[facility] Phone Number [address] [place] [address] PATHOLOGY AND GENOMIC MEDICINE [address] * Smear review (08/16/2018 5:00 AM CDT) Platelet slide Marlo adequate [facility] Anisocytosis few [facility] Schistocytes Occasional [facility] Ovalocytes few [facility] Stomatocytes Occasional [facility] Specimen Performing Organization Address City/State/[facility] Centercode Phone Number [address] [place] [address] PATHOLOGY AND GENOMIC MEDICINE [address] * Thyroid stimulating hormone (08/16/2018 5:00 AM CDT) TSH 0.93 0.27 - 4.20 uIU/mL [facility] Specimen Plasma specimen Performing Organization Address City/[facility]/Zipcode Phone Number [address] [place] [address] PATHOLOGY AND GENOMIC MEDICINE [address] * Hemoglobin A1c (08/16/2018 5:00 AM CDT) Pathologist [facility] Hemoglobin A1C 4.8 4.0 - 5.6 % [place] Comment: [facility] HbA1c cutoffs for diagnosing [facility] diabetes: 4.0% - 5.6%=normal 5.7% - 6.4%=increased risk for diabetes (prediabetes) >=6.5%=diabetes Goals for glycemic control (ADA 2016) < 7.0%Target for non adults with diabetes. More or less stringent targets may be appropriate for individual patients. <7.5% Target for Children and adolescents with type 1 diabetes. Specimen Blood Performing Organization Address City/[facility] Centercode Phone Number [address] [place] [address] PATHOLOGY AND [facility] MEDICINE [address] * Comprehensive metabolic panel (08/16/2018 5:00 AM CDT) Only the most recent of 5 results within the time period is included. Sodium 144 135 - 148 mEq/L [facility] Potassium 4.2 3.5 - 5.0 mEq/L [facility] Chloride 99 98 - 112 mEq/L [facility] CO2 35 (H) 24 - 31 mEq/L [facility] Anion gap 10@ANIO 7 - 15 mEq/L [facility] BUN 27 (H) 8 - 23 mg/dL [facility] Creatinine 1.70 (H) 0.50 - 0.90 mg/dL [facility] Glucose 125 (H) 65 - 99 mg/dL [facility] Calcium 7.8 (L) 8.8 - 10.2 mg/dL [facility] Protein 6.3 6.3 - 8.3 g/dL [place] Comment: [facility] 4.6-7.0 g/dL 1 week 4.4-7.6 g/dL 7 months-1year 5.1-7.3 g/dL 1-2 years5.6-7 .5 g/dL >3 years6.0-8 .0 g/dL 18-150 6.3-8.3 g/dL Albumin 3.0 (L) 3.5 - 5.0 g/dL [facility] A/G ratio 0.9 0.7 - 3.8 [facility] Alkaline 92 35 - 104 U/L [place] phosphatase [facility] AST 17 10 - 35 U/L [facility] ALT 5 5 - 50 U/L [facility] Total bilirubin 0.4 0.0 - 1.2 mg/dL [facility] Specimen Plasma specimen Performing Organization Address [facility]/Zipcode Phone Number [address] [place] [address] PATHOLOGY AND GENOMIC MEDICINE [address] * Surgical pathology request (08/15/2018 12:10 PM CDT) [facility] DEPARTMENT OF PATHOLOGY AND GENOMIC MEDICINE Surgical See link below for PDF Lab [facility] pathology Report DEPARTMENT OF report PATHOLOGY AND GENOMIC MEDICINE Result status This is Final Report for [facility] [id number] DEPARTMENT OF PATHOLOGY AND GENOMIC MEDICINE Specimen Performing Organization Address City/[facility]/Zipcode Phone Number [address] [place] [address] PATHOLOGY AND GENOMIC MEDICINE * NM Hepatobiliary W Pharm (HIDA Scan w Pharm) (08/14/2018 11:18 PM CDT) Specimen Narrative Performed At PROCEDURE: NM HEPATOBILIARY W PHARM (HIDA SCAN W PHARM) [facility] INDICATION: RUQ painno feverno elev WBC COMPARISON: Gallbladder ultrasound 08/14/2018 TECHNIQUE: The patient was injected with 6 mCi of [id number] and dynamic images of the abdomen were [...] may also reduce the gallbladder ejection fraction. [facility] Procedure Note [facility], Radiology Results Incoming - 08/14/2018 11:25 PM CDT PROCEDURE: NM HEPATOBILIARY W PHARM (HIDA SCAN W PHARM) INDICATION: RUQ pain no fever no elev WBC COMPARISON: Gallbladder ultrasound 08/14/2018 TECHNIQUE: The patient was injected with 6 mCi of [id number] and dynamic images of the abdomen were [...] may also reduce the gallbladder ejection fraction. [facility] Performing Organization Address City/State/Zipcode Phone Number [facility] [address] [place] [address] * US Gallbladder (08/14/2018 7:55 PM CDT) Specimen Narrative Performed At EXAMINATION:US GALLBLADDER [facility] CLINICAL HISTORY:RUQ painno feverno elev WBC COMPARISON:None. [...] gallbladder without definite evidence of acute cholecystitis. [facility]-[id number] Procedure Note Interface, Radiology Results - 08/14/2018 [...] gallbladder without definite evidence of acute cholecystitis. [facility]-[id number] Performing Organization Address City/State/Zipcode Phone Number [facility] [address] [place] [address] * Arterial blood gas (08/14/2018 7:50 AM CDT) pH, arterial 7.13 (LL)Comment: Results 7.35 - 7.45 [place] called to and read back by DONNA KENT ON 08/14/2018 [facility] 08:10 BY ELLEN pCO2, arterial 20 (LL)Comment: Results called 35 - 45 mmHg [place] to and read back by KATIE MILLAN ON 08/14/2018 08:10 [facility] BY ELLEN pO2, arterial 125 (H) 80 - 90 mmHg [facility] Bicarbonate, 8.9 (L) 21.0 - 28.0 mmol/L [place] arterial [facility] Base excess, -21 (L) -2 - 2 mEq/L [place] arterial [facility] O2 saturation, 98 95 - 100 % [place] arterial [facility] FiO2, inspired 21 % [place] O2% [facility] Specimen Blood Performing Organization Address City/State/Zipcode [place] Number [place] [address] [place] [address] PATHOLOGY AND GENOMIC MEDICINE [facility] [address] [place] [address] [facility] * Blood culture, aerobic & anaerobic (08/13/2018 6:35 PM CDT) Only the most recent of 2 results within the time period is included. Blood culture No growth after 5 days of [place] isolate incubation. [facility] Comment: HOSPITAL Specimen Information Specimen Source: Blood Specimen Site: Arm, left Specimen Blood - Arm, left Performing Organization Address City/[facility]/Zipcode Phone Number [facility] DEPARTMENT OF [address] [place] [address] PATHOLOGY AND GENOMIC MEDICINE [facility] [address] [place] [address] [facility] * CT Abdomen Pelvis Wo Contrast (08/13/2018 [...] in the rectum. 4.No bony abnormalities appreciated. [id number] Procedure Note Interface, Radiology Results Incoming - [...] the rectum. 4. No bony abnormalities appreciated. [id number] Performing Organization Address City/State/Zipcode Phone Number [facility] [address] [place] [address] * CT Head Wo Contrast (08/13/2018 3:38 PM CDT) Specimen Narrative Performed At EXAMINATION:CT HEAD WO [facility] IMAGING WAS PERFORMED WITH ITERATIVE RECONSTRUCTION [...] and no change from the prior study. [id number] Procedure Note Interface, Radiology Results Incoming - [...] and no change from the prior study. [id number] Performing Organization Address [facility] Phone Number [facility] [address] [place] [address] * Partial thromboplastin time, activated (08/13/2018 3:00 PM CDT) Pathologist [facility] PTT 37.6 (H) 23.0 - 36.0 sec [place] Comment: DONNA BOWDEN PTT therapeutic range for [facility] unfractionated heparin is 61.0-112.0 seconds which corresponds to Anti-Xa 0.3-0.7 U/ml. Specimen Blood Performing Organization Address [facility] Phone Number [address] * Prothrombin time with INR (08/13/2018 3:00 PM CDT) Pathologist [facility] Prothrombin 16.3 (H) 11.5 - 14.5 sec [place] time [facility] INR 1.4 [place] Comment: DONNA BOWDEN The International Normalized [facility] Ratio (INR) is a therapeutic monitoring tool for patients who are stable on oral anticoagulant therapy. An INR of 2.0-3.0 is suggested for deep vein thrombosis/pulmonary embolism. Specimen Blood Performing Organization Address [facility] Phone Number [facility] DEPARTMENT [address] [place] [id number] PATHOLOGY AND GENOMIC MEDICINE [facility] [address] [place] [address] [facility] * Lactic acid level (08/13/2018 3:00 PM CDT) Pathologist [facility] Lactic acid 0.7 0.5 - 2.2 mmol/L [facility] Specimen Plasma specimen Performing Organization Address City/State/Zipcode Phone Number [facility] [id number] [place] [address] [place] [id number] PATHOLOGY AND GENOMIC MEDICINE [facility] [address] [place] [address] * Urinalysis screen and microscopy, with reflex to culture (03/04/2018 1:15 PM CDT) Pathologist [facility] Specimen site Clean catch [facility] DEPARTMENT OF PATHOLOGY AND GENOMIC MEDICINE Color, UA Yellow [facility] DEPARTMENT OF PATHOLOGY AND GENOMIC MEDICINE Appearance, UA Cloudy [facility] DEPARTMENT OF PATHOLOGY AND GENOMIC MEDICINE Specific 1.012 1.001 - 1.035 [facility] gravity, DEPARTMENT OF PATHOLOGY AND GENOMIC MEDICINE pH, UA 6.0 5.0 - 8.5 [facility] DEPARTMENT OF PATHOLOGY AND GENOMIC MEDICINE Protein, UA 2+ (A) Negative [facility] DEPARTMENT OF PATHOLOGY AND GENOMIC MEDICINE Glucose, UA 2+ (A) Negative [facility] DEPARTMENT OF PATHOLOGY AND GENOMIC MEDICINE Ketones, UA Negative Negative [facility] DEPARTMENT OF PATHOLOGY AND GENOMIC MEDICINE Bilirubin, UA Negative Negative [facility] DEPARTMENT OF PATHOLOGY AND GENOMIC MEDICINE Blood, UA Small (A) Negative [facility] DEPARTMENT OF PATHOLOGY AND GENOMIC MEDICINE Nitrite, UA Negative Negative [facility] DEPARTMENT OF PATHOLOGY AND GENOMIC MEDICINE Urobilinogen, Negative <2.0 [facility] DEPARTMENT OF PATHOLOGY AND GENOMIC MEDICINE Leukocyte Large (A) Negative [facility] esterase, DEPARTMENT OF PATHOLOGY AND GENOMIC MEDICINE Epithelial Few /HPF [facility] cells, DEPARTMENT OF PATHOLOGY AND GENOMIC MEDICINE Round Many 0 - 1 /HPF [facility] epithelial DEPARTMENT OF cells, PATHOLOGY AND GENOMIC MEDICINE WBC, UA 61-80 (H) 0 - 4 /HPF [facility] DEPARTMENT OF PATHOLOGY AND GENOMIC MEDICINE RBC, UA 11-20 (H) 0 - 5 /HPF [facility] DEPARTMENT OF PATHOLOGY AND GENOMIC MEDICINE Bacteria, UA Trace None seen [facility] DEPARTMENT OF PATHOLOGY AND GENOMIC MEDICINE WBC clumps, UA Many (A) [facility] DEPARTMENT OF PATHOLOGY AND GENOMIC MEDICINE Yeast, UA None seen [facility] DEPARTMENT OF PATHOLOGY AND GENOMIC MEDICINE Yeast with None seen [facility] pseudohyphae, DEPARTMENT OF UA PATHOLOGY AND GENOMIC MEDICINE Specimen Urine Performing Organization Address City/State/Zipcode Phone [place] [facility] [place] [address] [place] [address] PATHOLOGY AND GENOMIC MEDICINE * Gram stain (03/04/2018 1:15 PM CDT) Gram stain Moderate WBC's [facility] DEPARTMENT result Few Gram negative rods OF PATHOLOGY Comment: AND GENOMIC Specimen Information MEDICINE Specimen Source: Urine Specimen Site: Clean catch Specimen Urine Performing Organization Address City/State/Zipcode Phone Number [facility] DEPARTMENT OF [address] [place] [address] PATHOLOGY AND GENOMIC MEDICINE * Urine culture (03/04/2018 1:15 PM CDT) Urine culture Escherichia coli [facility] DEPARTMENT isolate >10-5 cfu/ml OF PATHOLOGY (A) AND GENOMIC Comment: MEDICINE Specimen Information Specimen Source: Urine Specimen Site: Clean catch Urine culture Enterococcus faecalis [facility] DEPARTMENT isolate 10-4 cfu/ml OF PATHOLOGY The performance AND GENOMIC characteristics of this assay MEDICINE on this isolate were validated by the Microbiology Laboratory at [facility].This source has not been approved by the U.S. Food and Drug Administration.The results are not intended to be used as the sole means for clinical diagnosis or patient management.The Microbiology Laboratory is authorized under the clinical Laboratory Improvement Amendments of 1988 (CLIA-88) to perform high complexity testing. This organism is Vancomycin Sensitive. (A) Urine culture Mixed Gram positive zak [facility] DEPARTMENT isolate 10-1 cfu/ml OF PATHOLOGY (A) [...] faecalis Performing Organization Address City/State/Zipcode Phone Number [facility] DEPARTMENT OF [address] [place] [address] PATHOLOGY AND GENOMIC MEDICINE * XR Shoulders [...] involving the AC joint and glenohumeral joint. [id number] Procedure Note Interface, Radiology Results Incoming - [...] involving the AC joint and glenohumeral joint. [facility]-[id number] Performing Organization Address City/State/Zipcode Phone Number [facility] [address] [place] [address] * Bone Density (02/27/2018 2:05 PM CDT) Specimen Narrative Performed At EXAMINATION:BONE DENSITY [facility] CLINICAL HISTORY:M81.0 Age-related osteoporosis without current pathological [...] bilateral femurs. Within normal range lumbar spine [facility]-[id number] A copy of this scans including a [...] bilateral femurs. Within normal range lumbar spine [facility]-[id number] A copy of this scans including a report detailing these results will follow. Note: The world health organization (WHO) has classified the patient's T-score as follows: Above (-1) as normal (-1) to (-2.5) as low (osteopenia) Below (-2.5) as abnormally low (osteoporosis, increased fracture risk) Performing Organization Address City/State/Zipcode Phone Number MARTINA REHMAN [address] [place] [address] after 02/05/2018 Insurance Type Payer Benefit Subscriber ID Effective Phone Address Plan / Dates Group Medicare MEDICARE MEDICARE xxxxxxxxxxx 2010- [place], PART A AND Present [place] B Commercial AARP AARP xxxxxxxxxxx [id number] SUPPLEMENT resent Advance Directives For more information, please contact: [phone] Patient Director Of Strategic Sales Explanation Type Date Recorded Advance Directives, 09/04/2016 10:22 PM Living Will and Medical Power of Bobbin Trucker Date Inactivated Comments Code Status Date Activated 08/19/2018 9:03 PM Full Code 08/13/2018 6:36 PM Code Status decision reached by: Patient
--- OUTSIDE RECORDS SUMMARY | 2019-02-06 18:52 | XMS REPORT | Continuity of Care Document ---
Author Author [facility] Address Unknown Phone Unavailable Care Team Providers Care Sales Operations Assistant Name Role Phone [employer] Unavailable Unavailable Problems Problem Status Onset Date Classification Date Reported Comments Source Essential hypertension Active Problem 11/19/2018 [facility] Infective myositis, unspecified toe Active Problem 11/19/2018 [facility] Hypothyroidism, unspecified Active Problem 11/19/2018 [facility] Other acute osteomyelitis, right ankle and foot Active Problem 11/19/2018 [facility] Pain in unspecified toe Active Problem 11/19/2018 [facility] Tinea unguium Active Problem 11/19/2018 [facility] Type 2 diabetes mellitus with foot ulcer Active Problem 11/19/2018 [facility] Noninfective gastroenteritis and colitis, unspecified Active Problem 11/19/2018 [facility] Pressure ulcer of other site, stage 4 Active Problem 11/19/2018 [facility] Pain in unspecified foot Active Problem 11/19/2018 [facility] Pressure ulcer of other site, unspecified stage Active Problem 11/19/2018 [facility] Other idiopathic peripheral autonomic neuropathy Active Problem 11/19/2018 [facility] Cellulitis of right toe Active Problem 11/19/2018 [facility] Gangrene, not elsewhere classified Active Problem 11/19/2018 [facility] Type 2 diabetes mellitus with diabetic neuropathy, unspecified Active Problem 11/19/2018 [facility] Acute lymphangitis, unspecified Active Problem 11/19/2018 [facility] Cellulitis, unspecified Active Problem 11/19/2018 [facility] Other specified local infections of the skin and subcutaneous tissue Active Problem 11/19/2018 [facility] Methicillin susceptible Staphylococcus aureus infection as the cause of diseases classified elsewhere Active Problem 11/19/2018 [facility] Abscess of bursa, right ankle and foot Active Problem 11/19/2018 [facility] Non-pressure chronic ulcer of other part of right foot with unspecified severity Active Problem 11/19/2018 [facility] Other Gram-negative sepsis Active Problem 11/19/2018 [facility] Abrasion, unspecified great toe, initial encounter Active Problem 11/19/2018 [facility] Low back pain Active Problem 11/19/2018 [facility] Disruption of external operation wound, not elsewhere classified, initial encounter Active Problem 11/19/2018 [facility] Disruption of external operation wound, not elsewhere classified, subsequent encounter Active Problem 11/19/2018 [facility] Chronic multifocal osteomyelitis, right ankle and foot Active Problem 11/19/2018 [facility] Hyperlipidemia, unspecified Active Problem 11/19/2018 [facility] Age-related osteoporosis without current pathological fracture Active Problem 11/19/2018 [facility] Rheumatoid arthritis without rheumatoid factor, multiple sites Active Problem 11/19/2018 [facility] Inflammatory polyarthropathy Active Problem 11/19/2018 [facility] Hyperuricemia without signs of inflammatory arthritis and tophaceous disease Active Problem 11/19/2018 [facility] Chronic kidney disease, stage 3 Active Problem 11/19/2018 [facility] Pain in left shoulder Active Problem 11/19/2018 [facility] Pain in unspecified hip Active Problem 11/19/2018 [facility] Peripheral vascular disease, unspecified Active Problem 11/19/2018 [facility] Chronic pain syndrome Active Problem 11/19/2018 [facility] Xerosis cutis Active Problem 11/19/2018 [facility] Other pruritus Active Problem 11/19/2018 [facility] Chronic kidney disease, stage 4 Active Problem 11/19/2018 [facility] Primary osteoarthritis, left shoulder Active Problem 11/19/2018 [facility] Type 1 diabetes mellitus with foot ulcer Active Diagnosis 05/12/2017 [facility] Pain in right toe Active Diagnosis 12/08/2017 [facility] Atherosclerosis of [place] arteries of left leg with ulceration of other part of foot Active Problem 11/19/2018 [facility] Other acute osteomyelitis, left ankle and foot Active Problem 11/19/2018 [facility] Non-pressure chronic ulcer of other part of left foot with necrosis of bone Active Problem 11/19/2018 [facility] Medications Medication Details Route Status Patient Instructions Ordering Provider Order Date Source Cefazolin in D5W as directed Intravenous Active 2 Grams- Solution Reconstituted Intravenous Q 24 hours Nseir 06/26/2017 [facility] Tramadol HCl 1 tablet as needed Orally Active 50 mg Orally daily Nseir 05/09/2017 [facility] Gabapentin 1 tablet Orally Active 100 MG Orally twice a day (bid) Nseir 04/15/2017 [facility] Gabapentin 1 capsule Orally Active 400 MG Orally Q 12 hours Gosia 04/11/2017 [facility] Voltaren 2 grams Transdermal Active 1 % Transdermal four times a day (qid[facility]/03[facility]2017 [facility] Cefazolin in D5W as directed Intravenous Active 2 GM/100ML Intravenous Q 24 hours starting 12/29/16 [facility] 12/28/2016 [facility] Tramadol one tab orally Active 50 mg orally every 4-6 hours prn pain [facility] 12/21/2016 [facility] Silvadene 1 application to affected area Externally Active 1 % Externally Once a day [facility] 12/11/2016 [facility] Metoprolol Tartrate 1 tablet with food Orally Active 25 MG Orally Twice a day [facility] ALPRAZolam ER 1 tablet in the morning Orally Active 0.5 MG Orally Once a day [facility] Sucralfate 10 ml Orally Active 1 GM/10ML Orally Twice a day [facility] Levothyroxine Sodium 1 capsule on an empty stomach in the morning Orally Active 112 MCG Orally Once a day [facility] Amlodipine Besylate 1 tablet Orally Active 10 MG Orally Once a day [facility] HydrOXYzine HCl 1 tablet as needed Orally Active 50 MG Orally daily [facility] Atorvastatin Calcium 1 tablet Orally Active 20 MG Orally daily [facility] Alendronate Sodium 1 tablet Orally Active 70 MG Orally weekly [facility] Mirtazapine 1 tablet Orally Active 15 MG Orally daily [facility] Levothyroxine Sodium 1 capsule on an empty stomach in the morning Orally Active 112 MCG Orally Once a day [facility] Allergies, Adverse Reactions, Alerts Substance [...] [facility] Temperature Oral (F) 97.0 F 06/25/2017 [facility] Diastolic (mm Hg) 73 06/25/2017 [facility] Weight 135 01/15/2017 [facility] Systolic (mm Hg) 111 01/15/2017 [facility] Respitory Rate 16 01/15/2017 [facility] Heart Rate 63 01/15/2017 [facility] Temperature Oral (F) 97.5 F 01/15/2017 [facility] Diastolic (mm Hg) 68 01/15/2017 [facility] Weight 135 01/03/2017 [facility] Systolic (mm Hg) 120 01/03/2017 [facility] Respitory Rate 16 01/03/2017 [facility] Heart Rate 64 01/03/2017 [facility] Temperature Oral (F) 97.6 F 01/03/2017 [facility] Diastolic (mm Hg) 60 01/03/2017 [facility] Weight 144 12/25/2016 [facility] Systolic (mm Hg) 132 12/25/2016 [facility] Respitory Rate 16 12/25/2016 [facility] Heart Rate 74 12/25/2016 [facility] Temperature Oral (F) 98.8 F 12/25/2016 [facility] Diastolic (mm Hg) 66 12/25/2016 [facility] Weight 138 12/11/2016 [facility] Systolic (mm Hg) 126 12/11/2016 [facility] Respitory Rate 16 12/11/2016 [facility] Heart Rate 69 12/11/2016 [facility] Temperature Oral (F) 99.2 F 12/11/2016 [facility] Diastolic (mm Hg) 80 12/11/2016 [facility] Encounters No Data Provided for This [...]
[2019-02-06] MEDS: SODIUM CHLORIDE 0.9% 1000ML 1,000 ML IV SCH (19:18)
--- NOTE | 2019-02-06 20:20 | NUR ---
PT ARRIVED TO ROOM 104 BY STRETCHER. PT IS AAOX3, RR EVEN AND NON-LABORED, ON ROOM AIR. NO S/SX OF DISTRESS NOTED. FAMILY AT BEDSIDE. ORIENTED PT TO HOSPITAL ROOM, CALL LIGHT, PHONE, BED CONTROLS AND LIGHTS. LEFT PT LAYING SEMI FOWLERS IN BED, BED IN LOW LOCKED POSITION, SIDE RAILS UPX2, CALL LIGHT AND PHONE WITHIN REACH.
[2019-02-06 20:38] VITALS: BP 147/62
[2019-02-06] MEDS: INSULIN LISPRO 100 UNIT/1 ML 3ML VIAL SQ SCH (20:49)
--- NOTE | 2019-02-06 20:53 | NUR ---
CONSULTATION CALLED TO MD Amrit KIM CONCERNING CONSULTATION. WAITING FOR CALLBACK.
[2019-02-06] MEDS ORDERED: LEVOTHYROXINE112 MCG PO (21:00)
[2019-02-06] MEDS ORDERED: LISINOPRIL-HCT1 EAC2 PO (21:00)
[2019-02-06] MEDS ORDERED: MIRTAZAPINE15 MG PO (21:00)
[2019-02-06] MEDS ORDERED: HYDROXYZINE HCL25 MG PO (21:00)
[2019-02-06] MEDS ORDERED: ALPRAZOLAM0.5 MG PO (21:00)
[2019-02-06 21:20] VITALS: BP 147/62
[2019-02-06] MEDS: HYDROXYZINE HCL 25 MG TAB PO PRN (23:45)
[2019-02-07] VITALS (9 sets, daily range): BP systolic 111–156; BP diastolic 53–72
[2019-02-07 02:28] LABS: CREATINE KINASE MB 0.6 ng/mL (0-5.0)
--- NOTE | 2019-02-07 03:00 | NUR ---
NOTIFIED MD Amrit KIM ABOUT CONSULTATION. NO NEW ORDERS AT THIS TIME.
[2019-02-07 05:38] LABS: BASOPHILS % 0.5 % (0.0-1.0); EOSINOPHILS # (AUTO) 0.2 (0.0-0.4); EOSINOPHILS % 2.7 % (0.0-6.0); HEMATOCRIT 26.3 % (34.2-44.1); HEMOGLOBIN 8.4 g/dL (12.0-16.0); LYMPHOCYTES # (AUTO) 2.6 (1.0-3.2); LYMPHOCYTES % 30.7 % (18.0-39.1); MEAN CORPUSCULAR HEMOGLOBIN 31.9 pg (28-32); MEAN CORPUSCULAR HGB CONC 31.9 g/dL (31-35); MONOCYTES # (AUTO) 0.6 (0.2-0.8); MONOCYTES % 7.5 % (4.4-11.3); NEUTROPHILS # (AUTO) 4.9 (2.1-6.9); NEUTROPHILS % 58.1 % (38.7-80.0); PLATELET COUNT 163 x10e3/uL (140-360); RED BLOOD COUNT 2.63 x10e6/uL (3.6-5.1); RED CELL DISTRIBUTION WIDTH 15.1 % (11.7-14.4)
[2019-02-07] MEDS: LEVOTHYROXINE SODIUM 112 MCG TAB PO SCH (05:41)
[2019-02-07 05:55] LABS: ALBUMIN 2.9 g/dL (3.5-5.0); ALBUMIN/GLOBULIN RATIO 0.7 (0.8-2.0); ANION GAP 15.9 mmol/L (8-16); CALCIUM 9.8 mg/dL (8.4-10.2); CREATININE, SERUM 3.91 mg/dL (0.57-1.11); MAGNESIUM 4.2 MG/DL (1.3-2.1)
[2019-02-07 05:59] LABS: POTASSIUM 2.9 mmol/L (3.5-5.1)
--- NOTE | 2019-02-07 05:59 | NUR ---
PAGE PLACED FOR MD CERVANTES CONCERNING CRITICAL POTASSIUM RESULT. WAITING FOR CALLBACK.
[2019-02-07] MEDS ORDERED: POTASSIUM CHLORIDE 20 MEQ TAB CR PO ONE ×2 (06:00→08:00)
--- NOTE | 2019-02-07 06:06 | NUR ---
SPOKE WITH MD CERVANTES CONCERNING CRITICAL POTASSIUM LEVEL. NEW ORDERS RECEIVED.
[2019-02-07 06:15] LABS: CREATINE KINASE MB 0.7 ng/mL (0-5.0)
[2019-02-07] MEDS: SODIUM CHLORIDE 0.9% 1000ML 1,000 ML IV SCH ×2 (07:18→20:44)
[2019-02-07] MEDS: INSULIN LISPRO 100 UNIT/1 ML 3ML VIAL SQ SCH ×4 (07:30→20:44)
[2019-02-07] MEDS: LISINOPRIL 10 MG TAB PO SCH (08:22)
[2019-02-07] MEDS: PANTOPRAZOLE SOD 40 MG TABEC PO SCH ×2 (08:23→17:40)
[2019-02-07] MEDS: METOPROLOL TARTRATE 25 MG TAB PO SCH ×2 (08:23→17:00)
[2019-02-07] MEDS: SUCRALFATE 1 GM TAB PO SCH ×4 (08:23→22:10)
[2019-02-07] MEDS: ALPRAZOLAM 0.5 MG TAB PO SCH (08:24)
[2019-02-07] MEDS ORDERED: HYDROCHLOROTHIAZIDE 25 MG TAB PO SCH (09:00)
--- NOTE | 2019-02-07 11:31 | NUR ---
Call to recovery and spoke with Dr. Amrit Dorman about plan for colonoscopy and he deferred to anesthesiology if they will be ok to proceed given patient's electrolyte imbalance. Patient hemodynamically improved at this point and still on clear liquid, will monitor while waiting for input from anesthesiology
[2019-02-07 13:41] LABS: CREATINE KINASE MB 0.7 ng/mL (0-5.0)
[2019-02-07] MEDS ORDERED: GLUCAGON FOR INJ 1 MG VIAL ONE (14:24)
[2019-02-07] MEDS ORDERED: PROPOFOL IV EMULSION 10 MG/ML 50 ML VIAL ONE (14:24)
[2019-02-07] MEDS ORDERED: MIDAZOLAM HCL 2 MG/2 ML VIAL ONE (14:30)
[2019-02-07] MEDS ORDERED: FENTANYL CITRATE/PF 100MCG/2 ML INJ ONE (14:30)
--- NOTE | 2019-02-07 14:46 | History and Physical ---
HISTORY OF PRESENT ILLNESS: The patient is essentially a 73-year-old female with past medical history positive for diabetes, history of hypertension, who was initially admitted to the hospital because she was apparently having the preparation for the colonoscopy. She started getting really weak, came to the emergency room. She was found to be in acute renal failure, admitted to the hospital for IV fluids. REVIEW OF SYSTEMS: CARDIOVASCULAR: No chest pain or palpitation. RESPIRATORY: No shortness of breath. No cough. GASTROINTESTINAL: No nausea or vomiting. No diarrhea. GENITOURINARY: No frequency. No dysuria. ALLERGIES: SHE IS ALLERGIC TO PENICILLIN. SOCIAL HISTORY: She is a smoker since she was 13 years old. She still is smoking half a pack a day. No alcohol. PAST MEDICAL HISTORY: Hypertension, diabetes, hypothyroidism. PHYSICAL EXAMINATION: VITAL SIGNS: Blood pressure 140/63, temperature 98.6, heart rate 62 per minute, respiratory rate 18 per minute, oxygen saturation 98%. HEART: Showed regular rhythm. Normal S1, S2 sound. LUNGS: Clear bilaterally. ABDOMEN: Soft and nontender. No distention. No visceromegaly. EXTREMITIES: Show no evidence of cyanosis or hematoma. LABORATORY DATA: On the BMP; sodium 138, potassium 2.9, chloride 112, CO2 13, BUN 48, creatinine 3.91, glucose 68. On the CBC; white blood count 8.49, hemoglobin 8.4, hematocrit 26.3, platelet count 160,000, PT 15.2, INR 1.14, PTT 30.9. AST 51, ALT 34, total bilirubin 0.4, alkaline phosphatase 127. FINAL IMPRESSION: 1. Acute on chronic renal failure stage 3. 2. Uncontrolled diabetes mellitus type 2 with chronic renal insufficiency. 3. Hypertension with hypertensive nephropathy. 4. Hypokalemia. 5. Hypothyroidism. PLAN OF TREATMENT: Continue IV fluids, normal saline 75 mL an hour, Zofran 4 mg IV q.4 hours as needed for nausea and vomiting. Continue monitoring blood sugar before meals and at bedtime. Continue levothyroxine 112 mcg daily, Carafate 1 g three times q.6 hours, alprazolam 0.5 mg daily, metoprolol 50 mg twice a day, lisinopril 10 mg daily, Lipitor 20 mg at bedtime, Remeron 15 mg at bedtime. We are going to obviously discontinue hydrochlorothiazide because of renal failure. Continue hydroxyzine 50 mg at bedtime and Protonix 40 mg twice a day[address] Dr. Sy Dorman has been consulted from the Gastroenterology point of view, he was going to do the colonoscopy. We are going to get a renal ultrasound. Recheck the BMP tomorrow. MD ERIKA Armendariz/M[facility]HT[facility] /[id number]
[2019-02-07 16:08] LABS: ANION GAP 14.2 mmol/L (8-16); CALCIUM 10.2 mg/dL (8.4-10.2); CREATININE, SERUM 3.39 mg/dL (0.57-1.11); POTASSIUM 4.2 mmol/L (3.5-5.1)
--- NOTE | 2019-02-07 17:17 | NUR ---
Order obtained for EGD and Colonoscopy from Dr. Amrit Dorman
--- NOTE | 2019-02-07 18:30 | NUR ---
Patient picked up at this time for procedure
--- NOTE | 2019-02-07 18:51 | NUR ---
REPORT RECEIVED. PT OFF UNIT FOR PROCEDURE.
[2019-02-07] MEDS ORDERED: HYOSCYAMINE 0.125 MG TAB ONE (19:14)
--- NOTE | 2019-02-07 20:22 | NUR ---
RECEIVED REPORT FROM ALEXEY FOR PT RETURNING FROM PROCEDURE.
--- NOTE | 2019-02-07 20:30 | NUR ---
PT ARRIVED TO ROOM BY HOSPITAL BED. AAOX3, RR EVEN AND NON-LABORED, ON ROOM AIR. NO S/SX OF DISTRESS NOTED. LEFT PT LAYING SEMI FOWLERS IN BED, BED IN LOW LOCKED POSITION, SIDE RAILS UPX2, CALL LIGHT AND PHONE WITHIN REACH.
[2019-02-07] MEDS: MIRTAZAPINE 15 MG TAB PO SCH (22:10)
[2019-02-07] MEDS: HYDROXYZINE HCL 25 MG TAB PO PRN (22:10)
[2019-02-07] MEDS: ATORVASTATIN 10 MG TAB PO SCH (22:10)
[2019-02-08] VITALS (8 sets, daily range): BP systolic 115–173; BP diastolic 53–71
[2019-02-08] MEDS: SODIUM CHLORIDE 0.9% 1000ML 1,000 ML IV SCH (04:02)
[2019-02-08] MEDS: LEVOTHYROXINE SODIUM 112 MCG TAB PO SCH (06:03)
[2019-02-08 06:38] LABS: ANION GAP 11.5 mmol/L (8-16); CALCIUM 10.1 mg/dL (8.4-10.2); CREATININE, SERUM 2.68 mg/dL (0.57-1.11); POTASSIUM 3.5 mmol/L (3.5-5.1)
[2019-02-08] MEDS: INSULIN LISPRO 100 UNIT/1 ML 3ML VIAL SQ SCH ×4 (07:30→21:13)
--- NOTE | 2019-02-08 07:35 | NUR ---
Received patient this morning, a/ox3, no resp distress, call light within reach, no c/o pains, rounds completed, will monitor.
[2019-02-08] MEDS: LISINOPRIL 10 MG TAB PO SCH (09:00)
[2019-02-08] MEDS: METOPROLOL TARTRATE 25 MG TAB PO SCH ×2 (09:00→16:29)
[2019-02-08] MEDS: ALPRAZOLAM 0.5 MG TAB PO SCH (09:00)
[2019-02-08] MEDS: PANTOPRAZOLE SOD 40 MG TABEC PO SCH ×2 (09:00→16:29)
[2019-02-08] MEDS: SUCRALFATE 1 GM TAB PO SCH ×4 (09:00→21:13)
[2019-02-08] MEDS ORDERED: POTASSIUM CHLORIDE 20 MEQ TAB CR PO SCH (13:30)
--- NOTE | 2019-02-08 15:27 | Progress Note ---
DATE: Internal Medicine Progress Note SUBJECTIVE: She is doing and feeling better. PHYSICAL EXAMINATION: VITAL SIGNS: Blood pressure 136/58, temperature 37.1, heart rate 68 per minute, respiratory rate 20 per minute, and oxygen saturation 97%. HEART: Regular rhythm. Normal S1, S2 sound. LUNGS: Clear bilaterally. ABDOMEN: Soft. EXTREMITIES: No evidence of cyanosis or hematoma. LABORATORY DATA: On the BMP; sodium 138, potassium 3.5, chloride 117, CO2 13, BUN 38, creatinine 2.68, and glucose 78. CBC; white blood count 8.49, hemoglobin 8.4, hematocrit 26.3, and platelet count a 163,000. PT 15.2, INR 1.14, and PTT 30.9. AST 51, ALT 34, total bilirubin 0.4, and alkaline phosphatase 127. IMPRESSION: 1. Acute on chronic renal failure, stage 3. 2. Hypokalemia. 3. Uncontrolled diabetes mellitus type 2 with chronic renal insufficiency. 4. Hypertension with hypertensive nephropathy. 5. Hypothyroidism. PLAN OF TREATMENT: Continue normal saline 75 mL an hour, BMP tomorrow. Replace the potassium with 20 mEq x1 p.o. Continue Zofran 4 mg IV q.4 hours as needed. Continue monitoring blood sugar before meals and at bedtime. Continue D50 IV push as needed for hypoglycemia, levothyroxine 100 mcg daily, Carafate 1 g q.6 hours, alprazolam 0.5 mg daily, metoprolol 50 mg twice a day, lisinopril 10 mg daily, Lipitor 20 mg daily, Remeron 15 mg at bedtime, hydroxyzine 50 mg daily, and Protonix 40 mg twice a day. MD ERIKA Armendariz/[facility] /[id number]
[2019-02-08] MEDS: HYDROXYZINE HCL 25 MG TAB PO PRN (21:13)
[2019-02-08] MEDS: ATORVASTATIN 10 MG TAB PO SCH (21:13)
[2019-02-08] MEDS: MIRTAZAPINE 15 MG TAB PO SCH (21:13)
[2019-02-09 00:46] LABS: FERRITIN 832.54 ng/mL (4.63-204.00)
[2019-02-09 01:08] VITALS: BP 118/58
[2019-02-09 02:26] LABS: FOLATE > 40.0 ng/mL (7.0-15.4)
--- NOTE | 2019-02-09 04:55 | Operative Report ---
DATE OF PROCEDURE: 02/07/2019 SURGEON: Sy Dorman MD PROCEDURE: Colonoscopy. INDICATIONS FOR COLONOSCOPY: Surveillance colonoscopy, personal history of colon polyps, poor prep on previous colonoscopy. MEDICATION: The patient was done under MAC, please see anesthesiologist's note. PROCEDURE IN DETAIL: With the patient in left lateral decubitus position, the flexible fiberoptic Olympus colonoscope was inserted into the rectum with ease and advanced all the way to the ileocolic anastomosis. Anastomosis was intact. The scope was then withdrawn slowly. Mucosa overlying the transverse colon, descending, sigmoid, and rectum appeared to be within normal limits. The scope was then retroflexed into the distal rectum and small internal hemorrhoids were noted, none of which was actively bleeding. The scope was then straightened out and was subsequently withdrawn. The patient tolerated procedure well. IMPRESSION: 1. Anastomosis intact. 2. Internal hemorrhoids, none actively bleeding. PLAN: Initiate ADA diet. Followup colonoscopy in 5 years. If no polyps found, then no followup colonoscopy would be indicated. Sy Dorman MD [facility] [place]/M[facility]HT[facility] /[id number] cc: Osmin Marte DO
[2019-02-09 05:21] VITALS: BP 127/56
[2019-02-09] MEDS: SODIUM CHLORIDE 0.9% 1000ML 1,000 ML IV SCH (05:30)
[2019-02-09] MEDS: LEVOTHYROXINE SODIUM 112 MCG TAB PO SCH (05:30)
[2019-02-09 05:37] LABS: BASOPHILS % 0.3 % (0.0-1.0); EOSINOPHILS # (AUTO) 0.4 (0.0-0.4); EOSINOPHILS % 6.4 % (0.0-6.0); HEMATOCRIT 23.9 % (34.2-44.1); HEMOGLOBIN 7.8 g/dL (12.0-16.0); LYMPHOCYTES # (AUTO) 2.3 (1.0-3.2); LYMPHOCYTES % 39.2 % (18.0-39.1); MEAN CORPUSCULAR HEMOGLOBIN 32.5 pg (28-32); MEAN CORPUSCULAR HGB CONC 32.6 g/dL (31-35); MEAN CORPUSCULAR VOLUME 99.6 fL (81-99); MONOCYTES # (AUTO) 0.5 (0.2-0.8); MONOCYTES % 8.7 % (4.4-11.3); NEUTROPHILS # (AUTO) 2.7 (2.1-6.9); NEUTROPHILS % 45.1 % (38.7-80.0); PLATELET COUNT 129 x10e3/uL (140-360); RED CELL DISTRIBUTION WIDTH 14.6 % (11.7-14.4)
[2019-02-09 05:49] LABS: ANION GAP 10.5 mmol/L (8-16); CALCIUM 9.7 mg/dL (8.4-10.2); CREATININE, SERUM 1.89 mg/dL (0.57-1.11); POTASSIUM 3.5 mmol/L (3.5-5.1)
[2019-02-09 07:19] VITALS: BP 136/62
[2019-02-09] MEDS: INSULIN LISPRO 100 UNIT/1 ML 3ML VIAL SQ SCH (07:30)
[2019-02-09] MEDS: LISINOPRIL 10 MG TAB PO SCH (07:45)
[2019-02-09] MEDS: METOPROLOL TARTRATE 25 MG TAB PO SCH (07:45)
[2019-02-09] MEDS: PANTOPRAZOLE SOD 40 MG TABEC PO SCH (07:45)
[2019-02-09] MEDS: SUCRALFATE 1 GM TAB PO SCH (07:45)
[2019-02-09] MEDS: ALPRAZOLAM 0.5 MG TAB PO SCH (07:45)
[2019-02-09 08:24] VITALS: BP 136/62
--- NOTE | 2019-02-09 11:26 | NUR ---
SPOKE WITH MD Mary KIM DURING ROUNDS MD KIM HAS AGREED TO DISCHARGE PT AT THIS TIME
--- NOTE | 2019-02-09 11:31 | NUR ---
IMM EXPLAINED TO PT, SIGNED BY PT AND PLACED ON CHART COPY TO PT IN CARE TRANSITIONS FOLDER
[2019-02-09 11:50] VITALS: BP 112/52
--- NOTE | 2019-02-09 12:01 | NUR ---
DISCHARGE INSTRUCTIONS AND FOLLOW UPS GIVEN PT VERBALIZED UNDERSTANDING IV DC PRESSURE DRESSING APPLIED AND TAPED PT IS NOW OFF UNIT TO HOME AT THIS TIME
== END 2019-02-09 12:01 | disposition home or self-care (01) | DRG 683 ==
LOC: ER 14:07 → ERHOLD 18:13 → MED/SURG 20:24
PROC: 0DJD8ZZ Inspection of Lower Intestinal Tract, Via Natural or Artificial Opening Endoscopic (ICD-10-PCS; principal; 2019-02-07 19:17)
DX: I12.9 Hypertensive chronic kidney disease with stage 1 through stage 4 chronic kidney disease, or unspecified chronic kidney disease (principal); N17.9 Acute kidney failure, unspecified; E11.22 Type 2 diabetes mellitus with diabetic chronic kidney disease; N18.3 Chronic kidney disease, stage 3 (moderate); E87.6 Hypokalemia; E03.9 Hypothyroidism, unspecified; E11.65 Type 2 diabetes mellitus with hyperglycemia; F17.200 Nicotine dependence, unspecified, uncomplicated; D63.8 Anemia in other chronic diseases classified elsewhere
CPT/HCPCS: 36415; 45378; 71045; 80048; 80053; 82550; 82553; 82607; 82728; 82746; 82948; 83540; 83735; 84466; 84484; 85025; 85045; 85610; 85730; 93005; 99284; J1610; J2250; J3010; J3410; J7030; J7799

== ENCOUNTER → 2021-01-19 | Outpatient (CLI) | payer MEDICARE ==
[~2021-01-19] MED LIST changes: +ALPRAZOLAM0.5 MG PO; +HYDROXYZINE HCL25 MG PO; +LEVOTHYROXINE112 MCG PO; +LISINOPRIL-HCT1 EAC2 PO; +MIRTAZAPINE15 MG PO
== END ==
LOC: MAMMO 10:51
PROVIDERS: ATTEND Family Medicine
DX: N63.20 Unspecified lump in the left breast, unspecified quadrant (principal); N63.10 Unspecified lump in the right breast, unspecified quadrant; N64.52 Nipple discharge
CPT/HCPCS: 77066

== ENCOUNTER → 2021-07-07 | Outpatient (CLI) | payer MEDICARE | LOC: CARD 13:27 | PROVIDERS: ATTEND Podiatrist | DX: E11.621 Type 2 diabetes mellitus with foot ulcer (principal); L97.411 Non-pressure chronic ulcer of right heel and midfoot limited to breakdown of skin; L97.521 Non-pressure chronic ulcer of other part of left foot limited to breakdown of skin; I73.89 Other specified peripheral vascular diseases | CPT/HCPCS: 93922; 93925 ==

== ENCOUNTER → 2021-07-10 | Outpatient (RCR) | payer MEDICARE ==
[~2021-07-10] MED LIST changes: +COLLAGENASE OINTMENT 30 GM TUBE ONE; +LIDOCAINE VISC 2% SOLN 15 ML UDC ONE; +TRYPSIN/BALSAM PERU/CASTOR OIL ONE
== END ==
LOC: WCC 06-26 10:01
PROVIDERS: ATTEND Internal Medicine Infectious Disease
DX: E11.621 Type 2 diabetes mellitus with foot ulcer (principal); E11.622 Type 2 diabetes mellitus with other skin ulcer; E11.65 Type 2 diabetes mellitus with hyperglycemia; U07.1 COVID-19; L89.159 Pressure ulcer of sacral region, unspecified stage; L97.418 Non-pressure chronic ulcer of right heel and midfoot with other specified severity; L97.428 Non-pressure chronic ulcer of left heel and midfoot with other specified severity; N17.9 Acute kidney failure, unspecified; N28.9 Disorder of kidney and ureter, unspecified; I10 Essential (primary) hypertension; D50.8 Other iron deficiency anemias; F32.9 Major depressive disorder, single episode, unspecified; R26.89 Other abnormalities of gait and mobility
CPT/HCPCS: 36415; 82948

== ENCOUNTER 2021-07-29 11:58 | Inpatient (IN) | payer MEDICARE ==
[~2021-07-29] VITALS: Ht 157.5 cm; Wt 54.4 kg
[~2021-07-29 11:58] MED LIST changes: -COLLAGENASE OINTMENT 30 GM TUBE ONE; -LIDOCAINE VISC 2% SOLN 15 ML UDC ONE; -TRYPSIN/BALSAM PERU/CASTOR OIL ONE
[2021-07-29 12:48] LABS: BASOPHILS % 0.6 % (0.0-1.0); EOSINOPHILS % 0.8 % (0.0-6.0); HEMATOCRIT 35.5 % (34.2-44.1); LYMPHOCYTES # (AUTO) 1.7 (1.0-3.2); LYMPHOCYTES % 33.9 % (18.0-39.1); MEAN CORPUSCULAR HEMOGLOBIN 31.2 pg (28-32); MEAN CORPUSCULAR VOLUME 100.6 fL (81-99); MONOCYTES # (AUTO) 0.5 (0.2-0.8); MONOCYTES % 10.5 % (4.4-11.3); NEUTROPHILS # (AUTO) 2.7 (2.1-6.9); PLATELET COUNT 118 x10e3/uL (140-360); RED BLOOD COUNT 3.53 x10e6/uL (3.6-5.1); RED CELL DISTRIBUTION WIDTH 16.8 % (11.7-14.4)
[2021-07-29 12:53] LABS: INR 1.13; PROTHROMBIN TIME 15.5 seconds (11.9-14.5)
[2021-07-29 12:54] LABS: PARTIAL THROMBOPLASTIN TIME 33.1 seconds (23.8-35.5)
[2021-07-29 13:00] LABS: CLARITY,URINE TURBID (CLEAR); COLOR,URINE BROWN (YELLOW); LEUKOCYTE ESTERASE ,URINE MODERATE (NEGATIVE); NITRITE,URINE NEGATIVE (NEGATIVE); PROTEIN,URINE DIPSTICK >=300 (NEGATIVE)
[2021-07-29 13:01] LABS: KETONES,URINE NEGATIVE (NEGATIVE); URINE UROBILINOGEN 0.2 mg/dL (0.2 - 1)
[2021-07-29 13:03] LABS: ALBUMIN 1.3 g/dL (3.5-5.0); ALBUMIN/GLOBULIN RATIO 0.3 (0.8-2.0); ANION GAP 9.9 mmol/L (8-16); CALCIUM 7.5 mg/dL (8.4-10.2); CREATININE, SERUM 3.39 mg/dL (0.57-1.11); MAGNESIUM 1.7 MG/DL (1.3-2.1); POTASSIUM 3.9 mmol/L (3.5-5.1)
[2021-07-29 13:09] LABS: CREATINE KINASE MB 1.3 ng/mL (0-5.0)
[2021-07-29 13:11] LABS: BACTERIA,URINE FEW /HPF; EPITHELIAL CELLS,URINE FEW /LPF; RBC,URINE >50 /HPF (0-5); WBC,URINE (MAN) >50 /HPF (0-5)
[2021-07-29 13:17] LABS: B-TYPE NATRIURETIC PEPTIDE2 941.8 pg/mL (0-100)
[2021-07-29] MEDS ORDERED: ESTRADIOL1 MG PO (13:38)
[2021-07-29] MEDS ORDERED: HYDROCORTISONE10 MG PO (13:38)
[2021-07-29] MEDS ORDERED: CARVEDILOL12.5 MG PO (13:38)
[2021-07-29] MEDS ORDERED: NYSTATIN-TRIAMC15 GM TOP (13:38)
[2021-07-29] MEDS ORDERED: BUDESONIDE0.5 MG/2 M NEB (13:38)
[2021-07-29] MEDS ORDERED: FLANDERS BUTTOC30 GM TOP (13:38)
[2021-07-29] MEDS ORDERED: MIRTAZAPINE15 MG PO (13:38)
[2021-07-29] MEDS ORDERED: LEVOTHYROXINE112 MCG PO (13:38)
[2021-07-29] MEDS ORDERED: ULTRAM50 MG PO (13:38)
[2021-07-29] MEDS ORDERED: ALLOPURINOL100 MG PO (13:38)
[2021-07-29] MEDS ORDERED: PROTONIX20 MG PO (13:38)
[2021-07-29] MEDS ORDERED: MUCINEX DM ER1 EACH PO (13:38)
[2021-07-29] MEDS ORDERED: ONDANSETRON HCL INJ 2MG/ML 2ML 2 MG/ML VIAL IV PRN (14:00)
[2021-07-29] MEDS: MEROPENEM 500 MG in SODIUM CHLORIDE 0.9% 50ML 50 ML IV SCH ×2 (14:05→23:41)
[2021-07-29 15:29] VITALS: BP 157/64
[2021-07-29] MEDS ORDERED: LACTULOSE SYRUP 20 GM/30 ML UDC PO PRN (15:30)
[2021-07-29 15:40] VITALS: BP 157/64
[2021-07-29] MEDS: LACTULOSE SYRUP 20 GM/30 ML UDC PO SCH ×2 (15:45→21:00)
[2021-07-29] MEDS ORDERED: PROGESTERONE100 MG PO (15:58)
[2021-07-29] MEDS ORDERED: OMEPRAZOLE40 MG PO (15:58)
[2021-07-29] MEDS ORDERED: ASPIRIN81 MG PO (15:59)
[2021-07-29] MEDS ORDERED: LIOTHYRONINE SO5 MCG PO (16:00)
[2021-07-29] MEDS ORDERED: POTASSIUM CHLO10 ME1 PO (16:01)
[2021-07-29] MEDS ORDERED: DEXTROSE 50% SYRINGE 50 ML IV PRN (18:30)
[2021-07-29] MEDS: CARVEDILOL 12.5 MG TAB PO SCH (18:30)
[2021-07-29] MEDS: PANTOPRAZOLE SOD 40 MG TABEC PO SCH (18:30)
[2021-07-29] MEDS: LIOTHYRONINE SODIUM 5 MCG TAB PO SCH (18:30)
[2021-07-29] MEDS: METOPROLOL TARTRATE 50 MG TAB PO SCH (18:30)
[2021-07-29] MEDS ORDERED: HYDRALAZINE HCL 20 MG/ML VIAL IV PRN (18:30)
[2021-07-29] MEDS ORDERED: SODIUM CHLORIDE 0.9% 1000ML 1,000 ML ONE ×2 (18:38→19:18)
[2021-07-29] MEDS ORDERED: HEPARIN SOD (PORCINE) 1000 UNIT/ML SDV ONE (18:38)
[2021-07-29 20:00] VITALS: BP 157/64
[2021-07-29] MEDS: ACETAMINOPHEN 325 MG TAB PO PRN (20:45)
[2021-07-29 21:00] VITALS: BP 112/75
[2021-07-29] MEDS: INSULIN LISPRO 100 UNIT/1 ML 3ML VIAL SQ SCH (21:00)
[2021-07-29] MEDS ORDERED: SODIUM CHLORIDE 0.9% 250ML 250 ML ONE (23:28)
[2021-07-30] VITALS (14 sets, daily range): BP systolic 140–162; BP diastolic 51–87
[2021-07-30] MEDS ORDERED: RIFAXIMIN 550 MG TABLET PO SCH (02:15)
[2021-07-30 02:26] LABS: % IRON SATURATION 24 % (15-50); IRON 31 ug/dL (50-170); TOTAL IRON BINDING CAPACITY 130 ug/dL (261-478); TRANSFERRIN 93 mg/dL (180-382)
[2021-07-30 07:05] LABS: BASOPHILS % 0.5 % (0.0-1.0); EOSINOPHILS # (AUTO) 0.1 (0.0-0.4); EOSINOPHILS % 1.2 % (0.0-6.0); HEMATOCRIT 36.3 % (34.2-44.1); HEMOGLOBIN 11.4 g/dL (12.0-16.0); LYMPHOCYTES # (AUTO) 1.5 (1.0-3.2); MEAN CORPUSCULAR HEMOGLOBIN 30.8 pg (28-32); MEAN CORPUSCULAR HGB CONC 31.4 g/dL (31-35); MEAN CORPUSCULAR VOLUME 98.1 fL (81-99); MONOCYTES # (AUTO) 0.5 (0.2-0.8); MONOCYTES % 10.8 % (4.4-11.3); NEUTROPHILS # (AUTO) 2.3 (2.1-6.9); NEUTROPHILS % 53.3 % (38.7-80.0); PLATELET COUNT 131 x10e3/uL (140-360); RED CELL DISTRIBUTION WIDTH 16.3 % (11.7-14.4)
[2021-07-30 07:30] LABS: ALBUMIN 1.2 g/dL (3.5-5.0); ALBUMIN/GLOBULIN RATIO 0.3 (0.8-2.0); ANION GAP 8.3 mmol/L (8-16); CALCIUM 7.5 mg/dL (8.4-10.2); CREATININE, SERUM 1.83 mg/dL (0.57-1.11); POTASSIUM 3.3 mmol/L (3.5-5.1)
[2021-07-30] MEDS: INSULIN LISPRO 100 UNIT/1 ML 3ML VIAL SQ SCH ×4 (07:30→21:51)
[2021-07-30 07:56] LABS: CREATINE KINASE MB 1.3 ng/mL (0-5.0)
[2021-07-30] MEDS: LEVOTHYROXINE SODIUM 100 MCG TAB PO SCH (08:05)
[2021-07-30] MEDS ORDERED: POTASSIUM CHLORIDE 20 MEQ TAB CR PO STA (08:35)
[2021-07-30] MEDS: DOCUSATE SODIUM 100 MG CAP PO SCH (10:03)
[2021-07-30] MEDS: ASPIRIN 81 MG CHEW TAB PO SCH (10:03)
[2021-07-30] MEDS: MEROPENEM 500 MG in SODIUM CHLORIDE 0.9% 50ML 50 ML IV SCH ×2 (10:03→21:43)
[2021-07-30] MEDS: LIOTHYRONINE SODIUM 5 MCG TAB PO SCH ×2 (10:04→17:20)
[2021-07-30] MEDS: LACTULOSE SYRUP 20 GM/30 ML UDC PO SCH ×3 (10:04→21:43)
[2021-07-30] MEDS: CARVEDILOL 12.5 MG TAB PO SCH ×2 (10:04→17:20)
[2021-07-30] MEDS: PANTOPRAZOLE SOD 40 MG TABEC PO SCH ×2 (10:05→17:21)
[2021-07-30] MEDS: SENNOSIDES 8.6 MG TAB PO SCH (10:05)
[2021-07-30] MEDS: ALLOPURINOL 100 MG TAB PO SCH (10:05)
[2021-07-30] MEDS: METOPROLOL TARTRATE 50 MG TAB PO SCH ×2 (10:05→17:21)
[2021-07-30 15:44] LABS: CREATINE KINASE MB 1.2 ng/mL (0-5.0)
[2021-07-30] MEDS: ACETAMINOPHEN 325 MG TAB PO PRN (18:36)
[2021-07-31] VITALS (7 sets, daily range): BP systolic 103–177; BP diastolic 47–90
[2021-07-31] MEDS ORDERED: FOLIC ACID 1 MG TAB PO ONE (02:15)
[2021-07-31 06:13] LABS: BASOPHILS % 0.5 % (0.0-1.0); HEMATOCRIT 31.3 % (34.2-44.1); LYMPHOCYTES # (AUTO) 1.8 (1.0-3.2); LYMPHOCYTES % 44.1 % (18.0-39.1); MEAN CORPUSCULAR HEMOGLOBIN 31.3 pg (28-32); MEAN CORPUSCULAR HGB CONC 31.9 g/dL (31-35); MEAN CORPUSCULAR VOLUME 97.8 fL (81-99); MONOCYTES # (AUTO) 0.5 (0.2-0.8); MONOCYTES % 12.8 % (4.4-11.3); NEUTROPHILS # (AUTO) 1.7 (2.1-6.9); NEUTROPHILS % 41.4 % (38.7-80.0); PLATELET COUNT 118 x10e3/uL (140-360); RED CELL DISTRIBUTION WIDTH 16.3 % (11.7-14.4)
[2021-07-31 06:29] LABS: ALBUMIN 1.2 g/dL (3.5-5.0); ALBUMIN/GLOBULIN RATIO 0.3 (0.8-2.0); ANION GAP 7.6 mmol/L (8-16); CALCIUM 7.4 mg/dL (8.4-10.2); CREATININE, SERUM 2.62 mg/dL (0.57-1.11); MAGNESIUM 1.7 MG/DL (1.3-2.1); POTASSIUM 3.6 mmol/L (3.5-5.1)
[2021-07-31 07:04] LABS: CALCIUM IONIZED 1.2 mmol/L (1.09-1.30)
[2021-07-31] MEDS: INSULIN LISPRO 100 UNIT/1 ML 3ML VIAL SQ SCH ×4 (07:30→21:00)
[2021-07-31] MEDS: LIOTHYRONINE SODIUM 5 MCG TAB PO SCH ×2 (07:40→16:30)
[2021-07-31] MEDS: LEVOTHYROXINE SODIUM 100 MCG TAB PO SCH (07:40)
[2021-07-31] MEDS ORDERED: SODIUM CHLORIDE 0.9% 250ML 250 ML ONE (07:40)
[2021-07-31] MEDS: DOCUSATE SODIUM 100 MG CAP PO SCH (09:16)
[2021-07-31] MEDS: LACTULOSE SYRUP 20 GM/30 ML UDC PO SCH ×3 (09:16→21:00)
[2021-07-31] MEDS: MEROPENEM 500 MG in SODIUM CHLORIDE 0.9% 50ML 50 ML IV SCH ×2 (09:16→21:00)
[2021-07-31] MEDS: ASPIRIN 81 MG CHEW TAB PO SCH (09:16)
[2021-07-31] MEDS: ALLOPURINOL 100 MG TAB PO SCH (09:17)
[2021-07-31] MEDS: PANTOPRAZOLE SOD 40 MG TABEC PO SCH ×2 (09:17→17:30)
[2021-07-31] MEDS: CARVEDILOL 12.5 MG TAB PO SCH ×2 (09:17→17:29)
[2021-07-31] MEDS: METOPROLOL TARTRATE 50 MG TAB PO SCH ×2 (09:17→17:30)
[2021-07-31] MEDS: SENNOSIDES 8.6 MG TAB PO SCH (09:17)
[2021-07-31] MEDS: IRON SUCROSE 100 MG in SODIUM CHLORIDE 0.9% 100 ML 100 ML IV SCH (12:13)
[2021-07-31] MEDS: FOLIC ACID 1 MG TAB PO SCH (12:13)
[2021-07-31] MEDS ORDERED: ONDANSETRON HCL 4 MG ORAL DISINTEGRATING TAB PO PRN (17:15)
[2021-07-31] MEDS: ACETAMINOPHEN 325 MG TAB PO PRN (21:53)
[2021-08-01 05:47] VITALS: BP 121/85
[2021-08-01] MEDS ORDERED: LEVOTHYROXINE SODIUM 100 MCG TAB PO SCH (06:00)
[2021-08-01] MEDS: LIOTHYRONINE SODIUM 5 MCG TAB PO SCH ×2 (06:15→17:01)
[2021-08-01] MEDS: INSULIN LISPRO 100 UNIT/1 ML 3ML VIAL SQ SCH ×3 (07:30→17:42)
[2021-08-01] MEDS: MEROPENEM 500 MG in SODIUM CHLORIDE 0.9% 50ML 50 ML IV SCH (07:30)
[2021-08-01 08:50] VITALS: BP 125/99
[2021-08-01] MEDS ORDERED: COLLAGENASE 5 GM TUBE TOP SCH ×2 (09:00)
[2021-08-01] MEDS: CARVEDILOL 12.5 MG TAB PO SCH ×2 (09:00→17:03)
[2021-08-01] MEDS: METOPROLOL TARTRATE 50 MG TAB PO SCH ×2 (09:00→17:03)
[2021-08-01 09:06] LABS: ANION GAP 9.9 mmol/L (8-16); CALCIUM 7.3 mg/dL (8.4-10.2); CREATININE, SERUM 3.3 mg/dL (0.57-1.11); POTASSIUM 3.9 mmol/L (3.5-5.1)
[2021-08-01] MEDS ORDERED: SODIUM CHLORIDE 0.9% 1000ML 2,000 ML ONE (09:19)
[2021-08-01 09:21] VITALS: BP 125/99
[2021-08-01] MEDS: LACTULOSE SYRUP 20 GM/30 ML UDC PO SCH ×2 (09:45→17:01)
[2021-08-01] MEDS: FOLIC ACID 1 MG TAB PO SCH (09:45)
[2021-08-01] MEDS: ASPIRIN 81 MG CHEW TAB PO SCH (09:45)
[2021-08-01] MEDS: ALLOPURINOL 100 MG TAB PO SCH (09:45)
[2021-08-01] MEDS: PANTOPRAZOLE SOD 40 MG TABEC PO SCH ×2 (09:45→17:03)
[2021-08-01] MEDS: DOCUSATE SODIUM 100 MG CAP PO SCH (09:45)
[2021-08-01] MEDS: SENNOSIDES 8.6 MG TAB PO SCH (09:45)
[2021-08-01] MEDS: ACETAMINOPHEN 325 MG TAB PO PRN (12:17)
[2021-08-01] MEDS: IRON SUCROSE 100 MG in SODIUM CHLORIDE 0.9% 100 ML 100 ML IV SCH (12:17)
[2021-08-01 12:30] VITALS: BP 104/54
[2021-08-01 17:18] VITALS: BP 121/81
== END 2021-08-01 18:44 | disposition home or self-care (01) | DRG 642 ==
LOC: ER 12:00 → ERHOLD 14:00 → MED/SURG3 14:41
PROC: 5A1D70Z Performance of Urinary Filtration, Intermittent, Less than 6 Hours Per Day (ICD-10-PCS; principal; 2021-07-29)
DX: E72.20 Disorder of urea cycle metabolism, unspecified (principal); G93.41 Metabolic encephalopathy; N18.6 End stage renal disease; U07.1 COVID-19; J12.82 Pneumonia due to coronavirus disease 2019; N39.0 Urinary tract infection, site not specified; L97.422 Non-pressure chronic ulcer of left heel and midfoot with fat layer exposed; L97.412 Non-pressure chronic ulcer of right heel and midfoot with fat layer exposed; M86.8X7 Other osteomyelitis, ankle and foot; E11.22 Type 2 diabetes mellitus with diabetic chronic kidney disease; Z99.2 Dependence on renal dialysis; E78.5 Hyperlipidemia, unspecified; E11.21 Type 2 diabetes mellitus with diabetic nephropathy; Z79.899 Other long term (current) drug therapy; G47.00 Insomnia, unspecified; I10 Essential (primary) hypertension; T50.2X5A Adverse effect of carbonic-anhydrase inhibitors, benzothiadiazides and other diuretics, initial encounter; E11.621 Type 2 diabetes mellitus with foot ulcer; E11.69 Type 2 diabetes mellitus with other specified complication; L89.159 Pressure ulcer of sacral region, unspecified stage; E11.40 Type 2 diabetes mellitus with diabetic neuropathy, unspecified; M10.9 Gout, unspecified; K74.60 Unspecified cirrhosis of liver; F03.90 Unspecified dementia, unspecified severity, without behavioral disturbance, psychotic disturbance, mood disturbance, and anxiety; D50.9 Iron deficiency anemia, unspecified; E03.9 Hypothyroidism, unspecified; Z74.01 Bed confinement status
CPT/HCPCS: 36415; 70450; 71045; 76700; 80048; 80053; 80061; 81001; 82140; 82550; 82553; 82607; 82746; 82948; 83036; 83540; 83735; 83880; 84100; 84165; 84443; 84466; 84484; 85025; 85045; 85610; 85730; 87040; 87086; 93005; 94799; 97139; 99251; 99284; J0360; J1644; J1756; J2185; J2405; J7030; J7050; Q0162; U0002

== ENCOUNTER 2021-08-08 01:11 | Emergency (ER) | payer MEDICARE ==
[~2021-08-08] VITALS: Ht 152.4 cm; Wt 45.4 kg
[~2021-08-08 01:11] MED LIST changes: +ALLOPURINOL100 MG PO; +ASPIRIN81 MG PO; +BUDESONIDE0.5 MG/2 M NEB; +CARVEDILOL12.5 MG PO; +ESTRADIOL1 MG PO; +FLANDERS BUTTOC30 GM TOP; +HYDROCORTISONE10 MG PO; +LIOTHYRONINE SO5 MCG PO; +MUCINEX DM ER1 EACH PO; +NYSTATIN-TRIAMC15 GM TOP; +OMEPRAZOLE40 MG PO; +POTASSIUM CHLO10 ME1 PO; +PROGESTERONE100 MG PO; +PROTONIX20 MG PO; +ULTRAM50 MG PO
== END 2021-08-08 02:46 | disposition home or self-care (01) ==
LOC: ER 01:20
DX: L89.150 Pressure ulcer of sacral region, unstageable (principal); L89.629 Pressure ulcer of left heel, unspecified stage; L89.619 Pressure ulcer of right heel, unspecified stage; I12.0 Hypertensive chronic kidney disease with stage 5 chronic kidney disease or end stage renal disease; N18.6 End stage renal disease; Z99.2 Dependence on renal dialysis; I50.9 Heart failure, unspecified; E03.9 Hypothyroidism, unspecified
CPT/HCPCS: 99282

== ENCOUNTER 2021-09-27 11:45 | Outpatient (RCR) | payer MEDICARE ==
[~2021-09-27 11:45] MED LIST changes: +LIDOCAINE VISC 2% SOLN 15 ML UDC ONE; +LIDOCAINE/PRILOCAINE 2.5-2.5% KIT ONE; +TRYPSIN/BALSAM PERU/CASTOR OIL ONE
[2021-09-27] MEDS ORDERED: TRYPSIN/BALSAM PERU/CASTOR OIL ONE (13:04)
== END 2021-10-10 ==
LOC: WCC 11:45
PROVIDERS: ATTEND Internal Medicine Infectious Disease
DX: E11.621 Type 2 diabetes mellitus with foot ulcer (principal); E11.622 Type 2 diabetes mellitus with other skin ulcer; E11.65 Type 2 diabetes mellitus with hyperglycemia; L89.152 Pressure ulcer of sacral region, stage 2; M86.171 Other acute osteomyelitis, right ankle and foot; L97.418 Non-pressure chronic ulcer of right heel and midfoot with other specified severity; L97.428 Non-pressure chronic ulcer of left heel and midfoot with other specified severity; I73.89 Other specified peripheral vascular diseases; N28.9 Disorder of kidney and ureter, unspecified; N17.9 Acute kidney failure, unspecified; I10 Essential (primary) hypertension; U07.1 COVID-19; D50.8 Other iron deficiency anemias; F32.9 Major depressive disorder, single episode, unspecified; R26.89 Other abnormalities of gait and mobility; Y92.099 Unspecified place in other non-institutional residence as the place of occurrence of the external cause; Z01.810 Encounter for preprocedural cardiovascular examination
CPT/HCPCS: 11042 ×3; 36415 ×7; 82948 ×7; 84134; 87071; 87075; 87205; 97597 ×2; 99213 ×8; 99214; G0277 ×8

== ENCOUNTER 2022-01-03 14:17 | Outpatient (RCR) | payer MEDICARE ==
[~2022-01-03 14:17] MED LIST changes: -LIDOCAINE/PRILOCAINE 2.5-2.5% KIT ONE; +TRIAMCINOLONE ACET 0.1% CREAM 15 GM TUBE ONE; -TRYPSIN/BALSAM PERU/CASTOR OIL ONE
== END 2022-01-10 ==
LOC: WCC 14:17
PROVIDERS: ATTEND Internal Medicine Infectious Disease
DX: E11.621 Type 2 diabetes mellitus with foot ulcer (principal); E11.622 Type 2 diabetes mellitus with other skin ulcer; E11.65 Type 2 diabetes mellitus with hyperglycemia; M86.171 Other acute osteomyelitis, right ankle and foot; U07.1 COVID-19; L97.411 Non-pressure chronic ulcer of right heel and midfoot limited to breakdown of skin; I73.89 Other specified peripheral vascular diseases; M10.9 Gout, unspecified; J81.0 Acute pulmonary edema; N17.9 Acute kidney failure, unspecified; N18.6 End stage renal disease; I10 Essential (primary) hypertension; K74.60 Unspecified cirrhosis of liver; K85.90 Acute pancreatitis without necrosis or infection, unspecified; D50.8 Other iron deficiency anemias; N28.9 Disorder of kidney and ureter, unspecified; D69.6 Thrombocytopenia, unspecified; D63.1 Anemia in chronic kidney disease; E78.5 Hyperlipidemia, unspecified; S82.891A Other fracture of right lower leg, initial encounter for closed fracture; F32.9 Major depressive disorder, single episode, unspecified; J32.9 Chronic sinusitis, unspecified; K21.9 Gastro-esophageal reflux disease without esophagitis; R26.89 Other abnormalities of gait and mobility; Y92.099 Unspecified place in other non-institutional residence as the place of occurrence of the external cause; Z01.810 Encounter for preprocedural cardiovascular examination
CPT/HCPCS: 36415; 82948

== ENCOUNTER 2022-02-07 14:54 | Outpatient (RCR) | payer MEDICARE ==
[~2022-02-07 14:54] MED LIST changes: -LIDOCAINE VISC 2% SOLN 15 ML UDC ONE; -TRIAMCINOLONE ACET 0.1% CREAM 15 GM TUBE ONE
== END 2022-02-09 ==
LOC: WCC 14:54
PROVIDERS: ATTEND Podiatrist
DX: E11.621 Type 2 diabetes mellitus with foot ulcer (principal); E11.622 Type 2 diabetes mellitus with other skin ulcer; E11.65 Type 2 diabetes mellitus with hyperglycemia; L97.411 Non-pressure chronic ulcer of right heel and midfoot limited to breakdown of skin; L98.429 Non-pressure chronic ulcer of back with unspecified severity; U07.1 COVID-19; I73.89 Other specified peripheral vascular diseases; M10.9 Gout, unspecified; D69.6 Thrombocytopenia, unspecified; K74.60 Unspecified cirrhosis of liver; N18.6 End stage renal disease; N17.9 Acute kidney failure, unspecified; N28.9 Disorder of kidney and ureter, unspecified; J81.0 Acute pulmonary edema; I10 Essential (primary) hypertension; K85.90 Acute pancreatitis without necrosis or infection, unspecified; S82.891A Other fracture of right lower leg, initial encounter for closed fracture; D50.8 Other iron deficiency anemias; D63.1 Anemia in chronic kidney disease; E78.5 Hyperlipidemia, unspecified; F32.9 Major depressive disorder, single episode, unspecified; J32.9 Chronic sinusitis, unspecified; K21.9 Gastro-esophageal reflux disease without esophagitis; R26.89 Other abnormalities of gait and mobility; Y92.099 Unspecified place in other non-institutional residence as the place of occurrence of the external cause; Z01.810 Encounter for preprocedural cardiovascular examination
CPT/HCPCS: 36415; 82948